=== PATIENT | male | born 1950 | race Caucasian/White ===

== ENCOUNTER 2018-11-09 15:27 | Observation (INO) ==
[2018-11-09] MEDS ORDERED: KETOROLAC 30 MG/ML VIAL IV STA (15:52)
[2018-11-09] MEDS ORDERED: LABETALOL HCL IV 5 MG/ML 20ML IV PRN ×2 (15:52→20:53)
[2018-11-09] MEDS ORDERED: MAGNESIUM SULFATE / D5W 1 GM/100 ML BAG IV ONE (15:52)
[2018-11-09] MEDS ORDERED: SODIUM CHLORIDE 0.9% 1000ML 1,000 ML IV SCH (16:00)
[2018-11-09 16:12] LABS: Basophils # (auto) 0.02 K/uL (0-0.2); Basophils % (auto) 0.2 %; Eosinophils # (auto) 0.21 K/uL (0-0.5); Eosinophils % (auto) 1.9 %; Hematocrit (blood only) 44.9 % (42-52); Hemoglobin 15.5 g/dL (14.0-18.0); Immature Granulocytes # (auto) 0.03 K/uL (0.00-0.02); Immature Granulocytes % (auto) 0.3 %; Lymphocytes # (auto) 2.25 K/uL (1.2-3.4); Lymphocytes % (auto) 20.2 %; Mean Corpuscular Hgb Conc 34.5 g/dL (32-36); Mean Corpuscular Volume 81.8 fL (80-100); Mean Platelet Volume 11.1 fL (7.4-10.4); Monocytes # (auto) 0.62 K/uL (0.11-0.59); Monocytes % (auto) 5.6 %; Neutrophils # (auto) 7.99 K/uL (1.4-6.5); Neutrophils % (auto) 71.8 %; Platelet Count 203 K/uL (130-400); RDW Coefficient of Variation 13.6 % (11.5-14.5); RDW Standard Deviation 40.5 fL (36.4-46.3); Red Blood Count 5.49 M/uL (4.7-6.1); White Blood Count 11.12 K/uL (4.8-10.8)
[2018-11-09 16:14] LABS: Partial Thromboplastin Ratio 0.9; Partial Thromboplastin Time 25.1 Seconds (21.0-31.0); Prothrombin Time 10.6 Seconds (9.0-12.0)
[2018-11-09 16:15] LABS: iSTAT Creatinine 1.2 mg/dl (0.6-1.3); iSTAT Hemoglobin 15.3 g/dl (14.0-18.0); iSTAT Ionized Calcium 1.19 mmol/l (1.12-1.32); iSTAT Potassium 3.9 mEq/L (3.3-5.0)
--- NOTE | 2018-11-09 16:22 | XRay Report ---
XR chest 1V portable CLINICAL HISTORY: Pt c/o Rt sided numbness COMPARISON STUDY: No previous studies for comparison. FINDINGS: The bones soft tissues and hemidiaphragms are normal. The cardiomediastinal silhouette is n ormal. The lungs are clear. The pulmonary vasculature is normal. IMPRESSION: Negative chest. The above report was generated using voice recognition software. It may contain grammatical, syntax or spelling errors. Electronically signed by: Phill Seo M.D. 11/09/2018 4:20 PM
[2018-11-09 16:30] LABS: Alanine Aminotransferase 23 U/L (12-78); Albumin Level 3.7 gm/dl (3.4-5.0); Aspartate Aminotransferase 7 U/L (15-37); BUN Creatinine Ratio 10.7 (10-20); Blood Urea Nitrogen 12 mg/dl (7-18); Calcium 8.8 mg/dl (8.5-10.1); Carbon Dioxide 28 mmol/L (21-32); Chloride 105 mmol/L (98-107); Creatinine Clr Calc Pharmacy 70.5 ml/min; Est GFR (African American) 74.8; Est GFR (Non-African American) 64.6; Glucose 114 mg/dl (70-99); Potassium 3.9 mmol/L (3.5-5.1); Sodium 139 mmol/L (136-145)
[2018-11-09 16:35] LABS: Albumin Globulin Ratio 0.9 (0.9-2); Alkaline Phosphatase 94 U/L (45-117); Bilirubin,Total 0.8 mg/dl (0.2-1); Creatine Kinase MB 1.5 ng/ml (0.5-3.6); Globulin 3.9 gm/dl (2.5-4.0); Total Protein 7.6 gm/dl (6.4-8.2); Troponin I < 0.015 ng/ml (0-0.045)
[2018-11-09] MEDS ORDERED: OPTIRAY 320 125ml IV PRN (17:32)
--- NOTE | 2018-11-09 17:49 | CT Scan Report ---
HEAD & NECK CTA HISTORY: Pt c/o Rt sided numbness TECHNIQUE: Multiaxial CT images of the head were performed both before and after the the intravenous administration of contrast to evaluate the major cerebral vessels. Multiaxial CT images of the neck w ere also performed following the intravenous administration of contrast to evaluate the major cervica l vessels. Maximum intensity projection images were also obtained. A dose lowering technique was util ized adhering to the principles of ALARA. COMPARISON: None. FINDINGS: There is no mass, hematoma, midline shift, or acute infarct. Partial opacification of the left spheno id sinus with a fluid level. Visualized intracranial internal carotid arteries, distal vertebral [place], and basilar artery are widely patent. There is no significant stenosis, occlusion, or aneurysm seen within the bilateral ACAs, MCAs, or window shade cloth sewer. The aortic arch and proximal great vessels are widely patent. There is no significant stenosis, occ lusion, or dissection identified within the bilateral common carotid, internal carotid, or vertebral arteries. IMPRESSION: 1. No acute intracranial abnormality. 2. Partial opacification of the left sphenoid sinus with a fluid level. 3. No significant stenosis, occlusion, or aneurysm within the [place]. 4. No significant stenosis, occlusion, or dissection identified within the carotid or vertebral arter ies. Electronically signed by: Gold Adhikari M.D. 11/09/2018 5:48 PM
--- NOTE | 2018-11-09 17:49 | CT Scan Report ---
HEAD & NECK CTA HISTORY: Pt c/o Rt sided numbness TECHNIQUE: Multiaxial CT images of the head were performed both before and after the the intravenous administration of contrast to evaluate the major cerebral vessels. Multiaxial CT images of the neck w ere also performed following the intravenous administration of contrast to evaluate the major cervica l vessels. Maximum intensity projection images were also obtained. A dose lowering technique was util ized adhering to the principles of ALARA. COMPARISON: None. FINDINGS: There is no mass, hematoma, midline shift, or acute infarct. Partial opacification of the left spheno id sinus with a fluid level. Visualized intracranial internal carotid arteries, distal vertebral [place], and basilar artery are widely patent. There is no significant stenosis, occlusion, or aneurysm seen within the bilateral ACAs, MCAs, or digital product manager. The aortic arch and proximal great vessels are widely patent. There is no significant stenosis, occ lusion, or dissection identified within the bilateral common carotid, internal carotid, or vertebral arteries. IMPRESSION: 1. No acute intracranial abnormality. 2. Partial opacification of the left sphenoid sinus with a fluid level. 3. No significant stenosis, occlusion, or aneurysm within the [place]. 4. No significant stenosis, occlusion, or dissection identified within the carotid or vertebral arter ies. Electronically signed by: Gold Adhikari M.D. 11/09/2018 5:48 PM
--- NOTE | 2018-11-09 17:49 | CT Scan Report ---
HEAD & NECK CTA HISTORY: Pt c/o Rt sided numbness TECHNIQUE: Multiaxial CT images of the head were performed both before and after the the intravenous administration of contrast to evaluate the major cerebral vessels. Multiaxial CT images of the neck w ere also performed following the intravenous administration of contrast to evaluate the major cervica l vessels. Maximum intensity projection images were also obtained. A dose lowering technique was util ized adhering to the principles of ALARA. COMPARISON: None. FINDINGS: There is no mass, hematoma, midline shift, or acute infarct. Partial opacification of the left spheno id sinus with a fluid level. Visualized intracranial internal carotid arteries, distal vertebral k[place], and basilar artery are widely patent. There is no significant stenosis, occlusion, or aneurysm seen within the bilateral ACAs, MCAs, or ui architect. The aortic arch and proximal great vessels are widely patent. There is no significant stenosis, occ lusion, or dissection identified within the bilateral common carotid, internal carotid, or vertebral arteries. IMPRESSION: 1. No acute intracranial abnormality. 2. Partial opacification of the left sphenoid sinus with a fluid level. 3. No significant stenosis, occlusion, or aneurysm within the [place]. 4. No significant stenosis, occlusion, or dissection identified within the carotid or vertebral arter ies. Electronically signed by: Gold Adhikari M.D. 11/09/2018 5:48 PM
--- NOTE | 2018-11-09 19:54 | History & Physical Report ---
Date of Service November 09, 2018 Assessment & Plan (1) Stroke-like symptoms: This is a 68-year-old male with a PMH of HTN,DM II, HLD and smokeless tobacco use who presents with right sided tingling starting yesterday. -Paresthesias in face and RLE have resolved. Still experiencing paresthesias of R arm -BP was initially elevated at 195/104. Was given IV labetalol x2 with pressure decreasing to 169/102 -Evaluate for stroke vs. hypertensive urgency -Allow for permissive HTN in setting of possible ischemic stroke. IV Labetalol 10mg Q4H PRN for SBP >190 -CT head, CTA head/neck without any acute abnormality -Ordered MRI brain w/wo, echo w/ bubble study -Given full dose aspirin, asa 81mg ordered for the morning -Neuro checks -PT, OT, speech therapy evaluations -Routine neurology consult (2) Diabetes mellitus, type II: A1c of 7.6 in Sep 2018 -Hold home agents -SSI while in-patient -BSG AC HS (3) Hypertension: Continue Lisinopril tomorrow -PRN Labetalol added with parameters (4) Hyperlipidemia: Continue atorvastatin DVT Ppx: SQ Lovenox Code status: FULL PCP: Whitney Cox Dispo: Observation med tele. Plan to return home once medically stable. Patient seen in collaboration with Dr. Lynn. Please see addendum. History of Present Illness Chief Complaint: Right sided numbness/paresthesias Primary Care Provider: Fabian Cox This is a 68-year-old male with a PMH of HTN,DM II and HLD who presents with right sided tingling starting yesterday. Patient first noticed tingling in his right arm yesterday and by today that feeling had spread to his face and in his right lower extremity as well. Denies any numbness or weakness of right side. Denies any confusion, difficulty speaking, swallowing, muscle weakness or difficulty with ambulation. Denies history of DVT/PE or stroke personally but has family history of stroke. Chews tobacco daily. Denies any fever, chills, lightheadedness, headache, chest pain, palpitations, shortness of breath, nausea, vomiting, dysuria, hematuria, diarrhea or constipation. Upon presentation in the ED, blood pressure was initially elevated at 195/104. Was given IV labetalol x2 with pressure decreasing to 169/102. Underwent CT head, CXR, head CTA and neck CTA which were negative for acute abnormalities. Allergies Allergy/AdvReac Type Severity Reaction Status Date / Time No Known Allergies Allergy NONE Unverified 11/09/18 16:42 Home Medications Home Medications Medication Instructions Recorded Confirmed Type atorvastatin [Lipitor] 40 mg PO DAILY 11/09/18 11/09/18 History glyburide 5 mg PO QAM 11/09/18 11/09/18 History lisinopril [Zestril] 20 mg PO DAILY 11/09/18 11/09/18 History metformin [Glucophage] 1,000 mg PO BID 11/09/18 11/09/18 History Past Med/Surg History Medical History Diabetes mellitus, type II (Chronic) Hyperlipidemia (Chronic) Hypertension (Chronic) Hypertensive urgency (Acute) Stroke-like symptoms (Acute) Diabetes (Resolved) Surgical History No pertinent past surgical history (Chronic) Family History Mother Stroke Diabetes Social History Preferred Language: [place] Communication Ability: Effective Beliefs That Will Affect Care: None Current Living Situation: Spouse Other Information That Helps Us Care for You: No Feels Safe at Home: Yes Safety Concerns: Feels Safe At This Time Smoking Status: Never smoker Hx Alcohol Use: Yes Hx Substance Use: No Review of Systems All systems reviewed & are unremarkable except as noted in HPI & below Physical Exam Vital Signs (Past 24 Hours): Last Vital Signs Temp 36.6 C 11/09/18 15:31 Pulse 61 11/09/18 18:30 Resp 20 11/09/18 18:30 BP 165/99 H 11/09/18 18:30 Pulse Ox 94 11/09/18 18:30 Physical Exam: General Appearance: WD/WN, no apparent distress, resting comfortably Head: normocephalic, atraumatic Eyes: normal inspection, PERRL, EOMI ENT: hearing grossly normal, pharynx normal (moist mucous membranes) Neck: supple, no JVD, no adenopathy Respiratory/Chest: lungs clear to auscultation. No wheezes, rales or rhonci. No respiratory distress or accessory muscle use Cardiovascular: regular rate, rhythm, no murmur, normal peripheral pulses Abdomen/GI: normal bowel sounds, soft, non-tender to palpation Extremities/Musculoskelatal: normal inspection, no calf tenderness, normal capillary refill, no pedal edema Neurologic/Psych: alert, normal mood/affect, oriented x 3. CN II-XII grossly intact. Strength and sensation intact throughout. Skin: normal color, warm/dry Results & Data Laboratory Results Short CBC 11/09/18 Range/Units 15:45 WBC 11.12 H (4.8-10.8) K/uL Hgb 15.5 (14.0-18.0) g/dL Hct 44.9 (42-52) % Plt Count 203 (130-400) K/uL BMP 11/09/18 15:45 Sodium 139 Potassium 3.9 Chloride 105 Carbon Dioxide 28 BUN 12 Creatinine 1.15 Glucose 114 H Calcium 8.8 Cardiac Enzymes 11/09/18 Range/Units 15:45 CK-MB (CK-2) 1.5 (0.5-3.6) ng/ml Troponin I < 0.015 (0-0.045) ng/ml Liver Function 11/09/18 Range/Units 15:45 Total Bilirubin 0.8 (0.2-1) mg/dl AST 7 L (15-37) U/L ALT 23 (12-78) U/L Alkaline Phosphatase 94 (45-117) U/L Albumin 3.7 (3.4-5.0) gm/dl Diagnostic Findings CT head: IMPRESSION: 1. No acute intracranial abnormality. 2. Partial opacification of the left sphenoid sinus with a fluid level. 3. No significant stenosis, occlusion, or aneurysm within the [place]. 4. No significant stenosis, occlusion, or dissection identified within the carotid or vertebral arteries. CXR: IMPRESSION: Negative chest. CTA head: IMPRESSION: 1. No acute intracranial abnormality. 2. Partial opacification of the left sphenoid sinus with a fluid level. 3. No significant stenosis, occlusion, or aneurysm within the [place]. 4. No significant stenosis, occlusion, or dissection identified within the carotid or vertebral arteries. CTA neck: IMPRESSION: 1. No acute intracranial abnormality. 2. Partial opacification of the left sphenoid sinus with a fluid level. 3. No significant stenosis, occlusion, or aneurysm within the [place]. 4. No significant stenosis, occlusion, or dissection identified within the carotid or vertebral arteries. Supervising Physician Co-Signing Physician Notes Care coordinated with Melissa CLARK. Agree with able note. Patient seen and examined. Please refer to her notes for full details. Vital signs reviewed. Physical exam: General exam: Alert and oriented. Not in acute distress. CVS: S1 and S2 heard, regular rate and rhythm, no murmurs. RS: Clear to auscultation, no wheezing or crackles. ABD: Soft, bowel sounds present, nontender, no distention. CARCASS WASHER: Nonfocal. EXT: No edema, no erythema. Labs: Reviewed. Assessment and plan: CVA presented with one day duration of right hand paraesthesia ct head , cta head and neck unremrkable received aspirin in MRI head shows small left thalamus acute/subacute infarct follow echo pt/ot neurology consult HTN elevated to allow permissive HTN continue to lisinopril labetolol prn for sbp>190 Other diagnosis and plan of care as per []. Sg carrillo MD.
[2018-11-09] MEDS ORDERED: ONDANSETRON INJ 2 MG/ML 2 ML VIAL IV PRN (20:48)
[2018-11-09] MEDS ORDERED: GLUCOSE 40% GEL 15 GM TUBE PO PRN (20:48)
[2018-11-09] MEDS ORDERED: PHARMACIST DISCHARGE MED REC CONSULT PRN (20:48)
[2018-11-09] MEDS ORDERED: GLUCOSE 10 TABS/TUBE PO PRN (20:48)
[2018-11-09] MEDS ORDERED: CARBOHYDRATES FOR HYPOGLYCEMIA PO PRN (20:48)
[2018-11-09] MEDS ORDERED: GLUCAGON FOR INJ 1 MG VIAL SQ PRN (20:48)
[2018-11-09] MEDS ORDERED: POLYETHYLENE (MIRALAX) 17 GM PACK PO PRN (20:48)
[2018-11-09] MEDS ORDERED: ACETAMINOPHEN 325 MG TAB PO PRN (20:48)
[2018-11-09] MEDS ORDERED: DEXTROSE 50% 50 ML SYRINGE IV PRN (20:48)
[2018-11-09] MEDS ORDERED: ASPIRIN CHEW 324 MG PO STA ×2 (20:53→20:54)
[2018-11-09] MEDS: INSULIN ASPART 100 UNITS/ML 3 ML PEN SC SCH (22:11)
[2018-11-09] MEDS ORDERED: GADOBUTROL 65ML VIAL IV PRN (22:22)
--- NOTE | 2018-11-09 22:34 | Magnetic Resonance Report ---
MR brain wo/w con CLINICAL HISTORY: Rsided paresthesias COMPARISON STUDY: No previous studies for comparison. TECHNIQUE: Utilizing a 1.5 Snow magnet and dedicated coil, multiplanar, multiecho imaging of the br ain was performed pre and postcontrast administration. IV administration of 10 [address] was uneventful. FINDINGS: Diffusion-weighted as well as T2 images show a small focus of increased signal within the p osterior left thalamus. This is consistent with a cyst acute/subacute infarct. It measures no more th an 8 mm. Signal characteristics of the cerebellar as well as cerebral hemispheres otherwise indicate component s of age-related atrophy and chronic small vessel change. Postcontrast images are considered negative for an enhancing lesion. The internal artery canals are s ymmetric. There is no abnormal postcontrast enhancement. IMPRESSION: 1. Small acute/subacute infarct left thalamus. 2. This measures no more than 8 mm. 3. Study is otherwise negative for age. 4. Mild age-appropriate chronic small vessel change and atrophy. The above report was generated using voice recognition software. It may contain grammatical, syntax or spelling errors. Electronically signed by: Phill Seo M.D. 11/09/2018 10:31 PM
--- NOTE | 2018-11-09 23:57 | Emergency Department Note ---
Entered by Eve Mccoy acting as a scribe for History of Present Illness General Chief complaint: Stroke/CVA Symptoms Stated complaint: NUMBNESS ON ENTIRE RIGHT SIDE, TIRED Time Seen by Provider: 11/09/18 15:45 Source: patient and family Mode of arrival: ambulatory Limitations: no limitations History of Present Illness Onset (ago): hour(s) 3 Location: right (right side of body) Radiation: non-radiation Pain Consistency: + constant Quality: + other (numbness) Relieved By: + none Exacerbated By: + none Associated symptoms: + other (-abdominal pain); no headaches Treatments prior to arrival: none The patient is a 68 year old male who presents to the Emergency Room with complaints of possible stroke symptoms. He admits to a history of hypertension, DM and hyperlipidemia. Yesterday afternoon, he developed numbness in the right side of his body. He denies any recent headache or abdominal pain. He states he felt fine yesterday. Home Medications Home Medications Medication Instructions Recorded Confirmed Type atorvastatin [Lipitor] 40 mg PO DAILY 11/09/18 11/09/18 History glyburide 5 mg PO QAM 11/09/18 11/09/18 History lisinopril [Zestril] 20 mg PO DAILY 11/09/18 11/09/18 History metformin [Glucophage] 1,000 mg PO BID 11/09/18 11/09/18 History Allergies Allergy/AdvReac Type Severity Reaction Status Date / Time No Known Allergies Allergy NONE Unverified 11/09/18 16:42 Past Med/Surg History Medical History Diabetes mellitus, type II (Chronic) Hyperlipidemia (Chronic) Hypertension (Chronic) Hypertensive urgency (Acute) Stroke-like symptoms (Acute) Diabetes (Resolved) Surgical History No pertinent past surgical history (Chronic) Family History Mother Stroke Diabetes Social History Preferred Language: Korean Communication Ability: Effective Beliefs That Will Affect Care: None Current Living Situation: Spouse Other Information That Helps Us Care for You: No Feels Safe at Home: Yes Safety Concerns: Feels Safe At This Time Smoking Status: Never smoker Hx Alcohol Use: Yes Hx Substance Use: No Review of Systems See HPI for pertinent positives & negatives. and A total of 10 systems reviewed and were otherwise negative Physical Exam Vital Signs Vital Signs - 24 hr 11/09/18 15:31 11/09/18 16:06 11/09/18 16:16 Temperature 36.6 C Temperature Source Oral Sepsis Recent Fever Within 48 Hours No Sepsis Action Taken by Nursing No Action Required Pulse Rate 72 70 70 Pulse Rate [Left Radial] Pulse Rate from SpO2 Sensor Pulse Rhythm Regular Pulse Strength Normal Respiratory Rate 16 17 18 Respiratory Effort / Characteristics Non-Labored Respiratory Depth Normal Respiratory Pattern Regular Blood Pressure 195/104 H 173/102 H 169/103 H Blood Pressure [Left Radial Artery] Blood Pressure Mean 134 125 125 Blood Pressure Mean [Left Radial Artery] Blood Pressure Position Sitting Pulse Oximetry 97 Oxygen Delivery Method Room Air 11/09/18 17:39 11/09/18 18:00 11/09/18 18:30 Temperature Temperature Source Sepsis Recent Fever Within 48 Hours Sepsis Action Taken by Nursing Pulse Rate 69 63 61 Pulse Rate [Left Radial] Pulse Rate from SpO2 Sensor 68 63 61 Pulse Rhythm Pulse Strength Respiratory Rate 14 14 20 Respiratory Effort / Characteristics Respiratory Depth Respiratory Pattern Blood Pressure 169/102 H 167/97 H 165/99 H Blood Pressure [Left Radial Artery] Blood Pressure Mean 124 120 121 Blood Pressure Mean [Left Radial Artery] Blood Pressure Position Pulse Oximetry 95 93 94 Oxygen Delivery Method Room Air Room Air Room Air 11/09/18 18:40 11/09/18 18:50 11/09/18 19:00 Temperature Temperature Source Sepsis Recent Fever Within 48 Hours Sepsis Action Taken by Nursing Pulse Rate 60 61 60 Pulse Rate [Left Radial] Pulse Rate from SpO2 Sensor 60 61 60 Pulse Rhythm Pulse Strength Respiratory Rate 16 16 15 Respiratory Effort / Characteristics Respiratory Depth Respiratory Pattern Blood Pressure 155/91 H Blood Pressure [Left Radial Artery] Blood Pressure Mean 112 Blood Pressure Mean [Left Radial Artery] Blood Pressure Position Pulse Oximetry 94 93 93 Oxygen Delivery Method 11/09/18 19:10 11/09/18 19:20 11/09/18 19:30 Temperature Temperature Source Sepsis Recent Fever Within 48 Hours Sepsis Action Taken by Nursing Pulse Rate 64 61 61 Pulse Rate [Left Radial] Pulse Rate from SpO2 Sensor 64 61 62 Pulse Rhythm Pulse Strength Respiratory Rate 18 15 17 Respiratory Effort / Characteristics Respiratory Depth Respiratory Pattern Blood Pressure 171/100 H Blood Pressure [Left Radial Artery] Blood Pressure Mean 123 Blood Pressure Mean [Left Radial Artery] Blood Pressure Position Pulse Oximetry 93 94 94 Oxygen Delivery Method 11/09/18 19:40 11/09/18 19:50 11/09/18 20:28 Temperature Temperature Source Sepsis Recent Fever Within 48 Hours Sepsis Action Taken by Nursing Pulse Rate 62 61 62 Pulse Rate [Left Radial] Pulse Rate from SpO2 Sensor 61 61 Pulse Rhythm Pulse Strength Respiratory Rate 15 19 16 Respiratory Effort / Characteristics Respiratory Depth Respiratory Pattern Blood Pressure 182/111 H Blood Pressure [Left Radial Artery] Blood Pressure Mean Blood Pressure Mean [Left Radial Artery] Blood Pressure Position Pulse Oximetry 93 93 98 Oxygen Delivery Method Room Air 11/09/18 20:55 11/09/18 23:12 Temperature 36.7 C 36.5 C Temperature Source Oral Oral Sepsis Recent Fever Within 48 Hours Sepsis Action Taken by Nursing Pulse Rate Pulse Rate [Left Radial] 60 60 Pulse Rate from SpO2 Sensor Pulse Rhythm Pulse Strength Respiratory Rate 22 22 Respiratory Effort / Characteristics Respiratory Depth Respiratory Pattern Blood Pressure Blood Pressure [Left Radial Artery] 205/102 H 178/100 H Blood Pressure Mean Blood Pressure Mean [Left Radial Artery] 136 126 Blood Pressure Position Pulse Oximetry 98 97 Oxygen Delivery Method GENERAL: Awake, alert, well-appearing, in no distress HENT: Normocephalic, atraumatic. Oropharynx unremarkable. EYES: Normal conjunctiva. Sclera non-icteric. NECK: Supple. No nuchal rigidity. FROM. No masses. RESPIRATORY: Clear to auscultation. No wheezes. No rales. Normal respiratory effort. CARDIAC: Normal rate. Normal rhythm. No murmurs. No rubs. Extremities warm and well perfused. Pulses equal. No JVD. GI: Soft, non-distended. No tenderness to palpation. No rebound or guarding. No masses. RECTAL: Deferred. MUSCULOSKELETAL: Atraumatic. Chest examination reveals no tenderness. The back is symmetrical on inspection without obvious abnormality. There is no CVA tenderness to palpation. No joint edema. LOWER EXTREMITIES: Calves are equal size bilaterally and non-tender. No edema. No discoloration. NEURO: Normal sensorium. No sensory or motor deficits noted. Course 1547: Past medical records reviewed. The patient was evaluated in room C12B, and a complete history and physical examination were performed. 163: I reevaluated the patient. He states he feels like hes getting better. 1807: I discussed the patients case with Melissa Castañeda PA-C, [facility] Hospital[facility]. The patient will be further evaluated. 2000: Nursing informed me she spoke to the patient and he would now like to go home. 2009: I reevaluated the patient. He is agreeable with remaining in the hospital for further evaluation and management. Consultations Consultation #1: I discussed the patients case with Melissa Castañeda PA-C, [facility] Hospitalist. The patient will be further evaluated. Time: 18:07 Administered Medications Gadobutrol (Gadavist 65ml) 9.5 ml IV ONCE PRN PRN Reason: Interaction Checking Stop: 11/13/18 22:21 Last Admin: 11/09/18 22:22 Dose: 9.5 ml Documented by: [id number] Insulin Aspart (Novolog Flexpen) 0 units SC ACHS JAKI Stop: 12/09/18 20:59 Last Admin: 11/09/18 22:11 Dose: Not Given Documented by: [id number] Cosigned by: [id number] Labetalol HCl (Normodyne) 10 mg IV Q4H PRN PRN Reason: SBP >190 Stop: 12/09/18 20:52 Last Admin: 11/09/18 21:25 Dose: 10 mg Documented by: [id number] Cosigned by: [id number] Discontinued Medications Aspirin (Aspirin) 324 mg PO NOW STA Stop: 11/09/18 20:54 Last Admin: 11/09/18 21:42 Dose: 324 mg Documented by: [id number] Magnesium Sulfate/Dextrose (Magnesium Sulfate / D5w) 1 gm in 100 mls @ 100 mls/hr IV ONE ONE Stop: 11/09/18 16:51 Last Infusion: 11/09/18 18:40 Dose: 0 mls/hr Documented by: [id number] Admin: 11/09/18 17:41 Dose: 100 mls/hr Documented by: [id number] Sodium Chloride (Nss 1000ml) 1,000 mls @ 50 mls/hr IV .Q20H JAKI Stop: 12/09/18 15:59 Last Infusion: 11/09/18 22:16 Dose: 0 mls/hr Documented by: [id number] Admin: 11/09/18 16:14 Dose: 50 mls/hr Documented by: [id number] Ioversol (Optiray 320 125ml) 116 ml IV ONCE PRN PRN Reason: Interaction Checking Stop: 11/13/18 17:31 Last Admin: 11/09/18 17:33 Dose: 116 ml Documented by: [id number] Ketorolac Tromethamine (Toradol) 30 mg IV NOW STA Stop: 11/09/18 15:53 Last Admin: 11/09/18 16:14 Dose: 30 mg Documented by: [id number] Medical Decision Making Differential Diagnosis Differential Diagnosis includes but is not limited to dehydration, stroke, anemia, hypoglycemia, hyponatremia, hypernatremia, urinary tract infection, pneumonia, bronchitis, sepsis, gastroenteritis, additional abdominal pathology, metabolic abnormalities and infections. Medical Records Attestation: I reviewed the patient's medical records. Home Medications Current Medication List: was personally reviewed by me Laboratory Data Attestation: I reviewed the patient's lab results. Result diagrams: 11/09/18 15:45 11/09/18 15:45 Lab Results 11/09/18 11/09/18 11/09/18 Range/Units 15:45 15:45 15:45 WBC 11.12 H (4.8-10.8) K/uL RBC 5.49 (4.7-6.1) M/uL Hgb 15.5 (14.0-18.0) g/dL POC Hgb (14.0-18.0) g/dl Hct 44.9 (42-52) % POC Hct (42-52) % MCV 81.8 (80-100) fL MCH 28.2 (25-34) pg MCHC 34.5 (32-36) g/dL RDW Std Deviation 40.5 (36.4-46.3) fL RDW Coeff of Delta 13.6 (11.5-14.5) % Plt Count 203 (130-400) K/uL MPV 11.1 H (7.4-10.4) fL Immature Gran % (Auto) 0.3 % Neut % (Auto) 71.8 % Lymph % (Auto) 20.2 % [place] % (Auto) 5.6 % Eos % (Auto) 1.9 % Baso % (Auto) 0.2 % Immature Gran # (Auto) 0.03 H (0.00-0.02) K/uL Neut # (Auto) 7.99 H (1.4-6.5) K/uL Lymph # (Auto) 2.25 (1.2-3.4) K/uL [place] # (Auto) 0.62 H (0.11-0.59) K/uL Eos # (Auto) 0.21 (0-0.5) K/uL Baso # (Auto) 0.02 (0-0.2) K/uL PT 10.6 (9.0-12.0) Seconds INR 1.0 (0.9-1.1) APTT 25.1 (21.0-31.0) Seconds PTT Ratio 0.9 POC Sodium (135-144) mEq/L Sodium 139 (136-145) mmol/L POC Potassium (3.3-5.0) mEq/L Potassium 3.9 (3.5-5.1) mmol/L POC Chloride (101-112) mEq/L Chloride 105 (98-107) mmol/L Carbon Dioxide 28 (21-32) mmol/L POC Total CO2 (24-31) mEq/l Anion Gap 6.0 (3-11) POC Anion Gap (16-25) mmol/L POC BUN (7-18) mg/dl BUN 12 (7-18) mg/dl Creatinine 1.15 (0.6-1.4) mg/dl POC Creatinine (0.6-1.3) mg/dl Est Cr Clr Drug Dosing 70.5 ml/min Est GFR ( Amer) 74.8 Est GFR (Non-Af Amer) 64.6 BUN/Creatinine Ratio 10.7 (10-20) Glucose 114 H (70-99) mg/dl POC Glucose (70-99) POC Glucose (other) (70-99) mg/dl Calcium 8.8 (8.5-10.1) mg/dl POC Ioniz Calcium Nava (1.12-1.32) mmol/l Magnesium 2.0 (1.8-2.4) mg/dl Total Bilirubin 0.8 (0.2-1) mg/dl AST 7 L (15-37) U/L ALT 23 (12-78) U/L Alkaline Phosphatase 94 (45-117) U/L CK-MB (CK-2) 1.5 (0.5-3.6) ng/ml Troponin I < 0.015 (0-0.045) ng/ml Total Protein 7.6 (6.4-8.2) gm/dl Albumin 3.7 (3.4-5.0) gm/dl Globulin 3.9 (2.5-4.0) gm/dl Albumin/Globulin Ratio 0.9 (0.9-2) 11/09/18 11/09/18 Range/Units 16:03 20:52 WBC (4.8-10.8) K/uL RBC (4.7-6.1) M/uL Hgb (14.0-18.0) g/dL POC Hgb 15.3 (14.0-18.0) g/dl Hct (42-52) % POC Hct 45 (42-52) % MCV (80-100) fL MCH (25-34) pg MCHC (32-36) g/dL RDW Std Deviation (36.4-46.3) fL RDW Coeff of Delta (11.5-14.5) % Plt Count (130-400) K/uL MPV (7.4-10.4) fL Immature Gran % (Auto) % Neut % (Auto) % Lymph % (Auto) % [place] % (Auto) % Eos % (Auto) % Baso % (Auto) % Immature Gran # (Auto) (0.00-0.02) K/uL Neut # (Auto) (1.4-6.5) K/uL Lymph # (Auto) (1.2-3.4) K/uL [place] # (Auto) (0.11-0.59) K/uL Eos # (Auto) (0-0.5) K/uL Baso # (Auto) (0-0.2) K/uL PT (9.0-12.0) Seconds INR (0.9-1.1) APTT (21.0-31.0) Seconds PTT Ratio POC Sodium 142 (135-144) mEq/L Sodium (136-145) mmol/L POC Potassium 3.9 (3.3-5.0) mEq/L Potassium (3.5-5.1) mmol/L POC Chloride 100 L (101-112) mEq/L Chloride (98-107) mmol/L Carbon Dioxide (21-32) mmol/L POC Total CO2 27 (24-31) mEq/l Anion Gap (3-11) POC Anion Gap 20.0 (16-25) mmol/L POC BUN 12 (7-18) mg/dl BUN (7-18) mg/dl Creatinine (0.6-1.4) mg/dl POC Creatinine 1.2 (0.6-1.3) mg/dl Est Cr Clr Drug Dosing ml/min Est GFR ( Amer) Est GFR (Non-Af Amer) BUN/Creatinine Ratio (10-20) Glucose (70-99) mg/dl POC Glucose 94 (70-99) POC Glucose (other) 118 H (70-99) mg/dl Calcium (8.5-10.1) mg/dl POC Ioniz Calcium Nava 1.19 (1.12-1.32) mmol/l Magnesium (1.8-2.4) mg/dl Total Bilirubin (0.2-1) mg/dl AST (15-37) U/L ALT (12-78) U/L Alkaline Phosphatase (45-117) U/L CK-MB (CK-2) (0.5-3.6) ng/ml Troponin I (0-0.045) ng/ml Total Protein (6.4-8.2) gm/dl Albumin (3.4-5.0) gm/dl Globulin (2.5-4.0) gm/dl Albumin/Globulin Ratio (0.9-2) Imaging Data Radiologist's Impression: Radiology results as stated below per my review and the radiologist's interpretation: XR chest 1V portable CLINICAL HISTORY: Pt c/o Rt sided numbness COMPARISON STUDY: No previous studies for comparison. FINDINGS: The bones soft tissues and hemidiaphragms are normal. The cardiomediastinal silhouette is normal. The lungs are clear. The pulmonary vasculature is normal. IMPRESSION: Negative chest. The above report was generated using voice recognition software. It may contain grammatical, syntax or spelling errors. Electronically signed by: Phill Seo M.D. 11/09/2018 4:20 PM HEAD & NECK CTA HISTORY: Pt c/o Rt sided numbness TECHNIQUE: Multiaxial CT images of the head were performed both before and after the the intravenous administration of contrast to evaluate the major cerebral vessels. Multiaxial CT images of the neck were also performed following the intravenous administration of contrast to evaluate the major cervical vessels. Maximum intensity projection images were also obtained. A dose lowering technique was utilized adhering to the principles of ALARA. COMPARISON: None. FINDINGS: There is no mass, hematoma, midline shift, or acute infarct. Partial opacification of the left sphenoid sinus with a fluid level. Visualized intracranial internal carotid arteries, distal vertebral arteries, and basilar artery are widely patent. There is no significant stenosis, occlusion, or aneurysm seen within the bilateral ACAs, MCAs, or electronics technician. The aortic arch and proximal great vessels are widely patent. There is no significant stenosis, occlusion, or dissection identified within the bilateral common carotid, internal carotid, or vertebral arteries. IMPRESSION: 1. No acute intracranial abnormality. 2. Partial opacification of the left sphenoid sinus with a fluid level. 3. No significant stenosis, occlusion, or aneurysm within the [place]. 4. No significant stenosis, occlusion, or dissection identified within the carotid or vertebral arteries. Electronically signed by: Gold Adhikari M.D. 11/09/2018 5:48 PM ECG Data Attestation: I personally reviewed and interpreted this ECG as follows: Indication: weakness Rate (beats per minute): 73 Rhythm: normal sinus Findings: no ST depression and no ST elevation Blood Pressure Blood Pressure Findings: Elevated blood pressure Blood Pressure Disposition: further management by hospitalist [facility] Narrative This is a 68-year-old male who presents emergency department complaining of right sided numbness that started in the patient's leg arm and right side of his face. I would note that the patient has diabetes has high cholesterol and hype rtension. Upon arrival to the emergency department the patient's blood pressure is grossly elevated for this reason he was given IV labetalol. I am concerned that the patient has had either CVA or hypertensive urgency. Based on this I did discuss the case with the hospitalist service who agreed to admit the patient. Impression & Plan Hypertensive urgency Discharge Plan Visit Data *Final* Discharge Date/Time: 11/09/18 20:28 Chief Complaint: Stroke/CVA Symptoms Stated Complaint: NUMBNESS ON ENTIRE RIGHT SIDE, TIRED ED Provider: Cezar Hannah Discharge Problem: Hypertensive urgency Patient Disposition: Admitted As Inpatient Discharge Instructions Interventions: ED Discharge Assessment Last Done: 11/09/18 20:28 The scribe's documentation has been prepared under my direction and personally reviewed by me in its entirety. I confirm that the note above accurately reflects all work, treatment, procedures, and medical decision making performed by me.
[2018-11-10 07:57] LABS: Estimated Average Glucose 169 mg/dl; Hemoglobin A1C 7.5 % (4.5-5.6)
[2018-11-10] MEDS: ATORVASTATIN 40 MG TAB PO SCH (08:17)
[2018-11-10] MEDS: LISINOPRIL 20 MG TAB PO SCH (08:17)
[2018-11-10] MEDS: INSULIN ASPART 100 UNITS/ML 3 ML PEN SC SCH ×4 (08:18→21:55)
[2018-11-10] MEDS: ASPIRIN 81 MG ECTAB PO SCH (08:18)
[2018-11-10] MEDS: ENOXAPARIN INJ 40 MG/0.4 ML SYR SQ SCH (08:40)
[2018-11-10 08:41] LABS: Hematocrit (blood only) 41.8 % (42-52); Hemoglobin 14.5 g/dL (14.0-18.0); Mean Corpuscular Hgb Conc 34.7 g/dL (32-36); Mean Platelet Volume 11.1 fL (7.4-10.4); Platelet Count 179 K/uL (130-400); RDW Coefficient of Variation 13.6 % (11.5-14.5); RDW Standard Deviation 40.6 fL (36.4-46.3); White Blood Count 7.37 K/uL (4.8-10.8)
[2018-11-10 08:53] LABS: Partial Thromboplastin Ratio 0.9; Partial Thromboplastin Time 25.6 Seconds (21.0-31.0)
[2018-11-10 09:08] LABS: BUN Creatinine Ratio 12.2 (10-20); Calcium 8.6 mg/dl (8.5-10.1); Creatinine Clr Calc Pharmacy 74.1 ml/min; Est GFR (African American) 79.8; Est GFR (Non-African American) 68.9; Potassium 4.2 mmol/L (3.5-5.1)
--- NOTE | 2018-11-10 12:37 | Communication Note ---
Date of Service: November 10, 2018 I seen Mr. Soares today, examined him, reviewed his imaging and laboratory data and agreed with the diagnosis of a small vessel left thalamic infarction due to involvement of posterior cerebral originating Perforating vessels I have added Plavix to his regimen with recommendations that it be continued for 30 days. I will see him back in the clinic in about a month at which point I will probably simply continue him on a single baby aspirin a day. Despite his vascular risk factors this man was not taking aspirin on a regular basis. His other risk factors seem to be well managed but I will leave any changes up to the current internal medicine hospitalist staff. I believe he should be held another 24 hours in the hospital at least until los morning and if stable could be discharged as long as physical therapy occupational therapy and speech therapy agree. I feel he probably should avoid his occupation and rest for about a week and probably should be seen by his primary care physician prior to returning to work. Full neurologic consultation has been dictated and will be signed went typed. Artemio Babin MD
--- NOTE | 2018-11-10 13:50 | Hospitalist Progress Note ---
Date of Service November 10, 2018 Assessment & Plan (1) Acute CVA (cerebrovascular accident): Resented with right-sided numbness/paresthesia MRI of brain shows acute/subacute left thalamic infarct, with chronic small vessels disease Appreciate input from neurology CT of brain and neck shows no evidence of vascular stenosis or aneurysm Echocardiogram: Shows no evidence of cardiac thrombus Patient is continued with aspirin and Plavix: Per neurology dual antiplatelet should be continued for at least 30 days, Follow-up with neurology in 4 weeks, If no further neurological event, patient can be transitioned to single antiplatelet Continue on statin Goal LDL less than 70 Reports of short-term memory loss, son reports: 2 weeks back patient forgot to take a turn/to drive back home he lived for 30 years Also family noted patient will repeat the same questions after 10 minutes with no recollection of prior conversation Patient is a high school assistant football coach: We will discuss with neurology, for 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/ Patient will be asked not to drive for 1 week until evaluated by primary care physician If there is persistent memory, coordination deficit, DMV should will be notified, it will be prudent for patient to change his carrier as a high school assistant football coach Above plan discussed with both patient and patient , both in agreement Present on Admission?: Yes (2) Stroke-like symptoms: -Presented with paresthesias in face and weakness RLE -both of which has resolved Still has paresthesias of R arm -Secondary to acute/subacute left thalamic CVA-noted MRI of brain -CT head, CTA head/neck without any acute abnormality Patient is continued with aspirin Plavix, statin Appreciate input from neurology Present on Admission?: Yes (3) Diabetes mellitus, type II: A1c of 7.6 in Sep 2018 -Hold home agents -SSI while in-patient -BSG AC HS Present on Admission?: Yes (4) Hypertension: Presented with hypertensive urgency: Systolic blood pressure elevated more than 200 in the setting of acute CVA Permissive hypertension allowed an acute stroke, for cerebral perfusion Patient is continued with lisinopril 20 mg daily Goal to keep systolic blood pressure above 160 Present on Admission?: Yes (5) Hyperlipidemia: Continue atorvastatin Goal LDL less than 70 DVT Ppx: SQ Lovenox Code status: FULL PCP: Whitney Cox Disposition: Possible discharge home tomorrow, monitor overnight in telemetry Medicine follow-up with Dr. Fabian Cox Neurology follow-up with Dr. Babin Subjective Patient reports of improved numbness, tingling of right arm, no weakness or paresthesia, no headache, no blurred vision Speech fluent, No dysphasia or difficulty swallowing Dizzy spell and lightheaded Sitting up on edge of bed, communicating appropriately, family present Physical Exam Vital Signs (Past 24 Hours): Last Vital Signs Temp 36.6 C 11/10/18 12:09 Pulse 69 11/10/18 12:09 Resp 18 11/10/18 12:09 BP 187/88 H 11/10/18 12:09 Pulse Ox 95 11/10/18 12:09 Constitutional: WD/WN, vitals as above well developed; no acute distress Eyes: PERRL, conjunctivae normal, anicteric sclerae ENMT: external ear and nose normal, oropharynx normal Neck: trachea midline, no thyromegaly Respiratory: normal respiratory effort, lungs clear to auscultation Cardiovascular: RRR, no murmur, no edema Gastrointestinal (Abdomen): normal bowel sounds, soft, nontender, no hepatosplenomegaly Musculoskeletal: no cyanosis or clubbing, extremities motor strength 5/5 Skin: no rashes, warm and dry Neurologic: PERRL, EOMI, accommodation nl, no face palsy, no dysarthria Psychiatric: reports of short-term memory loss, (1) Diabetes mellitus, type II Diabetes mellitus [facility] insulin use: unspecified termite technician insulin use status Diabetes mellitus complication status: without complication Qualified Code(s): E11.9 - Type 2 diabetes mellitus without complications (2) Hyperlipidemia Hyperlipidemia type: other hyperlipidemia Qualified Code(s): E78.49 - Other hyperlipidemia; E78.4 - Other hyperlipidemia (3) Hypertension Hypertension type: unspecified Qualified Code(s): I10 - Essential (primary) hypertension
--- NOTE | 2018-11-10 21:25 | Consultation Report ---
DATE OF CONSULTATION: 11/10/[address] Nava. HISTORY OF PRESENT ILLNESS: Kulwinder is 68 years old, patient of Dr. Fabian Cox and has a history of diabetes, hypertension, and dyslipidemia and has been treated with appropriate medications for these vascular risk factors at home but has never been on aspirin. He presents now with a 2-day history of paresthesias involving the left arm initially then spreading to involve the left leg and proceeding proximally up the left side, the shoulder and into the left neck over a period of about 36-48 hours. Culminating in a visit to the Emergency Room yesterday with a thorough evaluation with imaging studies, etc., and then stabilization overnight with no further progression and in fact some regression of his paresthesia like symptoms since admission. He was evaluated initially with a CT, CTA and no acute abnormalities were seen. An MRI has subsequently shown an infarction in the left thalamus which would clinically fit the symptoms and shows few areas of prior assumed small vessel events in the remote past. He was given full dose aspirin, now is on 81 mg of aspirin and has had PT/OT evaluations and according to him is doing well and is walking in the halls as paresthesias are now less evident. He has had no worsening. He has been treated with permissive hypertension. He continues on his atorvastatin and is on subQ Lovenox in addition to the aspirin. PAST MEDICAL HISTORY: As noted above. Past medical history reveals that the patient has hypertension, dyslipidemia, some diabetes type 2. He has had a history of hypertensive urgency and now had had the stroke-like symptoms. MEDICATIONS AT HOME: Include atorvastatin, glyburide, lisinopril, metformin. ALLERGIES: He has no known allergies. PAST SURGICAL HISTORY: Surgically, he has had no prior surgical history. FAMILY HISTORY: Reveals stroke and diabetes in his mother. 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 He has never been a smoker. He does not consume ethanol on any significant amounts. REVIEW OF SYSTEMS: Twelve point systems review with exception of history of present illness and past medical history is really unremarkable and there is certainly no new issues referable to head, eyes, ears, nose and throat, cardiovascular, pulmonary, gastrointestinal, genitourinary, musculoskeletal, dermatologic, hematologic or endocrinologic systems and neurologically, he does not recall having any episodes of similar type in the past or recently. He has really had no motor deficits, no trouble with control of bowel or bladder. No visual deficits, speech problems or language disturbance during the current event. PHYSICAL EXAMINATION: VITAL SIGNS: Blood pressure was 165/99, pulse was 61, respirations were 16. GENERAL: He was well-developed, well-nourished did not appear to be in acute distress. Speech was clear. HEENT: Normal. NECK: Supple. No bruits were heard. LUNGS: Clear. HEART: Had a regular rhythm. No murmurs were appreciated. ABDOMEN: Soft, nontender without hepatosplenomegaly. EXTREMITIES: Free of edema. Pulses were symmetrical. NEUROLOGIC: Today neurologically, he really has intact cranial nerves, normal visual iraheta, normal extraocular movements, normal facial motility and strength, and mildly reduced on the right side of his face which is pretty subjective, and slight altered appreciation of light touch, vibration on the right forearm and to a lesser degree the right leg. There is no significant drift other than a little pronation of the right arm when it is held outstretched, there is no neglect. Shoulder rapid repetitive motion is normal. Reflexes are 1+ symmetrical. Toes are downgoing. No Char signs are seen. Strength testing is quite normal and again sensation reveals some subjective mild alteration in all primary modalities on the right arm and right leg and to a lesser degree of the right face. ASSESSMENT AND PLAN: At this point, the history is certainly consistent with an evolving deep small vessel event involving the left thalamus with a progressive sensory deficit that is now beginning to resolve. I agree with the use of baby aspirin, but in this setting, I would probably add Plavix 75 mg daily for about a month and have the patient return to see myself and neurologic followup at which point I will probably just continue him on aspirin. This is probably excessive as I think a single antiplatelet agent would probably be sufficient in this antiplatelet therapy naive individual but dual therapy in this setting with an acute stroke is often favored marginally and certainly the duration would be short, i.e., a month and not three at this point. Otherwise, I do not think he needs any further workup. 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 He probably ought to see his primary care physician for an overall assessment of his blood pressure, etc. If he is asymptomatic or significantly improved at that time he probably could go back to driving. I should take a look at him in about a month on the combination of aspirin and Plavix Addendum: After the above note was dictated Dr Nava was informed by the family about some cognitive issues that predate the cva Driving may have to be restricted and school but driving eliminated unitl this this further evaluated I will explore further on nette tomorrow SIMI
[2018-11-11 07:53] LABS: Hematocrit (blood only) 41.8 % (42-52); Hemoglobin 14.5 g/dL (14.0-18.0); Mean Corpuscular Hgb Conc 34.7 g/dL (32-36); Mean Corpuscular Volume 80.9 fL (80-100); Platelet Count 178 K/uL (130-400); RDW Coefficient of Variation 13.5 % (11.5-14.5); RDW Standard Deviation 39.6 fL (36.4-46.3); Red Blood Count 5.17 M/uL (4.7-6.1); White Blood Count 8.55 K/uL (4.8-10.8)
[2018-11-11 08:26] LABS: BUN Creatinine Ratio 13.8 (10-20); Calcium 8.6 mg/dl (8.5-10.1); Creatinine Clr Calc Pharmacy 73.4 ml/min; Est GFR (Non-African American) 68.1
[2018-11-11] MEDS ORDERED: CLOPIDOGREL BISULFATE 75 MG TAB PO SCH (09:00)
[2018-11-11] MEDS: LISINOPRIL 20 MG TAB PO SCH (09:11)
[2018-11-11] MEDS: ATORVASTATIN 40 MG TAB PO SCH (09:11)
[2018-11-11] MEDS: ENOXAPARIN INJ 40 MG/0.4 ML SYR SQ SCH (09:12)
[2018-11-11] MEDS: ASPIRIN 81 MG ECTAB PO SCH (09:12)
[2018-11-11] MEDS: INSULIN ASPART 100 UNITS/ML 3 ML PEN SC SCH ×2 (09:13→12:58)
--- NOTE | 2018-11-11 12:51 | Communication Note ---
Date of Service: November 11, 2018 I saw Mr. Soares today in the company of his and discussed his case with Dr. Nava over the last day. He is significantly improved the paresthesias which involves the entire right side of his body are now localized to the dorsal right forearm and to some degree of the right face. He is developed no motor deficits other than a very mild right facial asymmetry which is asymptomatic. All this is consistent with his left thalamic infarct which evolved over a period of 36 hours and is undoubtedly due to a localized small vessel event. We are going to treat him with 1 months of combined antiplatelet therapy and we will see him back in the office in the months of which point I will probably simply keep him on aspirin as he was on no antiplatelet agents prior to his admission. 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 This will be handled by his primary care physician will be an outpatient process. There is an undercurrent of question about some low-grade cognitive impairment as per Dr. Nava's discussion with the family yesterday this may simply reflect an early minimal cognitive impairment syndrome and in of itself would not be grounds to keep this man from operating his personal motor vehicle in [place] [employer]. When I see him again in a month I will readdress this issue along with converting him to aspirin monotherapy. I would suggest however that he refrain from driving any motor vehicle for 1 week after the current vascular event to allow any low-grade residual deficits to resolve and to allow the central nervous system to recover from the effects of diaschesis (nonspecific generalized depression of cerebral function that occurs after even a small localized cerebrovascular event) I have discussed these issues with Dr. Elijah Babin MD
[2018-11-11] MEDS ORDERED: STROKE PATIENT DISCHARGE STA (13:38)
--- NOTE | 2018-11-11 13:46 | Discharge Summary ---
Date of Service November 11, 2018 Admission HPI Per Admitting Provider This is a 68-year-old male with a PMH of HTN,DM II and HLD who presents with right sided tingling starting yesterday. Patient first noticed tingling in his right arm yesterday and by today that feeling had spread to his face and in his right lower extremity as well. Denies any numbness or weakness of right side. Denies any confusion, difficulty speaking, swallowing, muscle weakness or difficulty with ambulation. Denies history of DVT/PE or stroke personally but has family history of stroke. Chews tobacco daily. Denies any fever, chills, lightheadedness, headache, chest pain, palpitations, shortness of breath, nausea, vomiting, dysuria, hematuria, diarrhea or constipation. Upon presentation in the ED, blood pressure was initially elevated at 195/104. Was given IV labetalol x2 with pressure decreasing to 169/102. Underwent CT head, CXR, head CTA and neck CTA which were negative for acute abnormalities. Principal Diagnosis acute /sub acute left thalamic CVA Discharge Exam Constitutional WD/WN, vitals as above well developed; no acute distress Eyes PERRL, conjunctivae normal, anicteric sclerae ENMT external ear and nose normal, oropharynx normal Neck trachea midline, no thyromegaly Respiratory normal respiratory effort, lungs clear to auscultation Cardiovascular RRR, no murmur, no edema Gastrointestinal (Abdomen) normal bowel sounds, soft, nontender, no hepatosplenomegaly Musculoskeletal no cyanosis or clubbing, extremities motor strength 5/5 Skin no rashes, warm and dry Neurologic PERRL, EOMI, accommodation nl, no face palsy, no dysarthria Discharge Data Allergies Allergy/AdvReac Type Severity Reaction Status Date / Time No Known Allergies Allergy NONE Unverified 11/09/18 16:42 Consultations 11/09/18 18:08 ED Decision to Admit Stat 11/09/18 20:48 Consult Case Management - Discharge Planning Routine 11/10/18 09:00 Consult Neurology Routine Ordered Studies 11/09/18 15:52 CT head/brain wo con Stat 11/09/18 15:53 CT angio head w con Stat 11/09/18 15:54 CT angio neck with con Stat 11/09/18 20:48 MR brain wo/w con Routine Hospital Course (1) Acute CVA (cerebrovascular accident): Resented with right-sided numbness/paresthesia symptom has resolved completely MRI of brain shows acute/subacute left thalamic infarct, with chronic small vessels disease Appreciate input from neurology CT of brain and neck shows no evidence of vascular stenosis or aneurysm Echocardiogram: Shows no evidence of cardiac thrombus Patient is continued with aspirin and Plavix: Per neurology dual antiplatelet should be continued for at least 30 days, Follow-up with neurology in 4 weeks, If no further neurological event, patient can be transitioned to single antiplatelet-Aspirin 81 mg daily Continue on statin Fasting lipid panel shows LDL 63 ( Goal LDL less than 70 Reports of short-term memory loss, son reports: 2 weeks back patient forgot to take a turn/to drive back home he lived for 30 years Also family noted patient will repeat the same questions after 10 minutes with no recollection of prior conversation Patient is a elementary school registrar: ed discuss with neurology, for 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/ Patient will be asked not to drive for 1 week until evaluated by primary care physician If there is persistent memory, coordination deficit, DMV will be notified, will fill out DCL 120 form note to work given to patient -stating will need re evaluation for CDL /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 Above plan discussed with both patient and patient , both in agreement (2) Stroke-like symptoms: -Presented with paresthesias in face and weakness RLE -both of which has resolved symptom has resolved -Secondary to acute/subacute left thalamic CVA-noted MRI of brain -CT head, CTA head/neck without any acute abnormality Patient is continued with aspirin Plavix, statin Appreciate input from neurology (3) Diabetes mellitus, type II: A1c of 7.6 in Sep 2018 -Hold home agents [facility] (4) Hypertension: Presented with hypertensive urgency: Systolic blood pressure elevated more than 200 in the setting of acute CVA Permissive hypertension allowed an acute stroke, for cerebral perfusion Patient is continued with lisinopril 20 mg daily Goal to keep systolic blood pressure above 160 (5) Hyperlipidemia: Continue atorvastatin Goal LDL less than 70 DVT Ppx: SQ Lovenox Code status: FULL PCP: Whitney Friedman Disposition: stable to be discharged home today Medicine follow-up with Dr. Neil Friedman Neurology follow-up with Dr. Powell Total Time Total Time Spent Total Time Spent (In Minutes): approx 40 mins Total Time Includes: Examination of the Patient, Discharge Planning, Medication Reconciliation and Communication With Other Providers Discharge Plan Discharge Items Patient Disposition: Home - Self-Care Reason For Visit: R SIDED PARESTHESIAS Discharge Diagnosis: acute /sub acute left thalamic CVA Discharge Goals: Decrease discomfort, Diagnostic testing and Therapeutic intervention Activity: Per 'Additional Instructions' section Driving/Machine Use Comment: DO NOT DRIVE TILL SEEN BY FAMILY PHYSICIAN Non-emergency contact: Primary Care Provider Call non-emergency contact if: you have any medication questions and your symptoms worsen Follow-up/Referrals: Artemio Powell MD [Physician] - (NEUROLOGY FOLLOW UP IN 4 WEEKS OFFICE WILL CALL WITH APPOINTMENT ) Neil Friedman [Primary Care Provider] - 11/16/18 1:00 pm Diet: Heart Healthy Addtl Provider Instructions: TAKE ASPIRIN 81 MG AND PLAVIX 75 MG WITH FOOD /AFTER THE BIGGEST MEAL OF THE DAY - TO PREVENT SEVERE STOMACH IRRITATION , BLEEDING IN STOMACH PLEASE NOTIFY YOUR FAMILY PHYSICIAN WITH ANY EVIDENCE OF BLOOD IN STOOL OR DARK COLOUR STOOL YOU WILL BE SEEN BY DR POWELL IN A MONTH AND POSSIBLE WILL BE ON ASPIRIN 81 MG DAILY AFTER THAT DUE TO RECENT STROKE 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 Some specific ways to lower your chance of stroke are: * If you are a smoker, now is the time to stop smoking cigarettes * If you are diabetic, improve the control of your blood sugars * Avoid excessive amounts of alcohol * Control high blood pressure * Lose weight if you are overweight * Be sure to lead an active lifestyle * Eat a healthy diet low in salt, cholesterol and fat You should know about other risk factors for stroke that you are unable to control. These include: * Age 55 years or older * Male gender * Certain racial groups: , or / * Family History of Stroke, Mini stroke or Heart Attack * Sickle Cell Disease Follow Up: It is important for you to keep your follow up appointments with your medical provider. Who to Call and When: Medical Emergencies: Call 911 immediately if you experience any of the following warning signs and symptoms of Stroke: * Sudden numbness or weakness of the face, arm or leg, especially on one side of the body * Sudden confusion, trouble speaking or understanding * Sudden trouble seeing in one or both eyes * Sudden trouble walking, dizziness, loss of balance or coordination * Sudden severe headache with no cause Do not delay calling 911 if you experience any warning signs or symptoms of a stroke. Delay in seeking medical attention may affect what treatments can be given to you. .DO NOT DRIVE TILL SEEN BY DR NEIL FRIEDMAN YOU NEED TO BE RE EVALUATED FOR SCHOOL BUS DRIVING Prescriptions: New clopidogrel 75 mg Tablet 75 mg PO QAM 30 Days Qty: 30 RF: 3 aspirin [Ecotrin Low Strength] 81 mg Tablet,Delayed Release (Dr/Ec) 81 mg PO QAM 30 Days Qty: 30 RF: 3 Continued atorvastatin [Lipitor] 40 mg tablet 40 mg PO DAILY RF: 0 metformin [Glucophage] 500 mg tablet 1,000 mg PO BID RF: 0 glyburide 5 mg tablet 5 mg PO QAM RF: 0 lisinopril [Zestril] 20 mg tablet 20 mg PO DAILY RF: 0 Stand-Alone Forms: Medications to Prevent Stroke, My [facility], Work/School Release (Inpt) Kr[employer]/Other Patient Handouts: Stroke Dc Discharge Orders: Discharge Order (Routine); Ordered 11/11/18 Ordered By: Em Nava Admission Data Admit Date/Time: 11/09/18 19:39 Attending Provider: Em Nava Admit Provider: Sg Lynn Primary Care Provider: Neil Friedman Other Providers: Artemio Powell Gary Service: Telemetry Medical Other Interventions: Discharge Summary Assessment (RN) Last Done: 11/11/18 14:10 DC Date/Time DO NOT enter until pt leaves facility: 11/11/18 15:04
--- NOTE | 2018-11-11 14:19 | Pharmacy Report ---
Pharmacist Stroke Counseling - Date of Service November 11, 2018 - Scope: Pharmacy has been consulted to provide medication discharge counseling for this patient admitted with CVA as per the Pharmacist Discharge Counseling for Stroke Patients Protocol. - Medications on Discharge: Home Medications Medication Instructions Recorded Confirmed atorvastatin [Lipitor] 40 mg PO DAILY 11/09/18 11/09/18 glyburide 5 mg PO QAM 11/09/18 11/09/18 lisinopril [Zestril] 20 mg PO DAILY 11/09/18 11/09/18 metformin [Glucophage] 1,000 mg PO BID 11/09/18 11/09/18 New Rx's Medication Instructions Recorded aspirin [Ecotrin Low Strength] 81 mg PO QAM 30 Days #30 tab 11/11/18 clopidogrel 75 mg PO QAM 30 Days #30 tab 11/11/18 - Action: The above medications, specifically ones for stroke treatment/prophylaxis, have been reviewed in detail with the patient and/or patient customer solutions representative(s) prior to discharge. This includes indication, common adverse reactions, drug interactions, and medication administration. Medication counseling has been employed using the teach-back method to ensure understanding. - Outcome: The patient and/or patient customer solutions representative(s) have demonstrated understanding of the medications. Please note, they are aware that the pharmacist will call them within 72 hours post-discharge to confirm that the appropriate medications are being taken and answer any further medication related questions the patient might have at that time. Contact information Individual to be contacted: Kulwinder or Alicia Relationship to patient (if applicable): self/ Phone number: [phone] Best time to call: 9am - 12pm Additional comments: Thank you for allowing pharmacy to be involved in the care of this patient. Please call [phone] or [phone] with any additional questions
--- NOTE | 2018-11-15 10:35 | Pharmacy Report ---
Pharmacist Post D/C Phone Note - Phone Note: Date of phone call: November 15, 2018. Individual with whom pharmacist spoke to: JERO MEDINA SR The following questions were reviewed during the phone call with responses listed below each: Can you tell me the medications that you are currently taking as well as when and how you take each medication? -See Table Below When have you missed any doses of your medications? - No What side effects are you having from your medications, specifically, the new medications you were started on? - Some stomach upset with the aspirin. He is taking this medication with food. What questions do you have about your medications? - Not at this time What problems are you having obtaining your medications? - No When is your next appointment with your primary care doctor? - This Thursday 11/16 with Ranjith De La Cruz. His appointment with Neurology is in ~1 month. Additional comments: - N/A As per the Pharmacist Discharge Counseling for Stroke Patients Protocol, this phone call has been completed within 72 hours of discharge. Thank you for allowing us to be involved in the care of this patient. - Home Medications: Home Medications Medication Instructions Recorded Confirmed atorvastatin [Lipitor] 40 mg PO DAILY 11/09/18 11/09/18 glyburide 5 mg PO QAM 11/09/18 11/09/18 lisinopril [Zestril] 20 mg PO DAILY 11/09/18 11/09/18 metformin [Glucophage] 1,000 mg PO BID 11/09/18 11/09/18 New Rx's Medication Instructions Recorded aspirin [Ecotrin Low Strength] 81 mg PO QAM 30 Days #30 tab 11/11/18 clopidogrel 75 mg PO QAM 30 Days #30 tab 11/11/18
== END 2018-11-11 15:04 | disposition home or self-care (01) ==
LOC: ED 15:27 → 2W 15:27

== ENCOUNTER 2022-06-02 21:21 | Observation (INO) ==
[2022-06-02 21:52] LABS: Basophils # (auto) 0.04 K/uL (0-0.2); Basophils % (auto) 0.3 %; Eosinophils # (auto) 0.26 K/uL (0-0.50); Eosinophils % (auto) 2.2 %; Hemoglobin 13.8 g/dl (14.0-18.0); Immature Granulocytes # (auto) 0.04 K/uL (0.00-0.02); Immature Granulocytes % (auto) 0.3 %; Lymphocytes # (auto) 2.96 K/uL (1.2-3.4); Lymphocytes % (auto) 24.6 %; Mean Corpuscular Hemoglobin 28.1 pg (25.0-34.0); Mean Corpuscular Hgb Conc 35.4 g/dL (32.0-36.0); Mean Corpuscular Volume 79.4 fL (80.0-100.0); Mean Platelet Volume 10.8 fL (9.4-12.4); Monocytes # (auto) 0.79 K/uL (0.24-0.82); Monocytes % (auto) 6.6 %; Neutrophils # (auto) 7.93 K/uL (1.4-6.5); Platelet Count 277 K/uL (130-400); RDW Coefficient of Variation 13.1 % (11.5-14.5); RDW Standard Deviation 37.1 fL (36.4-46.3); Red Blood Count 4.91 M/uL (4.63-6.08); White Blood Count 12.02 K/ul (4.8-10.8)
[2022-06-02 22:20] LABS: Albumin Globulin Ratio 1.3 (0.9-2); Albumin Level 3.9 gm/dl (3.4-5.0); BUN Creatinine Ratio 13.9 (10-20); Bilirubin,Total 0.7 mg/dl (0.2-1.0); Calcium 9.1 mg/dl (8.5-10.1); Creatinine Clr Calc Pharmacy 67.4 ml/min; Est GFR (African American) 73.3 ml/min; Est GFR (Non-African American) 63.2 ml/min; Potassium 4.2 mmol/L (3.5-5.1); Total Protein 6.9 gm/dl (6.0-8.3)
[2022-06-02] MEDS ORDERED: SODIUM CHLORIDE 0.9% 1000ML 1,000 ML IV ONE (22:47)
[2022-06-02] MEDS ORDERED: PANTOprazole 80 MG in DEXTROSE 5% 100 ML IV STA (22:47)
[2022-06-02] MEDS ORDERED: FAMOTIDINE 20MG IV PUSH 20 MG/5 ML SYR IV STA (22:48)
[2022-06-02 23:07] LABS: Appearance Urine Clear (Clear); Bacteria Urine Automated Negative (Negative); Blood Urine Negative (Negative); Color Urine Dark Yellow; Epithelial Cell Urine Auto >30 /lpf (0-5); Glucose Urine UA 3+ (Negative); Ketones Urine 1+ (Negative); Leukocyte Esterase Urine Negative (Negative); Nitrite Urine Negative (Negative); Protein Urine 2+ (Negative); RBC Urine Automated 0-4 /hpf (0-4); Urobilinogen Urine Negative (Negative)
[2022-06-02 23:10] LABS: Bilirubin Urine 1+ (Negative)
--- NOTE | 2022-06-02 23:16 | Emergency Department Note ---
Impression & Plan Rectal bleeding, Diverticulitis, Anemia, Leukocytosis ED Provider Note NAME: JERO MEDINA SR AGE: 71 SEX: M : 1950 ARRIVES VIA: Walk-In INFORMANT: [Patient] ED PROVIDER(S): [Mathew Martinez MD] CHIEF COMPLAINT: Diarrhea, bloody stool HISTORY OF PRESENT ILLNESS: The patient is a 71-year-old male who presents to the ER with about 6 hours of dark red rectal bleeding. He feels like he has to have a bowel movement but only blood comes out. He has no pain. There has been no fever, no cough or congestion. No nausea or vomiting. He has had no chest discomfort and is not short of breath. No syncope or weakness. The patient takes aspirin for stroke prevention, no other blood thinning agents. No history of previous GI bleeding. REVIEW OF SYSTEMS: See HPI for pertinent positives and negatives. A total of ten systems were r eviewed and were otherwise negative. PMHx/PSHx: See Below SOCIAL HISTORY: See Below. PHYSICAL EXAM: GENERAL: Patient is in no acute distress. HEENT: No acute trauma, normocephalic atraumatic, mucous membranes moist, no nasal congestion, no scleral icterus. NECK: No stridor, no adenopathy, no meningismus, trachea is midline. LUNGS: Clear to auscultation bilaterally, no wheeze, no rhonchi, breath sounds equal. HEART: No murmurs, regular rhythm with occasional extra beats, normal rate. ABDOMEN: Soft, nontender, bowel sounds positive, no peritonitis. EXTREMITIES: No cyanosis or edema, full range of motion of all the joints without pain or difficulty, no signs for acute trauma. NEUROLOGIC: Oriented x 3, no acute motor or sensory deficits, no focal weakness. SKIN: No rash, no jaundice, no diaphoresis. Rectal: Dark red blood noted, heme positive. DIFFERENTIAL DIAGNOSIS: Diverticulosis, AVM, coagulopathy, colitis, inflammatory bowel disease, malignancy, Ruma-Wang tear, esophagitis, peptic ulcer disease, variceal bleed, gastritis, epistaxis, fissure, hemorrhoids, as well as other pathologies. EMERGENCY DEPARTMENT COURSE/PROCEDURES: ECG: Indication was GI bleeding. The ECG shows a sinus rhythm with PACs. There is a rate of 82. There is no ST elevation, no PVCs. The QTc is 446. Continuous Cardiac Monitoring: An order was placed for continuous cardiac monitoring. The monitor shows a rate of 73 with sinus rhythm with PACs. MEDICAL DECISION MAKING: There is a mild leukocytosis, this could be consistent with infection. There is a very subtle anemia seen. The patient's hemoglobin has dropped about one-point from previous testing. There is a normal platelet count. Sodium slightly low but not in need of emergent correction. No renal failure. Glucose mildly elevated. No concerning liver enzyme elevation. No evidence for pancreatitis. Urinalysis shows some glucose, no infection. COVID, influenza and RSV test returned negative. On exam, the patient did have dark red rectal bleeding. He did not have any abdominal pain. CT imaging of the abdomen/pelvis shows potential diverticulitis. Patient was given IV Unasyn for the potential diverticulitis. He received IV saline, 1 L. He was given IV Pepcid and IV Protonix. The patient is doing well, he is resting comfortably. He does require a hospital stay for further work-up and care. I did speak with the patient and c ase management. The on-call hospitalist has been consulted. Past Med/Surg History Medical History Acute CVA (cerebrovascular accident) Diabetes Diabetes mellitus, type II Hyperlipidemia Hypertension Hypertensive urgency Stroke-like symptoms Stroke-like symptoms Surgical History No pertinent past surgical history Family History Mother Stroke Diabetes Brother Diabetes Father Cancer Social History Smoking Status: Never smoker Tobacco Type: Cigarettes Age Started Using Tobacco: 18; Age Quit Using Tobacco: 44; packs per day: 2.5; Years Smoked: 26; Cigarettes Per Day: 45; Number of Years Since Quit: 25; Second Hand Exposure: Yes; Hx Alcohol Use: Yes Alcohol type: beer and hard liquor Alcohol type Comment: Ar Ervin Alcohol Intake Frequency: 2-4 x/Month Hx Substance Use: No Preferred Language: Armenian Communication Ability: Effective Visual Impairment: No Limitations Hearing Ability: Hard of Hearing Vending Route Driver Required: No Beliefs That Will Affect Care: None marital status: Current Living Situation: Spouse current occupational status: retired current occupation: Retired from [employer] How many Children do You have: 3 Feels Safe at Home: Yes Childhood Exposure to Second-Hand Smoke: Yes caffeine: Yes (coffee two cups daily) during the past year weight has: remained stable Dental Care, Regularly: Yes Physical Activity Frequency: 3-4 Times per Week Physical Activity Frequency Comment: yard work Seatbelt Use: always Sunscreen Use: Yes (intermittently, while at the beach) Assistive Devices: None, Denture - Lower, Glasses and Hearing Aid - Right Allergies Allergies Allergy/AdvReac Type Severity Reaction Status Date / Time No Known Allergies Allergy NONE Unverified 10/28/21 11:25 Home Meds Home Medications Medication Instructions Recorded Confirmed atorvastatin 40 mg tablet (Lipitor) 40 mg PO DAILY 11/09/18 10/28/21 glyburide 5 mg tablet 5 mg PO QAM 11/09/18 10/28/21 lisinopril 20 mg tablet (Zestril) 20 mg PO DAILY 11/09/18 10/28/21 metformin 500 mg tablet 1,000 mg PO BID 11/09/18 10/28/21 (Glucophage) aspirin 81 mg tablet,delayed 81 mg PO DAILY 02/20/20 10/28/21 release Previous Rx's Medication Instructions Recorded ciprofloxacin HCl 500 mg tablet 500 mg PO BID #14 tabs 03/18/20 finasteride 5 mg tablet 5 mg PO DAILY #90 tabs 04/05/22 Results & Data (ED) Vital Signs Vital Signs - 24 hr 06/02/22 21:27 06/02/22 22:51 06/02/22 22:52 Temperature 36.8 C 36.7 C Temperature Source Temporal Artery Scan Oral Pulse Rate 94 H 74 Pulse Rate [Right Finger] 73 Respiratory Rate 20 20 22 Respiratory Effort / Characteristics Non-Labored Spontaneous Respiratory Depth Normal Respiratory Pattern Regular Blood Pressure 128/77 Blood Pressure [Right Arm] 159/90 H Blood Pressure Mean 94 Blood Pressure Mean [Right Arm] 113 Blood Pressure Position Sitting Blood Pressure Position [Right Arm] Lying Pulse Oximetry 97 96 96 Oxygen Delivery Method Room Air Room Air Room Air Sepsis Recent Fever Within 48 Hours No Sepsis New/Unexplained Change in Mental Status N/A Sepsis Action Taken by Nursing No Action Required Home Medications Current Medication List: was personally reviewed by me Laboratory Data Attestation: I reviewed the patient's lab results. Result diagrams: 06/02/22 21:38 06/02/22 21:38 Lab Results 06/02/22 06/02/22 06/02/22 Range/Units 21:30 21:38 21:38 WBC 12.02 H (4.8-10.8) K/ul RBC 4.91 (4.63-6.08) M/uL Hgb 13.8 L (14.0-18.0) g/dl Hct 39.0 L (40.1-51.0) % MCV 79.4 L (80.0-100.0) fL MCH 28.1 (25.0-34.0) pg MCHC 35.4 (32.0-36.0) g/dL RDW Std Deviation 37.1 (36.4-46.3) fL RDW Coeff of Delta 13.1 (11.5-14.5) % Plt Count 277 (130-400) K/uL MPV 10.8 (9.4-12.4) fL Immature Gran % (Auto) 0.3 % Neut % (Auto) 66.0 % Lymph % (Auto) 24.6 % Isabela % (Auto) 6.6 % Eos % (Auto) 2.2 % Baso % (Auto) 0.3 % Neut # (Auto) 7.93 H (1.4-6.5) K/uL Lymph # (Auto) 2.96 (1.2-3.4) K/uL Isabela # (Auto) 0.79 (0.24-0.82) K/uL Eos # (Auto) 0.26 (0-0.50) K/uL Baso # (Auto) 0.04 (0-0.2) K/uL Immature Gran # (Auto) 0.04 H (0.00-0.02) K/uL Sodium 135 L (136-145) mmol/L Potassium 4.2 (3.5-5.1) mmol/L Chloride 101 (98-107) mmol/L Carbon Dioxide 26 (21-32) mmol/L Anion Gap 8 (3-11) BUN 16 (6-23) mg/dl Creatinine 1.15 (0.6-1.4) mg/dl Est Cr Clr Drug Dosing 67.4 ml/min Est GFR ( Amer) 73.3 ml/min Est GFR (Non-Af Amer) 63.2 ml/min BUN/Creatinine Ratio 13.9 (10-20) Glucose 240 H (70-99(Fasting)) mg/dl POC Glucose 228 H (70-99) mg/dl Calcium 9.1 (8.5-10.1) mg/dl Magnesium (1.7-2.4) mg/dl Total Bilirubin 0.7 (0.2-1.0) mg/dl AST 10 L (13-39) U/L ALT 10 (7-52) U/L Alkaline Phosphatase 78 (34-104) U/L Total Protein 6.9 (6.0-8.3) gm/dl Albumin 3.9 (3.4-5.0) gm/dl Globulin 3.0 (2.5-4.0) gm/dl Albumin/Globulin Ratio 1.3 (0.9-2) Lipase 10 L (11-82) U/L Urine Color Urine Appearance (Clear) Urine pH (4.5-7.5) Ur Specific [place] (1.000-1.030) Urine Protein (Negative) Urine Glucose (UA) (Negative) Urine Ketones (Negative) Urine Blood (Negative) Urine Nitrite (Negative) Urine Bilirubin (Negative) Urine Urobilinogen (Negative) Ur Leukocyte Esterase (Negative) Urine WBC (Auto) (0-5) /hpf Urine RBC (Auto) (0-4) /hpf U Hyaline Cast (Auto) (0-5) /lpf U Epithel Cells (Auto) (0-5) /lpf Urine Bacteria (Auto) (Negative) SARS-CoV-2 (PCR) (Negative) Influenza Type A (PCR) (Neg) Influenza Type B (PCR) (Neg) RSV (RT-PCR) (Neg) 06/02/22 06/02/22 06/02/22 Range/Units 21:38 22:50 22:54 WBC (4.8-10.8) K/ul RBC (4.63-6.08) M/uL Hgb (14.0-18.0) g/dl Hct (40.1-51.0) % MCV (80.0-100.0) fL MCH (25.0-34.0) pg MCHC (32.0-36.0) g/dL RDW Std Deviation (36.4-46.3) fL RDW Coeff of Delta (11.5-14.5) % Plt Count (130-400) K/uL MPV (9.4-12.4) fL Immature Gran % (Auto) % Neut % (Auto) % Lymph % (Auto) % Isabela % (Auto) % Eos % (Auto) % Baso % (Auto) % Neut # (Auto) (1.4-6.5) K/uL Lymph # (Auto) (1.2-3.4) K/uL Isabela # (Auto) (0.24-0.82) K/uL Eos # (Auto) (0-0.50) K/uL Baso # (Auto) (0-0.2) K/uL Immature Gran # (Auto) (0.00-0.02) K/uL Sodium (136-145) mmol/L Potassium (3.5-5.1) mmol/L Chloride (98-107) mmol/L Carbon Dioxide (21-32) mmol/L Anion Gap (3-11) BUN (6-23) mg/dl Creatinine (0.6-1.4) mg/dl Est Cr Clr Drug Dosing ml/min Est GFR ( Amer) ml/min Est GFR (Non-Af Amer) ml/min BUN/Creatinine Ratio (10-20) Glucose (70-99(Fasting)) mg/dl POC Glucose (70-99) mg/dl Calcium (8.5-10.1) mg/dl Magnesium 1.7 (1.7-2.4) mg/dl Total Bilirubin (0.2-1.0) mg/dl AST (13-39) U/L ALT (7-52) U/L Alkaline Phosphatase (34-104) U/L Total Protein (6.0-8.3) gm/dl Albumin (3.4-5.0) gm/dl Globulin (2.5-4.0) gm/dl Albumin/Globulin Ratio (0.9-2) Lipase (11-82) U/L Urine Color Dark Yellow Urine Appearance Clear (Clear) Urine pH 5.0 (4.5-7.5) Ur Specific [place] 1.030 (1.000-1.030) Urine Protein 2+ H (Negative) Urine Glucose (UA) 3+ H (Negative) Urine Ketones 1+ H (Negative) Urine Blood Negative (Negative) Urine Nitrite Negative (Negative) Urine Bilirubin 1+ H (Negative) Urine Urobilinogen Negative (Negative) Ur Leukocyte Esterase Negative (Negative) Urine WBC (Auto) 1-5 (0-5) /hpf Urine RBC (Auto) 0-4 (0-4) /hpf U Hyaline Cast (Auto) 5-10 H (0-5) /lpf U Epithel Cells (Auto) >30 H (0-5) /lpf Urine Bacteria (Auto) Negative (Negative) SARS-CoV-2 (PCR) NEGATIVE (Negative) Influenza Type A (PCR) Negative (Neg) Influenza Type B (PCR) Negative (Neg) RSV (RT-PCR) Negative (Neg) Administered Medications Discontinued Medications Sodium Chloride (Nss 1000ml) 1,000 mls @ 999 mls/hr IV .Q1H1M ONE Stop: 06/02/22 23:47 Last Admin: 06/02/22 23:31 Dose: 999 mls/hr Documented By: MARKY Pantoprazole Sodium 80 mg/ (Dextrose) 100 mls @ 400 mls/hr IV ONE STA Stop: 06/02/22 23:01 Last Admin: 06/02/22 23:28 Dose: 400 mls/hr Documented By: MARKY Famotidine (Pepcid 20mg Iv Push) 20 mg in 5 mls @ 2.5 mls/min IV NOW STA Stop: 06/02/22 22:49 Last Admin: 06/02/22 23:29 Dose: 2.5 mls/min Documented By: MARKY Ioversol (Ioversol 350 Mg 100ml Prefilled Syringe) 94 ml IV ONCE ONE Stop: 06/02/22 23:22 Last Admin: 06/02/22 23:21 Dose: 94 ml Documented By: CHUCHO Imaging Data Radiologist's Impression: Abdominal and pelvis CT with IV contrast: Pericolonic fat stranding involving the sigmoid region with extensive diverticuli. Diverticulitis is favored over colitis. Right inguinal fat-containing hernia. No bowel obstruction. Potential cyst or hemangioma noted in the spleen. Normal appendix. Discharge Plan Visit Data Chief Complaint: Diarrhea Stated Complaint: BLOOD IN STOOL, DIARRHEA ED Provider: Mathew Martinez Discharge Problem: Rectal bleeding, Diverticulitis, Anemia, Leukocytosis Patient Disposition: Admitted As Inpatient Condition: Fair Forms Stand Alone Forms: My [facility] Prescriptions Prescriptions: No Action finasteride 5 mg tablet 5 mg PO DAILY Qty: 90 1RF aspirin 81 mg tablet,delayed release (DR/EC) 81 mg PO DAILY ciprofloxacin HCl 500 mg tablet 500 mg PO BID Qty: 14 0RF atorvastatin [Lipitor] 40 mg tablet 40 mg PO DAILY metformin [Glucophage] 500 mg tablet 1,000 mg PO BID glyburide 5 mg tablet 5 mg PO QAM lisinopril [Zestril] 20 mg tablet 20 mg PO DAILY Referrals Referrals: Fabian Cox DO [Primary Care Provider] -
[2022-06-02] MEDS ORDERED: IOVERSOL 350 MG 100mL Prefilled Syringe IV ONE (23:21)
[2022-06-02 23:43] LABS: Influenza A virus by PCR Negative (Neg); Influenza B virus by PCR Negative (Neg); RSV by PCR Negative (Neg); SARS CoV2 RNA(COVID-19) InHosp NEGATIVE (Negative)
[2022-06-02] MEDS ORDERED: AMPICILLIN/SULBACTAM SOD 3,000 MG in 0.9 % SODIUM CHLORIDE 100 ML IV STA (23:49)
--- NOTE | 2022-06-03 03:21 | History and Physical Report ---
DATE OF ADMISSION: 06/03/2022. CHIEF COMPLAINT: Rectal bleed. HISTORY OF PRESENT ILLNESS: A 71-year-old male with past medical history significant for type 2 diabetes, hyperlipidemia, hypertension, history of CVA, history of prostate cancer, history of colon polyps, who presents with blood per rectum since 6:00 p.m. several episodes, this is the first time it has happened. He is on aspirin. No abdominal pain. No nausea or vomiting. Normal bladder movements. No fever, no chills, no chest pain, no shortness of breath, no cough, no headache, no blurred visions, no earache, no runny nose, no sore throat. Currently, resting comfortably and hemodynamically stable. ALLERGIES: JANUVIA. PAST MEDICAL HISTORY: As mentioned above. PAST SURGICAL HISTORY: Colonoscopy with lesion removal. MEDICATIONS: The patient is on aspirin 81 mg p.o. daily, atorvastatin 40 mg p.o. daily, finasteride 5 mg p.o. daily, glipizide 10 mg p.o. daily, lisinopril 40 mg p.o. daily, metformin 1000 mg p.o. b.i.d. FAMILY HISTORY: Significant for paternal grandfather had cancer, mother had diabetes, father had hypertension, mother had stroke. SOCIAL HISTORY: , former smoker, quit in 1991, smoked 1 pack a day for 30 years. Alcohol, rarely. No drug use. REVIEW OF SYSTEMS: As per HPI. Rest of the review of systems is negative. PHYSICAL EXAMINATION: GENERAL: The patient is of moderate build, not in acute distress. VITAL SIGNS: Temperature 36.7, pulse 70, respiratory rate 16, blood pressure 146/93, oxygen 94% on room air. HEENT: Pupils equal, round and reactive to light. Oral mucosa moist. NECK: No JVD or neck masses. CARDIOVASCULAR: S1 and S2 heard. Regular rate and rhythm. No murmur, no gallop. RESPIRATORY SYSTEM: Normal AP diameter. No accessory muscle use. No wheezing, no crackles. ABDOMEN: Soft, bowel sounds present, nontender, no distention. CENTRAL NERVOUS SYSTEM: Cranial nerves II-XII grossly intact, nonfocal. EXTREMITIES: No edema, no erythema. LABORATORY DATA: WBC 12.02, hemoglobin 13.8, hematocrit 39, platelets 277. Sodium 135, potassium 4.2, chloride 101, bicarbonate 26, BUN 16, creatinine 1.1, serum glucose 240, calcium 9.1, magnesium 1.7, total bilirubin 0.7, AST 10, ALT 10, alkaline phosphatase 78. Lipase 10. Urinalysis negative. SARS-CoV-2 PCR negative. Influenza A and B PCR negative. RSV PCR negative. IMAGING DATA: CT of abdomen and pelvis preliminary report showed diverticulitis. EKG: Sinus rhythm with PACs at a rate of 82, no acute ST changes seen. ASSESSMENT AND PLAN: This is a 71-year-old male who presents with rectal bleed. 1. Bright red blood per rectum. Possible diverticulitis on preliminary report of the CAT scan, hemoglobin is okay at 13.8. Blood consent obtained. We will follow H and H q. 6 hours. Keep him n.p.o., IV fluids, IV Protonix 40 mg b.i.d., IV Zosyn for possible diverticulitis. Follow the final report of CAT scan. Consult GI in the a.m. Closely monitor in the [employer] tele. Hold aspirin. 2. History of hyperlipidemia. Continue statin. 3. History of cerebrovascular accident. Holding the aspirin. Continue statin. 4. History of diabetes. Hold glipizide and metformin. Placed on Lantus 5 units daily and insulin sliding scale. Currently n.p.o. Follow the blood sugars. 5. Deep venous thrombosis prophylaxis. Sequential compression devices for now. DISPOSITION: Closely monitor in the [employer] tele. PT/OT prior to discharge. Social service to help with discharge planning. Job ID: [id number] [facility]
[2022-06-03] MEDS ORDERED: NITROGLYCERIN SL 0.4 MG/TAB TAB SL PRN (04:23)
[2022-06-03] MEDS ORDERED: ACETAMINOPHEN 325 MG TAB PO PRN (04:23)
[2022-06-03] MEDS ORDERED: ONDANSETRON INJ 2 MG/ML 2 ML VIAL IV PRN (04:23)
[2022-06-03] MEDS ORDERED: GLUCOSE 40% GEL 15 GM TUBE PO PRN (04:45)
[2022-06-03] MEDS ORDERED: GLUCOSE 10 TAB/TUBE PO PRN (04:45)
[2022-06-03] MEDS ORDERED: GLUCAGON FOR INJ 1 MG VIAL IM PRN (04:45)
[2022-06-03] MEDS ORDERED: CARBOHYDRATES FOR HYPOGLYCEMIA PO PRN (04:45)
[2022-06-03] MEDS ORDERED: DEXTROSE 50% 50 ML SYRINGE IV PRN (04:45)
[2022-06-03] MEDS: SODIUM CHLORIDE 0.9% 1000ML 1,000 ML IV SCH ×2 (05:34→12:46)
[2022-06-03] MEDS: INSULIN ASPART PER UNIT SC SCH ×4 (05:34→19:58)
[2022-06-03 06:00] LABS: Basophils # (auto) 0.04 K/uL (0-0.2); Basophils % (auto) 0.5 %; Eosinophils # (auto) 0.11 K/uL (0-0.50); Eosinophils % (auto) 1.3 %; Hematocrit (blood only) 33.6 % (40.1-51.0); Hemoglobin 11.7 g/dl (14.0-18.0); Immature Granulocytes # (auto) 0.04 K/uL (0.00-0.02); Immature Granulocytes % (auto) 0.5 %; Lymphocytes # (auto) 2.11 K/uL (1.2-3.4); Lymphocytes % (auto) 25.2 %; Mean Corpuscular Hemoglobin 28.1 pg (25.0-34.0); Mean Corpuscular Hgb Conc 34.8 g/dL (32.0-36.0); Mean Corpuscular Volume 80.8 fL (80.0-100.0); Monocytes # (auto) 0.61 K/uL (0.24-0.82); Monocytes % (auto) 7.3 %; Neutrophils # (auto) 5.45 K/uL (1.4-6.5); Neutrophils % (auto) 65.2 %; Platelet Count 200 K/uL (130-400); RDW Coefficient of Variation 13.1 % (11.5-14.5); RDW Standard Deviation 37.6 fL (36.4-46.3); Red Blood Count 4.16 M/uL (4.63-6.08); White Blood Count 8.36 K/ul (4.8-10.8)
[2022-06-03] MEDS ORDERED: PIPERACILLIN/TAZOBACTAM 3.375 GM in DEXTROSE 5% 100 ML IV SCH (06:00)
[2022-06-03 06:24] LABS: Calcium 8.4 mg/dl (8.5-10.1); Creatinine Clr Calc Pharmacy 72.5 ml/min; Magnesium 1.8 mg/dl (1.7-2.4); Potassium 3.9 mmol/L (3.5-5.1)
[2022-06-03 07:21] LABS: Estimated Average Glucose 206 mg/dl; Hemoglobin A1C 8.8 % (4.5-5.6)
[2022-06-03] MEDS: ATORVASTATIN 40 MG TAB PO SCH (07:28)
[2022-06-03] MEDS: lisinopril 40 MG TAB PO SCH (07:28)
[2022-06-03] MEDS: FINASTERIDE 5 MG TAB PO SCH (07:38)
[2022-06-03] MEDS: LANTUS PER UNIT CHARGE SQ SCH (08:05)
[2022-06-03] MEDS ORDERED: PANTOprazole 40 MG in SYRINGE 0 ML IV SCH (09:00)
--- NOTE | 2022-06-03 09:20 | CT Scan Report ---
CT OF THE ABDOMEN AND PELVIS WITH CONTRAST CLINICAL HISTORY: Bloody stool. COMPARISON STUDY: Prostate MRI March 02, 2020 TECHNIQUE: Following IV administration of 94 mL of Optiray, axial images of the abdomen and pelvis we re obtained from the lung bases to the proximal femurs. Images were reviewed in the axial, sagittal, and coronal planes. IV contrast was administered without complication. Automated exposure control wa s utilized for the study. A dose lowering technique was utilized adhering to the principles of ALARA . CT DOSE: 582.39 mGy.cm FINDINGS: Lung bases are unremarkable. No pneumatosis, free air or portal venous gas is present. A fe w subcentimeter hepatic lesions likely reflect cysts. Adrenal glands and pancreas are unremarkable. W ater attenuation lesion within the lower pole the left kidney reflects a cyst. 1.4 cm lesion arising from the lower pole of the right kidney measures above water attenuation. A few subcentimeter renal l esions are too small to characterize. There is a 3.5 cm hypodense splenic lesion. This contains an en hancing septation and several calcifications. There is no evidence for a bowel obstruction. Extensive colonic diverticulosis is noted. Subtle inflammation associated with a diverticulum of the descendin g colon is noted on axial image 188 of 481. There is minimal inflammation adjacent to the proximal si gmoid colon as well. No free air or abscess is present. These findings favor acute diverticulitis. No lymphadenopathy is present. Prostate is enlarged, measuring 6.6 cm in transverse dimension. Fat-cont aining right inguinal hernia is noted. IMPRESSION: 1. Findings suggestive of mild acute diverticulitis of the mid descending colon and the proximal sigm oid colon as described above. No free air or abscess. Extensive colonic diverticulosis. 2. 3.5 cm splenic lesion, as described above. This is nonspecific although statistically benign. A fo llow-up CT in 6 months is recommended to ensure stability. 3. 1.4 cm hypodense lesion arising from the lower pole of the right kidney. This probably reflects a complex cyst however a small solid renal lesion could appear similar. This can be assessed on follow- up CT as well. ACT 112: Negative or not required by law. Electronically signed by: Cam Saha M.D. 06/03/2022 9:18 AM
[2022-06-03 11:12] LABS: Hematocrit (blood only) 29.4 % (40.1-51.0); Hemoglobin 10.5 g/dl (14.0-18.0)
--- NOTE | 2022-06-03 11:55 | Gastrointestinal Consultation ---
Date of Consultation June 03, 2022 Assessment & Plan (1) Diverticulitis: (2) Anemia: (3) Rectal bleeding: Pt is a 71 yo male seen for rectal bleeding wo abd pain, n/v, fever, chills. Noted to have L sided diverticulitis. He hasn't had rectal bleeding since over 12hrs. - CL diet, advance as tolerated - Monitor H/H and transfuse prn - Cipro/Flagyl IV antibx, can transition to PO upon DC - Protonix 40mg daily - OP colonoscopy eval in 4 to 6 week's time Supervising Physician Co-Signing Physician Notes I performed a history and physical examination of the patient today, including specifically on physical exam - soft abdomen. I have discussed the patient's management with the advanced practitioner. Please refer to the nurse practitioner's note for the documented findings and plan of care. Acute diverticulitis. No more rectal bleeding. IV ABx Colonoscopy as OP. Recall GI if needed. History of Present Illness Reason for Consultation: Rectal bleeding Requesting Physician: Dr. Tavo De La Paz Attending Physician: Dr. Xavier Roberson History of Present Illness Pt is a 71 yo male w PMHx of DM II, HLD, HTN, CVA, prostate ca, colon polyps, who presented to ED w c/o BRBPR started 6P overnight. Had a total of 3 episodes, none since 9:30PM. He denies associated fever, chills, CP, SOB, abd pain, n/v. He denies sick contact, travels,recent antibx exposure. Had drop in blood ct 13 ->[address] abd/pelvis w contrast showed acute diverticulitis of mid descending colon and proximal sigmoid colon wo air and abscess. Colonoscopy 2011 and 2012 - hemorrhoids, diverticulosis Allergies Allergy/AdvReac Type Severity Reaction Status Date / Time No Known Allergies Allergy NONE Unverified 10/28/21 11:25 Home Medications Medication Instructions Recorded Confirmed Type atorvastatin 40 mg tablet (Lipitor) 40 mg PO DAILY 11/09/18 10/28/21 History metformin 500 mg tablet 1,000 mg PO BID 11/09/18 10/28/21 History (Glucophage) aspirin 81 mg tablet,delayed 81 mg PO DAILY 02/20/20 10/28/21 History release finasteride 5 mg tablet 5 mg PO DAILY #90 tabs 04/05/22 Rx glipizide 10 mg tablet, extended 10 mg PO DAILY 06/03/22 06/03/22 History release 24 hr lisinopril 40 mg tablet 40 mg PO DAILY 06/03/22 06/03/22 History Patient History Medical History Acute CVA (cerebrovascular accident) Diabetes Diabetes mellitus, type II Hyperlipidemia Hypertension Hypertensive urgency Stroke-like symptoms Stroke-like symptoms Surgical History No pertinent past surgical history Family History Mother Stroke Diabetes Brother Diabetes Father Cancer Social History Smoking Status: Never smoker Tobacco Type: Cigarettes Age Started Using Tobacco: 18; Age Quit Using Tobacco: 44; packs per day: 2.5; Years Smoked: 26; Cigarettes Per Day: 45; Number of Years Since Quit: 25; Second Hand Exposure: Yes; Hx Alcohol Use: Yes Alcohol type: beer and hard liquor Alcohol type Comment: Ar Beam Alcohol Intake Frequency: 2-4 x/Month Hx Substance Use: No Preferred Language: Divehi Communication Ability: Effective Visual Impairment: No Limitations Hearing Ability: Hard of Hearing Forge Helper Required: No Beliefs That Will Affect Care: None marital status: Current Living Situation: Spouse current occupational status: retired 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 [employer] How many Children do You have: 3 Feels Safe at Home: Yes Childhood Exposure to Second-Hand Smoke: Yes caffeine: Yes (coffee two cups daily) during the past year weight has: remained stable Dental Care, Regularly: Yes Physical Activity Frequency: 3-4 Times per Week Physical Activity Frequency Comment: yard work Seatbelt Use: always Sunscreen Use: Yes (intermittently, while at the beach) Assistive Devices: None Review of Systems Review of Systems: All systems reviewed & are unremarkable except as noted in HPI & below Physical Exam Constitutional: WD/WN, vitals as above well groomed, cooperative and comfortable Eyes: PERRL, conjunctivae normal, anicteric sclerae ENMT: external ear and nose normal, oropharynx normal Respiratory: normal respiratory effort, lungs clear to auscultation Cardiovascular: RRR, no murmur, no edema Gastrointestinal (Abdomen): normal bowel sounds, soft, nontender, no hepatosplenomegaly Skin: no rashes, warm and dry no jaundice Psychiatric: A+Ox3, euthymic affect Lymphatic: no lymphedema Results & Data ([facility]) Vital Signs (Past 12 Hours) Vital Signs Temp Pulse Resp BP BP Pulse Ox O2 Del Method 06/03/22 10:57 36.9 C 58 L 16 156/81 H 95 Room Air 06/03/22 07:47 36.5 C 74 16 159/84 H 95 Room Air 06/03/22 05:51 Room Air 06/03/22 05:51 36.4 C L 119 H 16 172/92 H 98 Room Air 06/03/22 04:04 71 18 139/92 98 Room Air 06/03/22 00:10 70 16 146/93 H 94 Room Air (1) Anemia Anemia type: unspecified type Qualified Code(s): D64.9 - Anemia, unspecified
[2022-06-03] MEDS: PANTOprazole 40 MG TAB PO SCH (12:38)
[2022-06-03] MEDS: CIPROFLOXACIN / D5W 400 MG/200 ML BAG IV SCH (12:38)
[2022-06-03] MEDS: metroNIDAZOLE 500 MG/100 ML BAG IV SCH ×2 (12:39→19:39)
[2022-06-03] MEDS ORDERED: Nursing to Pharmacy Communication SCH (13:45)
--- NOTE | 2022-06-03 15:12 | Communication Note ---
Date of Service: June 03, 2022 Patient seen and examined at bedside. Is comfortably lying down on the bed; not in any distress. He reports 1 episode of bowel movement overnight with blood. Abdomen is soft, nontender. His hemoglobin has trended down from 13.8 on admission to 10.5 GI recommended advancing diet as tolerated. Monitoring H&H and transfuse as needed. Patient is switched over to Cipro and Flagyl. Outpatient colonoscopy in 4 to 6 weeks time.
[2022-06-03 19:43] LABS: Hematocrit (blood only) 29.4 % (40.1-51.0); Hemoglobin 10.1 g/dl (14.0-18.0)
--- NOTE | 2022-06-03 21:20 | Electrocardiogram Report ---
Test Reason : Blood Pressure : / mmHG Vent. Rate : 082 BPM Atrial Rate : 082 BPM P-R Int : 148 ms QRS Dur : 080 ms QT Int : 382 ms P-R-T Axes : 035 041 081 degrees QTc Int : 446 ms Poor data quality, interpretation may be adversely affected Sinus rhythm with Premature atrial complexes Anterior infarct , age undetermined Abnormal ECG When compared with ECG of 09-NOV-2018 15:38, Premature atrial complexes are now Present Confirmed by Yifan Huitron ([id number]) on 06/03/2022 9:20:19 PM Referred By: REFERRED SELF Confirmed By:Yifan Huitron
[2022-06-04] MEDS: CIPROFLOXACIN / D5W 400 MG/200 ML BAG IV SCH ×2 (00:20→12:01)
[2022-06-04 01:03] LABS: Hematocrit (blood only) 28.5 % (40.1-51.0); Hemoglobin 9.7 g/dl (14.0-18.0)
[2022-06-04] MEDS: metroNIDAZOLE 500 MG/100 ML BAG IV SCH ×2 (04:07→12:01)
[2022-06-04 07:31] LABS: Hematocrit (blood only) 28.9 % (40.1-51.0); Hemoglobin 9.9 g/dl (14.0-18.0)
[2022-06-04] MEDS: ATORVASTATIN 40 MG TAB PO SCH (07:46)
[2022-06-04] MEDS: lisinopril 40 MG TAB PO SCH (07:47)
[2022-06-04] MEDS: PANTOprazole 40 MG TAB PO SCH (07:47)
[2022-06-04] MEDS: FINASTERIDE 5 MG TAB PO SCH (07:47)
[2022-06-04] MEDS: INSULIN ASPART PER UNIT SC SCH ×2 (08:15→11:56)
[2022-06-04] MEDS: LANTUS PER UNIT CHARGE SQ SCH (08:15)
[2022-06-04 12:57] LABS: Hemoglobin 10.3 g/dl (14.0-18.0)
--- NOTE | 2022-06-04 14:28 | Communication Note ---
Date of Service: June 04, 2022 By CMS guidelines, a determination that the admission or continued stay is not medically necessary has been made by a member of the UR committee and a ph ysician for this hospital stay, therefore a Code 44 will be completed and the Inpatient admission will be changed to outpatient. Brennan He MD Member, Utilization Review Committee
--- NOTE | 2022-06-04 15:10 | Discharge Summary ---
Date of Service June 04, 2022 Admission HPI Per Admitting Provider A 71-year-old male with past medical history significant for type 2 diabetes, hyperlipidemia, hypertension, history of CVA, history of prostate cancer, history of colon polyps, who presents with blood per rectum since 6:00 p.m. several episodes, this is the first time it has happened. He is on aspirin. No abdominal pain. No nausea or vomiting. Normal bladder movements. No fever, no chills, no chest pain, no shortness of breath, no cough, no headache, no blurred visions, no earache, no runny nose, no sore throat. Currently, resting comfortably and hemodynamically stable. Admission Exam Per Admitting Provider GENERAL: The patient is of moderate build, not in acute distress. VITAL SIGNS: Temperature 36.7, pulse 70, respiratory rate 16, blood pressure 146/93, oxygen 94% on room air. HEENT: Pupils equal, round and reactive to light. Oral mucosa moist. NECK: No JVD or neck masses. CARDIOVASCULAR: S1 and S2 heard. Regular rate and rhythm. No murmur, no gallop. RESPIRATORY SYSTEM: Normal AP diameter. No accessory muscle use. No wheezing, no crackles. ABDOMEN: Soft, bowel sounds present, nontender, no distention. CENTRAL NERVOUS SYSTEM: Cranial nerves II-XII grossly intact, nonfocal. EXTREMITIES: No edema, no erythema. Principal Diagnosis Acute diverticulitis Bright red blood per rectum Discharge Exam GENERAL: The patient is of moderate build, not in acute distress. VITAL SIGNS: Temperature 36.7, pulse 70, respiratory rate 16, blood pressure 146/93, oxygen 94% on room air. HEENT: Pupils equal, round and reactive to light. Oral mucosa moist. NECK: No JVD or neck masses. CARDIOVASCULAR: S1 and S2 heard. Regular rate and rhythm. No murmur, no gallop. RESPIRATORY SYSTEM: Normal AP diameter. No accessory muscle use. No wheezing, no crackles. ABDOMEN: Soft, bowel sounds present, nontender, no distention. CENTRAL NERVOUS SYSTEM: Cranial nerves II-XII grossly intact, nonfocal. EXTREMITIES: No edema, no erythema. Discharge Data Allergies Allergy/AdvReac Type Severity Reaction Status Date / Time No Known Allergies Allergy NONE Unverified 10/28/21 11:25 Consultations 06/02/22 23:54 ED Decision to Admit Stat 06/03/22 08:00 Consult Gastroenterology Routine Ordered Studies 06/02/22 22:47 CT Abd and Pelvis [CT abd pelvis IV con only] Stat Hospital Course (1) Diverticulitis: (2) Rectal bleeding: (3) Acute blood loss anemia: Plan Patient is a 72-year-old male with past medical history of hyperlipidemia, history of CVA, type 2 diabetes presented to the ED with bright red blood per rectum. Patient underwent CT abdomen pelvis which was concerning for diverticulitis. Patient initial hemoglobin was 13.8. Patient was admitted to telemetry floor. He was started on IV antibiotics and a hemoglobin was measured periodically. Patient hemoglobin down trended to 10 and it is stabilized throughout the admission. He did not have any more episodes of bleeding. He was started on clear liquid diet and a diet was advanced as tolerated. GI was consulted; recommended antibiotics and outpatient follow-up for colonoscopy in 4 to 6 weeks. Patient was discharged home with 7-day course of ciprofloxacin and metronidazole. He was asked to hold off his aspirin for 7 more days. Dietary instruction were given to him as well. He was also instructed to follow-up with GI for colonoscopy as outpatient. Discharge instructions were discussed with the at bedside. Total Time Total Time Spent Total Time Spent (In Minutes): 35 Total Time Includes: Examination of the Patient, Discharge Planning, Medication Reconciliation, Communication With Other Providers and Other Discharge Plan Discharge Items Patient Disposition: Home - Self-Care Reason For Visit: RECTAL BLEED Discharge Diagnosis: Acute diverticulitis Condition on Discharge: Fair Activity: Resume your previous activity Non-emergency contact: Primary Care Provider Call non-emergency contact if: you have any medication questions and your symptoms worsen Follow-up/Referrals: Fabian Cxo, [Primary Care Provider] - Diet: Other - See Diet Comment Addtl Attending Provider Instructions: Please start low-fiber foods. Examples of low-fiber foods include: * Canned or cooked fruits without skin or seeds * Canned or cooked vegetables such as green beans, carrots and potatoes (without the skin) * Eggs, fish and poultry * Refined white bread * Fruit and vegetable juice with no pulp * Low-fiber cereals * Milk, yogurt and cheese * White rice, pasta and noodles You were prescribed following antibiotics 1) take ciprofloxacin 500 mg twice daily for 7 days 2) take metronidazole 500 mg 3 times daily for next 7 days. Please take Protonix 40 mg once daily. Please stop aspirin for next 7 days. You need to follow-up with GI doctor for colonoscopy in 4 to 6 weeks. Pending Studies at Discharge: No Stand-Alone Forms: [facility], Smoking Cessation Medications and DC Order Prescriptions: New acetaminophen 325 mg Tablet 650 mg PO Q4H PRN (Reason: fever or pain) Qty: 20 0RF pantoprazole 40 mg Tablet,Delayed Release (Dr/Ec) 40 mg PO QAM Qty: 30 0RF ciprofloxacin HCl [Cipro] 500 mg tablet 500 mg PO BID Qty: 14 0RF metronidazole 500 mg tablet 500 mg PO TID 7 Days Qty: 21 0RF Continued finasteride 5 mg tablet 5 mg PO DAILY Qty: 90 1RF atorvastatin [Lipitor] 40 mg tablet 40 mg PO DAILY metformin [Glucophage] 500 mg tablet 1,000 mg PO BID glipizide 10 mg tablet extended release 24hr 10 mg PO DAILY lisinopril 40 mg tablet 40 mg PO DAILY Discontinued aspirin 81 mg tablet,delayed release (DR/EC) 81 mg PO DAILY Discharge Orders: Discharge Order (Routine); Ordered 06/04/22 Ordered By: Tavo De La Paz Admission Data Admit Date/Time: 06/03/22 01:46 Attending Provider: Tavo De La Paz Admit Provider: Sg Lynn Primary Care Provider: Fabian Cox Other Providers: Sg Lynn ; Lita Dos Santos Other Interventions: Discharge Summary Assessment (RN) Last Done: 06/04/22 13:40
== END 2022-06-04 14:32 | disposition home or self-care (01) ==
LOC: ED 21:21 → INTOOBSV 06-03 01:46 → EDINP 06-03 01:46 → 2W 06-03 04:24

== ENCOUNTER 2023-07-11 20:19 | Inpatient (IN) ==
[2023-07-11 21:11] LABS: Hematocrit (blood only) 44.1 % (42.0-52.0); Hemoglobin 15.3 g/dl (14.0-18.0); Mean Corpuscular Hemoglobin 28.5 pg (25.0-34.0); Mean Corpuscular Hgb Conc 34.7 g/dL (32.0-36.0); Mean Corpuscular Volume 82.1 fL (80.0-100.0); Mean Platelet Volume 10.5 fL (9.4-12.4); Platelet Count 207 K/uL (130-400); RDW Coefficient of Variation 13.3 % (11.5-14.5); RDW Standard Deviation 39.4 fL (36.4-46.3); Red Blood Count 5.37 M/uL (4.70-6.10); White Blood Count 7.14 K/ul (4.8-10.8)
[2023-07-11 21:27] LABS: Albumin Globulin Ratio 1.3 (0.9-2); Albumin Level 4.1 gm/dl (3.4-5.0); BUN Creatinine Ratio 21.7 (10-20); Bilirubin,Total 0.6 mg/dl (0.2-1.0); Calcium 9.3 mg/dl (8.6-10.3); Creatinine Clr Calc Pharmacy 63.5 ml/min; Est GFR (African American) 69.1 ml/min; Est GFR (Non-African American) 59.6 ml/min; Globulin 3.2 gm/dl (2.5-4.0); Magnesium 1.7 mg/dl (1.7-2.4); Potassium 3.9 mmol/L (3.5-5.1); Total Protein 7.3 gm/dl (6.0-8.3)
--- NOTE | 2023-07-11 21:31 | XRay Report ---
SINGLE VIEW CHEST CLINICAL HISTORY: Strokelike symptoms. FINDINGS: An AP, portable, upright chest radiograph is compared to study dated 11/09/2018. The heart is enlarged and noting atherosclerotic calcification of the thoracic aorta. The pulmonary vasculature i s noncongested. There is mild bibasilar atelectasis. The lungs and pleural spaces are otherwise clear . No pneumothorax is seen. The skeletal structures are osteopenic. The bony thorax is grossly intact. IMPRESSION: Cardiomegaly with no acute cardiopulmonary abnormality. ACT 112: Negative or not required by law. Electronically signed by: Mathew Newman M.D. 07/11/2023 9:29 PM
[2023-07-11 21:40] LABS: Partial Thromboplastin Ratio 0.9; Partial Thromboplastin Time 26.4 Seconds (21.0-31.0); Prothrombin Time 10.6 Seconds (9.0-12.0)
--- NOTE | 2023-07-11 21:57 | CT Scan Report ---
CT SCAN OF THE BRAIN WITHOUT IV CONTRAST CLINICAL HISTORY: Neurological deficit. Stroke like symptoms. COMPARISON STUDY: CT of the brain dated 06/10/2022. TECHNIQUE: Unenhanced axial CT scan of the brain is performed from the vertex to the skull base. A do se lowering technique was utilized adhering to the principles of ALARA. CT DOSE: 703.85 mGy.cm FINDINGS: Brain parenchyma: There is age-related involutional change noting mild/moderate subcortical and periv entricular microangiopathic disease. There is no hemorrhage, mass effect, or evidence of acute territ orial ischemia by CT criteria. There is a chronic lacunar infarct in the left thalamus. A chronic figueroa earing lacunar infarct in the right internal capsule is new from 2021. Morales-white matter differentiat ion is preserved. No extra-axial fluid collection is seen. Ventricles, sulci, cisterns: Prominent secondary to involutional change. Intracranial vasculature: There is atherosclerotic calcification of the cavernous carotid and vertebr al arteries. Calvarium: Unremarkable. Sinuses and mastoids: There is a 13 mm retention cyst in the left maxillary antrum. Mild mucosal thic kening is seen in the left sphenoid and left frontal sinuses. The remaining paranasal sinuses are henok ar. The mastoid air cells are well pneumatized. Orbits: The bony orbits are grossly intact. IMPRESSION: There is no hemorrhage, mass effect, or evidence of acute territorial ischemia by CT ernesto ramirez. ACT 112: Negative or not required by law. Electronically signed by: Mathew Newman M.D. 07/11/2023 9:55 PM
[2023-07-11] MEDS ORDERED: SODIUM CHLORIDE 0.9% 1,000 ML IV ONE (23:22)
--- NOTE | 2023-07-11 23:29 | Emergency Department Note ---
History of Present Illness General Chief complaint: Confusion Stated complaint: CONFUSION, LETHARGIC Time Seen by Provider: 07/11/23 23:14 Source: patient, family ( is at the bedside), RN notes reviewed and old records reviewed (Includin2021 GI consultation) Mode of arrival: ambulatory Limitations: no limitations History of Present Illness This patient 69-year-old male who has a history of a CVA, comes in after being confused and feeling lost over the last couple days. His feels that the processing is not working. She said that he felt like the TV was not working he has been tired and sleepy he has been intermittently confused. He did have a stroke 4 years ago and a TIA 1 year ago no dysuria no pain no headache chronic cough unchanged no fall or trauma no shortness of breath his right arm felt tingly earlier but it feels better now. No difficulty speaking or swallowing. His feels he is doing better now but just as his history is with processing thoughts. She is also concerned that his medications may have been confused the med list from the pharmacy did not 100% reconciled what he was getting and she is not sure that the meds are not mixed up Home Medications Medication Instructions Recorded Confirmed Type atorvastatin 40 mg tablet (Lipitor) 40 mg PO HS 11/09/18 07/11/23 History finasteride 5 mg tablet 5 mg PO DAILY #90 tabs 04/05/22 07/11/23 Rx glipizide 10 mg tablet, extended 10 mg PO DAILYBB 06/03/22 07/11/23 History release 24 hr lisinopril 40 mg tablet 40 mg PO DAILY 06/03/22 07/11/23 History pantoprazole 40 mg tablet,delayed 40 mg PO QAM #30 tabs 06/04/22 07/11/23 Rx release aspirin 81 mg tablet,delayed 81 mg PO DAILY 07/11/23 07/11/23 History release metformin 500 mg tablet 1,000 mg PO BIDM 07/11/23 07/11/23 History Allergies Allergy/AdvReac Type Severity Reaction Status Date / Time LORENE Inhibitors AdvReac Intermediate Cough Verified 07/12/23 01:02 sitagliptin [From Januvia] AdvReac Intermediate COUGH-PER Verified 07/11/23 23:31 GMG Past Med/Surg History Medical History Leukocytosis Rectal bleeding Acute CVA (cerebrovascular accident) Stroke-like symptoms Hypertensive urgency Stroke-like symptoms Diabetes mellitus, type II Hyperlipidemia Hypertension Diabetes Surgical History No pertinent past surgical history Family History Mother Stroke Diabetes Brother Diabetes Father Cancer Fast spreading, small cell cancer, in three months Social History Smoking Status: Current some day smoker Tobacco Type: Cigarettes Age Started Using Tobacco: 18; Age Quit Using Tobacco: 44; packs per day: 2.5; Cigarettes Per Day: 45; Second Hand Exposure: No; Do You Dip or Chew Tobacco: No; Tobacco Cessation Education Requested by Patient: No Hx Alcohol Use: No Hx Substance Use: No Preferred Language: Slovak Communication Ability: Effective Visual Impairment: No Limitations Hearing Ability: Hard of Hearing Interior Paneler Required: No Beliefs That Will Affect Care: None marital status: Current Living Situation: Spouse current occupational status: retired current occupation: Retired from [employer] How many Children do You have: 3 Other Information That Helps Us Care for You: No Feels Safe at Home: Yes Safety Concerns: Feels Safe At This Time Childhood Exposure to Second-Hand Smoke: Yes caffeine: Yes (coffee two cups daily) during the past year weight has: remained stable Dental Care, Regularly: Yes Physical Activity Frequency: 3-4 Times per Week Physical Activity Frequency Comment: yard work Seatbelt Use: always Sunscreen Use: Yes (intermittently, while at the beach) Assistive Devices: None Review of Systems A total of 10 systems reviewed and were otherwise negative Physical Exam Vital Signs Vital Signs - 24 hr 07/11/23 20:21 07/11/23 21:05 07/11/23 21:06 Temperature 36.5 C Temperature Source Oral Pulse Rate 77 72 Pulse Rate [Apical] 68 Respiratory Rate 18 18 Respiratory Effort / Characteristics Non-Labored Respiratory Depth Normal Normal Respiratory Pattern Regular Blood Pressure 164/100 H Blood Pressure [Left Arm] 170/92 H Blood Pressure Mean 121 Blood Pressure Mean [Left Arm] 118 Pulse Oximetry 95 95 Oxygen Delivery Method Room Air Room Air Oxygen Flow Rate Sepsis Recent Fever Within 48 Hours No Sepsis New/Unexplained Change in Mental Status Yes Sepsis Action Taken by Nursing No Action Required 07/11/23 21:11 07/11/23 22:37 Temperature Temperature Source Pulse Rate 70 Pulse Rate [Apical] Respiratory Rate 18 Respiratory Effort / Characteristics Respiratory Depth Respiratory Pattern Blood Pressure Blood Pressure [Left Arm] Blood Pressure Mean Blood Pressure Mean [Left Arm] Pulse Oximetry 95 Oxygen Delivery Method Room Air Room Air Oxygen Flow Rate 0 Sepsis Recent Fever Within 48 Hours Sepsis New/Unexplained Change in Mental Status Sepsis Action Taken by Nursing General: Well developed well nourished older male who is alert and orient x3 and answers all questions appropriately and appears in no acute distress, breathing comfortably on room air. Normal speech HEENT: Normal cephalic atraumatic. Pupils are equal round and reactive to light. Extraocular movements are intact. Oropharynx is pink with moist mucous membranes. No swelling of the mouth lips or tongue. Neck: Supple with a midline trachea. No meningeal signs or stiffness, no JVD or bruits. No Stridor. Chest: Clear to auscultation bilaterally. No wheezes or rhonchi. No increased work of breathing. Heart: Regular rate and rhythm without murmurs or gallops. Abdomen: Soft nontender, nondistended without rebound guarding or rigidity. Extremities: No cyanosis clubbing or edema. No calf tenderness or assymetry Spine/Back. Non tender to palpation. No CVA tenderness Skin: Good turgor without rashes. Neurologic exam: Cranial nerves two through 12 are intact. Motor and sensation are intact and symmetrical throughout. Course Administered Medications Aspirin (Aspirin 81 Mg Ectab) 81 mg PO DAILY [facility] Stop: 08/11/23 08:59 Last Admin: 07/13/23 09:16 Dose: 81 mg Documented By: Admin: 07/12/23 09:27 Dose: 81 mg Documented By: PEYTON Atorvastatin Calcium (Atorvastatin 40 Mg Tab) 80 mg PO [facility] Stop: 08/11/23 20:59 Last Admin: 07/12/23 21:24 Dose: 80 mg Documented By: HEIDI Clopidogrel Bisulfate (Clopidogrel Bisulfate 75 Mg Tab) 75 mg PO [facility] Stop: 08/12/23 08:59 Last Admin: 07/13/23 09:16 Dose: 75 mg Documented By: ANN Enoxaparin Sodium (Enoxaparin Inj 40 Mg/0.4 Ml Syr) [facility] [place]: 08/11/23 08:59 Last Admin: 07/13/23 09:16 Dose: 40 mg Documented By: Admin: 07/12/23 09:28 Dose: 40 mg Documented By: PEYTON Finasteride (Finasteride 5 Mg Tab) 5 mg PO DAILY [facility] Stop: 08/11/23 08:59 Last Admin: 07/13/23 09:15 Dose: 5 mg Documented By: Admin: 07/12/23 09:27 Dose: 5 mg Documented By: PEYTON Insulin Aspart (Insulin Aspart Per Unit Charge) 0 units SC ACHS [facility] Stop: 08/11/23 00:24 Last Admin: 07/13/23 09:18 Dose: 3 units Documented By: ANN Co-signed By: DMITRY Admin: 07/12/23 21:27 Dose: 1 units Documented By: HEIDI Co-signed By: FELIPE Admin: 07/12/23 18:09 Dose: 2 units Documented By: PATRICIA Co-signed By: RAMYA Admin: 07/12/23 13:33 Dose: 3 units Documented By: PEYTON Co-signed By: JENNA Admin: 07/12/23 09:27 Dose: 4 units Documented By: PEYTON Co-signed By: YESY Admin: 07/12/23 01:20 Dose: 4 units Documented By: AIDA Co-signed By: AGUSTIN Insulin Glargine (Lantus Per Unit Charge) 20 units SQ [facility] Stop: 08/11/23 20:59 Last Admin: 07/12/23 21:29 Dose: 20 units Documented By: HEIDI Co-signed By: ELLEN Pantoprazole Sodium (Pantoprazole 40 Mg Tab) 40 [facility] [place]: 08/11/23 08:59 Last Admin: 07/13/23 09:15 Dose: 40 mg Documented By: Admin: 07/12/23 09:27 Dose: 40 mg Documented By: PEYTON Discontinued Medications Aspirin (Aspirin 81 Mg Ectab) 81 mg PO NOW STA Stop: 07/12/23 02:11 Last Admin: 07/12/23 02:38 Dose: 81 mg Documented By: AIDA Clopidogrel Bisulfate (Clopidogrel Bisulfate 75 Mg Tab) 75 mg PO NOW ONE Stop: 07/12/23 04:12 Last Admin: 07/12/23 05:05 Dose: 75 mg Documented By: AIDA Sodium Chloride (Nss) 1,000 mls @ 999 mls/hr IV .Q1H1M ONE Stop: 07/12/23 00:22 Last Infusion: 07/12/23 01:04 Dose: Infused Documented By: Admin: 07/12/23 00:03 Dose: 999 mls/hr Documented By: AIDA Magnesium Sulfate/Dextrose (Magnesium Sulfate / D5w) 1 gm in 100 mls @ 50 mls/hr IV Q2H JAKI Stop: 07/12/23 03:44 Last Infusion: 07/12/23 04:38 Dose: Infused Documented By: Admin: 07/12/23 02:38 Dose: 50 mls/hr Documented By: Infusion: 07/12/23 02:02 Dose: Infused Documented By: Admin: 07/12/23 00:02 Dose: 50 mls/hr Documented By: AIDA Insulin Glargine (Lantus Per Unit Charge) 10 units SQ NOW STA Stop: 07/12/23 00:22 Last Admin: 07/12/23 01:19 Dose: 10 units Documented By: AIDA Co-signed By: AGUSTIN Medical Decision Making Differential Diagnosis Stroke, TIA, infection, electrolyte or metabolic abnormality, UTI, diabetic emergency, medication, toxicologic Medical Records Attestation: I reviewed the patient's medical records. Home Medications Current Medication List: was personally reviewed by me Laboratory Data Attestation: I reviewed the patient's lab results. 07/13/23 06:05 07/13/23 06:05 Lab Results 07/11/23 07/11/23 07/12/23 Range/Units 20:41 23:36 00:01 WBC 7.14 (4.8-10.8) K/ul RBC 5.37 (4.70-6.10) M/uL Hgb 15.3 (14.0-18.0) g/dl Hct 44.1 (42.0-52.0) % MCV 82.1 (80.0-100.0) fL MCH 28.5 (25.0-34.0) pg MCHC 34.7 (32.0-36.0) g/dL RDW Std Deviation 39.4 (36.4-46.3) fL RDW Coeff of Delta 13.3 (11.5-14.5) % Plt Count 207 (130-400) K/uL MPV 10.5 (9.4-12.4) fL PT 10.6 (9.0-12.0) Seconds INR 1.0 (0.9-1.1) APTT 26.4 (21.0-31.0) Seconds PTT Ratio 0.9 Sodium 136 (136-145) mmol/L Potassium 3.9 (3.5-5.1) mmol/L Chloride 104 (98-107) mmol/L Carbon Dioxide 24 (21-32) mmol/L Anion Gap 8 (3-11) BUN 26 H (6-23) mg/dl Creatinine 1.20 (0.6-1.4) mg/dl Est Cr Clr Drug Dosing 63.5 ml/min Est GFR ( Amer) 69.1 ml/min Est GFR (Non-Af Amer) 59.6 ml/min BUN/Creatinine Ratio 21.7 H (10-20) Glucose 295 H (70-99(Fasting)) mg/dl POC Glucose (70-99) mg/dl Calcium 9.3 (8.6-10.3) mg/dl Magnesium 1.7 (1.7-2.4) mg/dl Total Bilirubin 0.6 (0.2-1.0) mg/dl AST 9 L (13-39) U/L ALT 9 (7-52) U/L Alkaline Phosphatase 87 (34-104) U/L Troponin I High Sens 6.0 (0-20) pg/ml Total Protein 7.3 (6.0-8.3) gm/dl Albumin 4.1 (3.4-5.0) gm/dl Globulin 3.2 (2.5-4.0) gm/dl Albumin/Globulin Ratio 1.3 (0.9-2) TSH 2.501 (0.300-4.500) uIu/ml Urine Color [place] Urine Appearance Clear (Clear) Urine pH 5.0 (4.5-7.5) Ur Specific [place] 1.039 H (1.000-1.030) Urine Protein 1+ H (Negative) Urine Glucose (UA) 3+ H (Negative) Urine Ketones Negative (Negative) Urine Blood Trace H (Negative) Urine Nitrite Negative (Negative) Urine Bilirubin Negative (Negative) Urine Urobilinogen Negative (Negative) Ur Leukocyte Esterase Negative (Negative) Urine WBC (Auto) 1-5 (0-5) /hpf Urine RBC (Auto) 0-4 (0-4) /hpf U Hyaline Cast (Auto) 1-5 (0-5) /lpf U Epithel Cells (Auto) 5-10 H (0-5) /lpf Urine Bacteria (Auto) Negative (Negative) 07/12/23 Range/Units 00:52 WBC (4.8-10.8) K/ul RBC (4.70-6.10) M/uL Hgb (14.0-18.0) g/dl Hct (42.0-52.0) % MCV (80.0-100.0) fL MCH (25.0-34.0) pg MCHC (32.0-36.0) g/dL RDW Std Deviation (36.4-46.3) fL RDW Coeff of Delta (11.5-14.5) % Plt Count (130-400) K/uL MPV (9.4-12.4) fL PT (9.0-12.0) Seconds INR (0.9-1.1) APTT (21.0-31.0) Seconds PTT Ratio Sodium (136-145) mmol/L Potassium (3.5-5.1) mmol/L Chloride (98-107) mmol/L Carbon Dioxide (21-32) mmol/L Anion Gap (3-11) BUN (6-23) mg/dl Creatinine (0.6-1.4) mg/dl Est Cr Clr Drug Dosing ml/min Est GFR ( Amer) ml/min Est GFR (Non-Af Amer) ml/min BUN/Creatinine Ratio (10-20) Glucose (70-99(Fasting)) mg/dl POC Glucose 235 H (70-99) mg/dl Calcium (8.6-10.3) mg/dl Magnesium (1.7-2.4) mg/dl Total Bilirubin (0.2-1.0) mg/dl AST (13-39) U/L ALT (7-52) U/L Alkaline Phosphatase (34-104) U/L Troponin I High Sens (0-20) pg/ml Total Protein (6.0-8.3) gm/dl Albumin (3.4-5.0) gm/dl Globulin (2.5-4.0) gm/dl Albumin/Globulin Ratio (0.9-2) TSH (0.300-4.500) uIu/ml Urine Color Urine Appearance (Clear) Urine pH (4.5-7.5) Ur Specific [place] (1.000-1.030) Urine Protein (Negative) Urine Glucose (UA) (Negative) Urine Ketones (Negative) Urine Blood (Negative) Urine Nitrite (Negative) Urine Bilirubin (Negative) Urine Urobilinogen (Negative) Ur Leukocyte Esterase (Negative) Urine WBC (Auto) (0-5) /hpf Urine RBC (Auto) (0-4) /hpf U Hyaline Cast (Auto) (0-5) /lpf U Epithel Cells (Auto) (0-5) /lpf Urine Bacteria (Auto) (Negative) Imaging Data Attestation: I personally reviewed and interpreted this imaging study as follows: My Impression: Head CTno hemorrhage or mass effect seen Chest x-rayno acute infiltrate, failure, pneumothorax seen Radiologist's Impression: Chest X-Ray 07/11/23 20:28 SINGLE VIEW CHEST CLINICAL HISTORY: Strokelike symptoms. FINDINGS: An AP, portable, upright chest radiograph is compared to study dated 11/09/2018. The heart is enlarged and noting atherosclerotic calcification of the thoracic aorta. The pulmonary vasculature is noncongested. There is mild bibasilar atelectasis. The lungs and pleural spaces are otherwise clear. No pneumothorax is seen. The skeletal structures are osteopenic. The bony thorax is grossly intact. IMPRESSION: Cardiomegaly with no acute cardiopulmonary abnormality. ACT 112: Negative or not required by law. Electronically signed by: Mathew Newman M.D. 07/11/2023 9:[address] 07/11/23 20:28 CT SCAN OF THE BRAIN WITHOUT IV CONTRAST CLINICAL HISTORY: Neurological deficit. Stroke like symptoms. COMPARISON STUDY: CT of the brain dated 06/10/2022. TECHNIQUE: Unenhanced axial CT scan of the brain is performed from the vertex to the skull base. A dose lowering technique was utilized adhering to the principles of ALARA. CT DOSE: 703.85 mGy.cm FINDINGS: Brain parenchyma: There is age-related involutional change noting mild/moderate subcortical and periventricular microangiopathic disease. There is no hemorrhage, mass effect, or evidence of acute territorial ischemia by CT criteria. There is a chronic lacunar infarct in the left thalamus. A chronic appearing lacunar infarct in the right internal capsule is new from 2021. Morales- white matter differentiation is preserved. No extra-axial fluid collection is seen. Ventricles, sulci, cisterns: Prominent secondary to involutional change. Intracranial vasculature: There is atherosclerotic calcification of the cavernous carotid and vertebral arteries. Calvarium: Unremarkable. Sinuses and mastoids: There is a 13 mm retention cyst in the left maxillary antrum. Mild mucosal thickening is seen in the left sphenoid and left frontal sinuses. The remaining paranasal sinuses are clear. The mastoid air cells are well pneumatized. Orbits: The bony orbits are grossly intact. IMPRESSION: There is no hemorrhage, mass effect, or evidence of acute territorial ischemia by CT criteria. ACT 112: Negative or not required by law. Electronically signed by: Mathew Newman M.D. 07/11/2023 9:55 PM ECG Data Attestation: I personally reviewed and interpreted this ECG as follows: Indication: + weakness Rate (beats per minute): 73 Rhythm: + normal sinus ECG Intervals/blocks: + Normal QRS, + Normal QT and + Normal [place] ECG Silva: + Normal ECG ST segments: + Normal ST segments and + T-wave inversions (Laterally) ECG Findings: no PACs or no PVCs Comparison ECG Date: from (06/10/2022) Change: the following changes noted (The T waves laterally are now slightly inverted) MDM Narrative This patient comes in as scribed above his says he has been confused over the last couple days. he has a nonfocal neurologic exam at present although said his left arm was numb earlier. He had extensive work-up done CAT scan of his head was unremarkable. EKG has some subtle T wave abnormalities but he has no chest pain or shortness of breath. His troponin is within normal limits. He has no fever white count to suggest. He has no significant electrolyte or metabolic abnormalities. I did consult and discussed the case with Dr. Lafleur as I do believe the patient should be admitted/observed for further neurologic evaluation and work-up. Although he has no neurologic deficits at present and a normal CAT scan. I am still concerned that he could have had a stroke/TIA. . and the patient were happy with the plan Continuous cardiac monitoring: Orders placed in EMR for continuous cart monitoring: Upon my evaluation patient with to be normal sinus rhythm rate 70 Impression & Plan Weakness, Acute confusion, History of CVA (cerebrovascular accident), Prostate cancer, Diabetes mellitus, type II Discharge Plan Visit Data Chief Complaint: Confusion Stated Complaint: CONFUSION, LETHARGIC ED Provider: Wilfredo Aquino Discharge Problem: Weakness, Acute confusion, History of CVA (cerebrovascular accident), Prostate cancer, Diabetes mellitus, type II Patient Disposition: Admitted As Inpatient Discharge Instructions Interventions: ED Discharge Assessment Last Done: 07/12/23 04:03 Discharge Problem: Diabetes mellitus, type II Qualifiers: Diabetes mellitus intermediate manager insulin use: unspecified intermediate manager insulin use status Diabetes mellitus complication status: without complication Qualified Code(s): E11.9 - Type 2 diabetes mellitus without complications
[2023-07-11 23:49] LABS: Appearance Urine Clear (Clear); Bacteria Urine Automated Negative (Negative); Bilirubin Urine Negative (Negative); Blood Urine Trace (Negative); Color Urine Orange; Glucose Urine UA 3+ (Negative); Ketones Urine Negative (Negative); Leukocyte Esterase Urine Negative (Negative); Nitrite Urine Negative (Negative); Protein Urine 1+ (Negative); RBC Urine Automated 0-4 /hpf (0-4); Specific Gravity Urine 1.039 (1.000-1.030); Urobilinogen Urine Negative (Negative)
[2023-07-12] MEDS: MAGNESIUM SULFATE / D5W 1 GM/100 ML BAG IV SCH ×2 (00:02→02:38)
[2023-07-12] MEDS ORDERED: DEXTROSE 50% 50 ML SYRINGE IV PRN (00:21)
[2023-07-12] MEDS ORDERED: GLUCOSE 40% GEL 15 GM TUBE PO PRN (00:21)
[2023-07-12] MEDS ORDERED: LANTUS PER UNIT CHARGE SQ STA (00:21)
[2023-07-12] MEDS ORDERED: GLUCOSE 10 TAB/TUBE PO PRN (00:21)
[2023-07-12] MEDS ORDERED: CARBOHYDRATES FOR HYPOGLYCEMIA PO PRN (00:21)
[2023-07-12] MEDS ORDERED: GLUCAGON FOR INJ 1 MG VIAL SQ PRN (00:21)
--- NOTE | 2023-07-12 00:54 | History & Physical Report ---
Date of Service July 12, 2023 Assessment & Plan (1) Encephalopathy: Plan: With transient apraxia symptoms Rule out recurrent CVA ? Aspirin failure Uncontrolled BP and hyperglycemia contributory to encephalopathy hyperlipidemia on statin Rx DM 2 on oral medications, suboptimal control as of last hemoglobin A1c of 8.8 last year prostate cancer, patient follows with [facility]ist past tobacco abuse OBS Medical telemetry Continue aspirin for secondary stroke prevention MRI/MRI brain Additional stroke work-up, Neurology consult contingent on MRI results Permissive hypertension for now, change LORENE inhibitor to losartan if no stroke given LORENE inhibitor cough as per patient account Basal bolus insulin, ISS BG goal 1 10-1 40, carb count coverage, update hemoglobin A1c Patient had expressed willingness in taking insulin at home upon discharge if warranted. PT OT eval DVT prophylaxis. Lovenox subcu Full code Patient requesting updates providers. Meenakshi Alicia Gar, contact #[phone]. Text document was generated using [employer] voice recognition software. It may contain grammatical or spelling errors. Kindly contact undersigned for clarification of any documentation item in question. ADDENDUM (07/12, 4 AM) Brain MRI results noted. 1. Small, acute infarct right basal ganglia and periventricular white matter. 2. No hemorrhage, hydrocephalus, or herniation. Change to full admission Add Plavix to aspirin for possible aspirin failure TTE, carotid Dopplers for additional stroke work-up Neurology consult Re: CVA History of Present Illness Chief Complaint: Confusion Primary Care Provider: Fabian Cox DO History obtained from patient, family, and records. Medical history significant for hypertension, hyperlipidemia, CVA, DM 2 on oral medications, prostate cancer, past tobacco abuse. Last confinement June 2022 for acute diverticulitis status post antibiotic Rx. Patient aspirin temporarily held during confinement due to bleeding and subsequently resumed outpatient. Patient noted to be confused as per the last couple of days. Somewhat tired and sleepy. Patient could not figure out how to use TV remote control. Patient not sure if patient taking his home medications due to confusion. Patient denies chest pain, SOB, headache symptoms, abdominal pain. Chronic cough symptoms attributed to LORENE inhibitor as per . Highest SBP of 170s documented at the ER. Patient feeling much better upon arrival at the ER. Medical History as above Surgical History : prostate biopsy Family History : DM, stroke Personal/Social history : Past tobacco abuse, occasional EtOH intake, retired factory employee/business information analyst Allergies Allergy/AdvReac Type Severity Reaction Status Date / Time LORENE Inhibitors AdvReac Intermediate Cough Verified 07/12/23 01:02 sitagliptin [From Joeleonidas] AdvReac Intermediate COUGH-PER Verified 07/11/23 23:31 [facility] Home Medications Medication Instructions Recorded Confirmed Type atorvastatin 40 mg tablet (Lipitor) 40 mg PO HS 11/09/18 07/11/23 History finasteride 5 mg tablet 5 mg PO DAILY #90 tabs 04/05/22 07/11/23 Rx glipizide 10 mg tablet, extended 10 mg PO DAILYBB 06/03/22 07/11/23 History release 24 hr lisinopril 40 mg tablet 40 mg PO DAILY 06/03/22 07/11/23 History pantoprazole 40 mg tablet,delayed 40 mg PO QAM #30 tabs 06/04/22 07/11/23 Rx release aspirin 81 mg tablet,delayed 81 mg PO DAILY 07/11/23 07/11/23 History release metformin 500 mg tablet 1,000 mg PO BIDM 07/11/23 07/11/23 History Past Med/Surg History Medical History Leukocytosis Rectal bleeding Acute CVA (cerebrovascular accident) Stroke-like symptoms Hypertensive urgency Stroke-like symptoms Diabetes mellitus, type II Hyperlipidemia Hypertension Diabetes Surgical History No pertinent past surgical history Family History Mother Stroke Diabetes Brother Diabetes Father Cancer Fast spreading, small cell cancer, in three months Social History Smoking Status: Former smoker Tobacco Type: Cigarettes Age Started Using Tobacco: 18; Age Quit Using Tobacco: 44; packs per day: 2.5; Cigarettes Per Day: 45; Second Hand Exposure: Yes; Do You Dip or Chew Tobacco: Yes (dip); Hx Alcohol Use: Yes Alcohol type: beer and hard liquor Alcohol type Comment: [place] Alcohol Intake Frequency: 2-4 x/Month Hx Substance Use: No Preferred Language: Maltese Communication Ability: Effective Visual Impairment: No Limitations Hearing Ability: Hard of Hearing Vertical Punch Operator Required: No Beliefs That Will Affect Care: None marital status: Current Living Situation: Spouse current occupational status: retired current occupation: Retired from [employer] and [employer] How many Children do You have: 3 Feels Safe at Home: Yes Childhood Exposure to Second-Hand Smoke: Yes caffeine: Yes (coffee two cups daily) during the past year weight has: remained stable Dental Care, Regularly: Yes Physical Activity Frequency: 3-4 Times per Week Physical Activity Frequency Comment: yard work Seatbelt Use: always Sunscreen Use: Yes (intermittently, while at the beach) Assistive Devices: None Review of Systems Review of Systems: As per HPI, all other systems reviewed and negative Physical Exam Physical Exam: GENERAL: Comfortable, oriented to day and year, pleasant, no respiratory distress SKIN: Normal color, warm HEENT: [place] palpebral conjunctivae, no ptosis, dry buccal mucosa NECK : Supple, no tenderness CHEST : Decreased breath sounds, scattered expiratory wheezes (chronic as per patient), no tenderness HEART : RRR, no obvious murmurs ABDOMEN: Some distention, nontender EXTREMITIES : No LE swelling/tenderness, no other conspicuous deformities noted NEUROLOGIC : Coherent, no facial asymmetry, gait and stance not assessed Results & Data Results & Data Vital Signs (Past 12 Hours) Vital Signs Temp Pulse Pulse Resp BP BP Pulse Ox 07/11/23 23:00 60 17 152/100 H 94 07/11/23 22:37 07/11/23 21:11 70 18 95 07/11/23 21:06 68 18 170/92 H 95 07/11/23 21:05 72 07/11/23 20:21 36.5 C 77 18 164/100 H 95 O2 Del Method O2 Flow Rate 07/11/23 23:00 Room Air 07/11/23 22:37 Room Air 07/11/23 21:11 Room Air 0 07/11/23 21:06 Room Air 07/11/23 21:05 07/11/23 20:21 Room Air Laboratory Results Laboratory Results WBC 7.14 K/ul (4.8-10.8) 07/11/23 20:41 RBC 5.37 M/uL (4.70-6.10) 07/11/23 20:41 Hgb 15.3 g/dl (14.0-18.0) 07/11/23 20:41 Hct 44.1 % (42.0-52.0) 07/11/23 20:41 MCV 82.1 fL (80.0-100.0) 07/11/23 20:41 MCH 28.5 pg (25.0-34.0) 07/11/23 20:41 MCHC 34.7 g/dL (32.0-36.0) 07/11/23 20:41 RDW Std Deviation 39.4 fL (36.4-46.3) 07/11/23 20:41 RDW Coeff of Delta 13.3 % (11.5-14.5) 07/11/23 20:41 Plt Count 207 K/uL (130-400) 07/11/23 20:41 MPV 10.5 fL (9.4-12.4) 07/11/23 20:41 PT 10.6 Seconds (9.0-12.0) 07/11/23 20:41 INR 1.0 (0.9-1.1) 07/11/23 20:41 APTT 26.4 Seconds (21.0-31.0) 07/11/23 20:41 PTT Ratio 0.9 07/11/23 20:41 Sodium 136 mmol/L (136-145) 07/11/23 20:41 Potassium 3.9 mmol/L (3.5-5.1) 07/11/23 20:41 Chloride 104 mmol/L (98-107) 07/11/23 20:41 Carbon Dioxide 24 mmol/L (21-32) 07/11/23 20:41 Anion Gap 8 (3-11) 07/11/23 20:41 BUN 26 mg/dl (6-23) H 07/11/23 20:41 Creatinine 1.20 mg/dl (0.6-1.4) 07/11/23 20:41 Est Cr Clr Drug Dosing 63.5 ml/min 07/11/23 20:41 Est GFR ( Amer) 69.1 ml/min 07/11/23 20:41 Est GFR (Non-Af Amer) 59.6 ml/min 07/11/23 20:41 BUN/Creatinine Ratio 21.7 (10-20) H 07/11/23 20:41 Glucose 295 mg/dl (70-99(Fasting)) H 07/11/23 20:41 POC Glucose 235 mg/dl (70-99) H 07/12/23 00:52 Calcium 9.3 mg/dl (8.6-10.3) 07/11/23 20:41 Magnesium 1.7 mg/dl (1.7-2.4) 07/11/23 20:41 Total Bilirubin 0.6 mg/dl (0.2-1.0) 07/11/23 20:41 AST 9 U/L (13-39) L 07/11/23 20:41 ALT 9 U/L (7-52) 07/11/23 20:41 Alkaline Phosphatase 87 U/L (34-104) 07/11/23 20:41 Troponin I High Sens 6.0 pg/ml (0-20) 07/12/23 00:01 Total Protein 7.3 gm/dl (6.0-8.3) 07/11/23 20:41 Albumin 4.1 gm/dl (3.4-5.0) 07/11/23 20:41 Globulin 3.2 gm/dl (2.5-4.0) 07/11/23 20:41 Albumin/Globulin Ratio 1.3 (0.9-2) 07/11/23 20:41 Urine Color [place] 07/11/23 23:36 Urine Appearance Clear (Clear) 07/11/23 23:36 Urine pH 5.0 (4.5-7.5) 07/11/23 23:36 Ur Specific [place] 1.039 (1.000-1.030) H 07/11/23 23:36 Urine Protein 1+ (Negative) H 07/11/23 23:36 Urine Glucose (UA) 3+ (Negative) H 07/11/23 23:36 Urine Ketones Negative (Negative) 07/11/23 23:36 Urine Blood Trace (Negative) H 07/11/23 23:36 Urine Nitrite Negative (Negative) 07/11/23 23:36 Urine Bilirubin Negative (Negative) 07/11/23 23:36 Urine Urobilinogen Negative (Negative) 07/11/23 23:36 Ur Leukocyte Esterase Negative (Negative) 07/11/23 23:36 Urine WBC (Auto) 1-5 /hpf (0-5) 07/11/23 23:36 Urine RBC (Auto) 0-4 /hpf (0-4) 07/11/23 23:36 U Hyaline Cast (Auto) 1-5 /lpf (0-5) 07/11/23 23:36 U Epithel Cells (Auto) 5-10 /lpf (0-5) H 07/11/23 23:36 Urine Bacteria (Auto) Negative (Negative) 07/11/23 23:36 Impressions Chest X-Ray 07/11/23 20:28 SINGLE VIEW CHEST CLINICAL HISTORY: Strokelike symptoms. FINDINGS: An AP, portable, upright chest radiograph is compared to study dated 11/09/2018. The heart is enlarged and noting atherosclerotic calcification of the thoracic aorta. The pulmonary vasculature is noncongested. There is mild bibasilar atelectasis. The lungs and pleural spaces are otherwise clear. No pneumothorax is seen. The skeletal structures are osteopenic. The bony thorax is grossly intact. IMPRESSION: Cardiomegaly with no acute cardiopulmonary abnormality. ACT 112: Negative or not required by law. Electronically signed by: Mathew Newman M.D. 07/11/2023 9:[address] 07/11/23 20:28 CT SCAN OF THE BRAIN WITHOUT IV CONTRAST CLINICAL HISTORY: Neurological deficit. Stroke like symptoms. COMPARISON STUDY: CT of the brain dated 06/10/2022. TECHNIQUE: Unenhanced axial CT scan of the brain is performed from the vertex to the skull base. A dose lowering technique was utilized adhering to the principles of ALARA. CT DOSE: 703.85 mGy.cm FINDINGS: Brain parenchyma: There is age-related involutional change noting mild/moderate subcortical and periventricular microangiopathic disease. There is no hemorrhage, mass effect, or evidence of acute territorial ischemia by CT criteria. There is a chronic lacunar infarct in the left thalamus. A chronic appearing lacunar infarct in the right internal capsule is new from 2021. Morales- white matter differentiation is preserved. No extra-axial fluid collection is seen. Ventricles, sulci, cisterns: Prominent secondary to involutional change. Intracranial vasculature: There is atherosclerotic calcification of the cavernous carotid and vertebral arteries. Calvarium: Unremarkable. Sinuses and mastoids: There is a 13 mm retention cyst in the left maxillary antrum. Mild mucosal thickening is seen in the left sphenoid and left frontal sinuses. The remaining paranasal sinuses are clear. The mastoid air cells are well pneumatized. Orbits: The bony orbits are grossly intact. IMPRESSION: There is no hemorrhage, mass effect, or evidence of acute territorial ischemia by CT criteria. ACT 112: Negative or not required by law. Electronically signed by: Mathew Newman M.D. 07/11/2023 9:55 PM Diagnostic Findings EKG as per my interpretation :Rate 75, NSR, normal axis, inferior infarct, nonspecific T wave abnormalities
[2023-07-12 01:01] LABS: Thyroid Stimulating Hormone 2.501 uIu/ml (0.300-4.500)
[2023-07-12] MEDS ORDERED: PROMETHAZINE HCL 6.25 MG in SODIUM CHLORIDE 0.9% 50 ML IV PRN (01:04)
[2023-07-12] MEDS ORDERED: ACETAMINOPHEN 325 MG TAB PO PRN ×2 (01:04→04:02)
[2023-07-12] MEDS: INSULIN ASPART PER UNIT CHARGE SC SCH ×5 (01:20→21:27)
[2023-07-12 01:48] LABS: Basophils # (auto) 0.02 K/uL (0.00-0.20); Basophils % (auto) 0.3 %; Eosinophils # (auto) 0.17 K/uL (0.00-0.50); Eosinophils % (auto) 2.1 %; Immature Granulocytes # (auto) 0.03 K/uL (0.01-0.20); Immature Granulocytes % (auto) 0.4 %; Lymphocytes # (auto) 2.42 K/uL (1.20-3.40); Lymphocytes % (auto) 30.4 %; Mean Corpuscular Hemoglobin 28.1 pg (25.0-34.0); Mean Corpuscular Volume 80.2 fL (80.0-100.0); Mean Platelet Volume 10.8 fL (9.4-12.4); Monocytes # (auto) 0.58 K/uL (0.11-0.59); Monocytes % (auto) 7.3 %; Neutrophils # (auto) 4.73 K/uL (1.40-6.50); Neutrophils % (auto) 59.5 %; Platelet Count 190 K/uL (130-400); RDW Coefficient of Variation 13.4 % (11.5-14.5); RDW Standard Deviation 38.5 fL (36.4-46.3); Red Blood Count 4.99 M/uL (4.70-6.10); White Blood Count 7.95 K/ul (4.8-10.8)
[2023-07-12 02:03] LABS: Potassium 3.7 mmol/L (3.5-5.1)
[2023-07-12 02:04] LABS: BUN Creatinine Ratio 20.4 (10-20); Calcium 8.2 mg/dl (8.6-10.3); Est GFR (African American) 83.1 ml/min; Est GFR (Non-African American) 71.7 ml/min
[2023-07-12] MEDS ORDERED: ASPIRIN 81 MG ECTAB PO STA (02:10)
--- NOTE | 2023-07-12 03:31 | Magnetic Resonance Report ---
Exam(s): MRI HEAD Without Contrast EXAM: MR Head Without Intravenous Contrast CLINICAL HISTORY: Reason for exam: apraxia. TECHNIQUE: Magnetic resonance images of the head/brain without intravenous contrast in multiple planes. COMPARISON: MRI brain 11/09/18. FINDINGS: Brain: Small volume acute infarct right basal ganglia and adjacent white matter. No mass-effect or acute, cortical infarct. No acute or chronic hemorrhage. Ventricles: No hydrocephalus or midline shift. Bones/joints: No calvarial lesions. Soft tissues: No scalp hematoma. Sinuses: Clear. Mastoid air cells: No mastoid effusion. IMPRESSION: 1. Small, acute infarct right basal ganglia and periventricular white matter. 2. No hemorrhage, hydrocephalus, or herniation. Communications: Verify Receipt Electronically signed by: Marlin Billy M.D. 07/12/23 03:30 AM
--- NOTE | 2023-07-12 03:31 | Magnetic Resonance Report ---
Exam(s): MRA HEAD Without Contrast EXAM: MR Angiography Head Without Intravenous Contrast CLINICAL HISTORY: Reason for exam: apraxia. TECHNIQUE: Magnetic resonance angiography images of the head without intravenous contrast. COMPARISON: None. FINDINGS: Right internal carotid artery: Patent. Right anterior cerebral artery: Patent. Right middle cerebral artery: Patent. Right posterior cerebral artery: Patent. Right vertebral artery: Patent. Left internal carotid artery: Patent. Left anterior cerebral artery: Patent. Left middle cerebral artery: Patent. Left posterior cerebral artery: Patent. Left vertebral artery: Patent. Basilar artery: Patent. Other: IMPRESSION: 1. No aneurysm or large vessel occlusion. Electronically signed by: Marlin Billy M.D. 07/12/23 03:30 AM
[2023-07-12] MEDS ORDERED: PHARMACIST DISCHARGE MED REC CONSULT PRN (04:02)
[2023-07-12] MEDS ORDERED: CLOPIDOGREL BISULFATE 75 MG TAB PO ONE (04:11)
[2023-07-12 07:57] LABS: Estimated Average Glucose 269 mg/dl
--- NOTE | 2023-07-12 08:56 | Ultrasound Report ---
BILATERAL CAROTID DOPPLER STUDY HISTORY: Stroke symptoms. COMPARISON: Neck CTA 06/10/2022. TECHNIQUE: Real-time, grayscale, and color Doppler sonography of the carotid arteries was performed. Imaging reviewed in the transverse and longitudinal planes. All measurements were calculated based on NASCET criteria. FINDINGS: Antegrade flow is seen in the bilateral vertebral arteries. No significant calcified plaque within the carotid arteries. The peak systolic velocity within the right ICA is 55 cm/s. The right systolic ratio is 0.6. The peak systolic velocity within the left ICA is 40 cm/s. The left systolic ratio is 0.4. IMPRESSION: No hemodynamically significant stenosis seen within the carotid arteries. ACT 112: Negative or not required by law. Electronically signed by: Gold Adhikari M.D. 07/12/2023 8:53 AM
[2023-07-12] MEDS: ASPIRIN 81 MG ECTAB PO SCH (09:27)
[2023-07-12] MEDS: PANTOprazole 40 MG TAB PO SCH (09:27)
[2023-07-12] MEDS: FINASTERIDE 5 MG TAB PO SCH (09:27)
[2023-07-12] MEDS: ENOXAPARIN INJ 40 MG/0.4 ML SYR SQ SCH (09:28)
--- NOTE | 2023-07-12 09:50 | Neurology Consultation ---
Date of Consultation July 12, 2023 Assessment & Plan (1) Stroke: 72 y/o male with history of stroke, HTN, HLD, DM, and prostate cancer that presents with two day history of generalized weakness and lethargy. Imaging with acute stroke and pt with hyperglycemia at admission. Suspect right upper extremity numbness may represent recrudescence. Pt may benefit from endocrinology consultation given A1C. Plan 1. Atorvastatin 80 mg 2. Aspirin 81 mg and plavix 75 mg have been initiated per primary. The patient has had more than two days of symptoms but it may be reasonable to continue DAPT for no longer than 21 days before resuming aspirin alone. 3. Telemetry 4. Neurochecks q4 5. Endocrinology consultation 6. ST/PT/OT 7. EEG 8. Zio patch at discharge 9. Sleep medicine referral Telehealth Consultation Telehealth Information Telehealth Information: I performed this visit using a real-time telehealth connection between my location and the patients location ([facility]). After connecting through interactive tele-video, patient was identified by name and date of and/or wristband check.Patient (or authorized healthcare repres entative) was informed that this was a telemedicine visit and it was being conducted confidentially over secure lines. My office door was closed and no one else was present in the room with me.Patient (or authorized healthcare branch sales and service representative) provided consent to proceed with the visit, expressed an understanding of privacy and security of the telemedicine visit, and gave permission to have a hospital branch sales and service representative in the room in order to assist with the visit and to conduct portions of the visit, as needed. I informed the patient (or authorized healthcare branch sales and service representative) that I reviewed their record and presented the opportunity for them to ask any questions regarding the visit today. The patient agreed to participate. History of Present Illness Reason for Consultation: encephalopathy Requesting Physician: Dr. Holland Biggs Attending Physician: Rosendo Pascal MD History of Present Illness 72 y/o left handed male that presented with intermittent confusion over the prior two days. He states that two days ago, it seemed that he started to be lethargic, and was experiencing difficulty staying awake. He had blamed this initially on Daylight Saving's time. His family also started to become concerned that he was lethargic. This has now resolved. He felt generally weak but denies any focal weakness. After his last stroke, he had right upper extremity numbness initially but this had resolved. However, on last , he noticed that the right upper extremity numbness had returned. He has felt that he was walking slow but denies any gait instability. He denies change in speech, vision changes, or dizziness. Allergies Allergy/AdvReac Type Severity Reaction Status Date / Time LORENE Inhibitors AdvReac Intermediate Cough Verified 07/12/23 01:02 sitagliptin [From Sepuvleonidas] AdvReac Intermediate COUGH-PER Verified 07/11/23 23:31 [facility] [place] Medications Medication Instructions Recorded Confirmed Type atorvastatin 40 mg tablet (Lipitor) 40 mg PO HS 11/09/18 07/11/23 History finasteride 5 mg tablet 5 mg PO DAILY #90 tabs 04/05/22 07/11/23 Rx glipizide 10 mg tablet, extended 10 mg PO DAILYBB 06/03/22 07/11/23 History release 24 hr lisinopril 40 mg tablet 40 mg PO DAILY 06/03/22 07/11/23 History pantoprazole 40 mg tablet,delayed 40 mg PO QAM #30 tabs 06/04/22 07/11/23 Rx release aspirin 81 mg tablet,delayed 81 mg PO DAILY 07/11/23 07/11/23 History release metformin 500 mg tablet 1,000 mg PO BIDM 07/11/23 07/11/23 History Patient History Medical History Leukocytosis Rectal bleeding Acute CVA (cerebrovascular accident) Stroke-like symptoms Hypertensive urgency Stroke-like symptoms Diabetes mellitus, type II Hyperlipidemia Hypertension Diabetes Surgical History No pertinent past surgical history Family History Mother Stroke Diabetes Brother Diabetes Father Cancer Fast spreading, small cell cancer, in three months Social History Smoking Status: Current some day smoker Tobacco Type: Cigarettes Age Started Using Tobacco: 18; Age Quit Using Tobacco: 44; packs per day: 2.5; Cigarettes Per Day: 45; Second Hand Exposure: No; Do You Dip or Chew Tobacco: No; Tobacco Cessation Education Requested by Patient: No Hx Alcohol Use: No Hx Substance Use: No Preferred Language: [place] Communication Ability: Effective Visual Impairment: No Limitations Hearing Ability: Hard of Hearing Manager Finance Required: No Beliefs That Will Affect Care: None marital status: Current Living Situation: Spouse current occupational status: retired current occupation: Retired from [employer], [employer] and [employer] How many Children do You have: 3 Other Information That Helps Us Care for You: No Feels Safe at Home: Yes Safety Concerns: Feels Safe At This Time Childhood Exposure to Second-Hand Smoke: Yes caffeine: Yes (coffee two cups daily) during the past year weight has: remained stable Dental Care, Regularly: Yes Physical Activity Frequency: 3-4 Times per Week Physical Activity Frequency Comment: yard work Seatbelt Use: always Sunscreen Use: Yes (intermittently, while at the beach) Assistive Devices: None Review of Systems Negative except as listed in HPI Physical Exam AAO X 3 No aphasia or dysarthria VFF EOMI, no nystagmus Facial sensations intact No facial asymmetry Tongue protrudes midline Motor: Moves all four extremities antigravity, no drift, no involuntary movements Sensation: Intact to light tough throughout Cerebellar: FTN and HTS intact NIHS 0 Results & Data Vital Signs (Past 12 Hours) Vital Signs Pulse Pulse Resp BP BP Pulse Ox Pulse Ox 07/12/23 06:10 72 15 94 07/12/23 06:00 57 L 15 96 07/12/23 06:00 164/98 H 07/12/23 05:50 67 13 91 07/12/23 05:40 56 L 17 92 07/12/23 05:30 149/92 H 07/12/23 05:30 62 15 93 07/12/23 05:23 58 L 16 161/102 H 93 07/12/23 05:20 57 L 16 92 07/12/23 05:10 161/102 H 07/12/23 05:10 69 15 95 07/12/23 05:09 65 21 96 07/12/23 04:50 59 L 15 92 07/12/23 04:40 57 L 14 94 07/12/23 04:30 55 L 14 96 07/12/23 04:30 146/90 H 07/12/23 04:20 53 L 14 94 07/12/23 04:10 66 13 91 07/12/23 04:02 56 L 16 150/94 H 94 07/12/23 04:02 95 07/12/23 04:00 58 L 15 93 07/12/23 04:00 150/94 H 07/12/23 03:50 62 16 91 07/12/23 03:41 58 L 16 94 07/12/23 03:41 163/90 H 07/12/23 03:40 70 16 07/12/23 03:30 57 L 17 93 07/12/23 03:20 73 19 94 07/12/23 03:10 61 17 93 07/12/23 03:00 59 L 16 93 07/12/23 03:00 152/83 H 07/12/23 03:00 60 17 152/83 H 94 07/12/23 02:50 60 17 94 07/12/23 02:40 65 18 95 07/12/23 02:36 166/100 H 07/12/23 02:36 63 19 94 07/12/23 02:35 78 07/12/23 01:49 70 19 96 07/12/23 01:30 64 21 95 07/12/23 01:30 152/108 H 07/12/23 01:20 65 19 97 07/12/23 01:18 168/107 H 07/12/23 01:18 65 20 95 07/12/23 01:10 64 17 95 07/12/23 01:08 63 07/12/23 01:00 60 17 95 07/12/23 01:00 61 18 168/107 H 96 07/12/23 00:50 59 L 18 98 07/12/23 00:40 59 L 17 97 07/12/23 00:30 59 L 18 94 07/12/23 00:20 63 20 95 07/12/23 00:10 63 18 96 07/12/23 00:00 63 21 95 07/11/23 23:50 61 17 94 07/11/23 23:40 57 L 17 94 07/11/23 23:34 152/100 H 07/11/23 23:34 64 16 07/11/23 23:00 60 17 152/100 H 94 07/11/23 22:37 07/11/23 22:20 65 19 93 07/11/23 22:10 66 18 93 07/11/23 22:00 62 17 96 07/11/23 21:50 72 18 94 07/11/23 21:40 67 19 93 O2 Del Method O2 Del Method O2 Flow Rate 07/12/23 06:10 07/12/23 06:00 07/12/23 06:00 07/12/23 05:50 07/12/23 05:40 07/12/23 05:30 07/12/23 05:30 07/12/23 05:23 Room Air 07/12/23 05:20 07/12/23 05:10 07/12/23 05:10 07/12/23 05:09 07/12/23 04:50 07/12/23 04:40 07/12/23 04:30 07/12/23 04:30 07/12/23 04:20 07/12/23 04:10 07/12/23 04:02 Room Air 07/12/23 04:02 Room Air 0 07/12/23 04:00 07/12/23 04:00 07/12/23 03:50 07/12/23 03:41 07/12/23 03:41 07/12/23 03:40 07/12/23 03:30 07/12/23 03:20 07/12/23 03:10 07/12/23 03:00 07/12/23 03:00 07/12/23 03:00 Room Air 07/12/23 02:50 07/12/23 02:40 07/12/23 02:36 07/12/23 02:36 07/12/23 02:35 07/12/23 01:49 07/12/23 01:30 07/12/23 01:30 07/12/23 01:20 07/12/23 01:18 07/12/23 01:18 07/12/23 01:10 07/12/23 01:08 07/12/23 01:00 07/12/23 01:00 Room Air 07/12/23 00:50 07/12/23 00:40 07/12/23 00:30 07/12/23 00:20 07/12/23 00:10 07/12/23 00:00 07/11/23 23:50 07/11/23 23:40 07/11/23 23:34 07/11/23 23:34 07/11/23 23:00 Room Air 07/11/23 22:37 Room Air 07/11/23 22:20 07/11/23 22:10 07/11/23 22:00 07/11/23 21:50 07/11/23 21:40 Laboratory Results WBC 7.95, HGB 14.0, HCT 40.0, Plts 190, INR 1.0, Na 135, Creatinine 1.03, Glucose 218, A1C 11, LDL 98, TSh 2.5001, urine nitrite negative, leukocyte esterase negative Diagnostic Findings CTH:There is no hemorrhage, mass effect, or evidence of acute territorial ischemia by CT criteria. MRI brain: 1. Small, acute infarct right basal ganglia and periventricular white matter. 2. No hemorrhage, hydrocephalus, or herniation. MRA head:1. No aneurysm or large vessel occlusion. Carotid Doppler: No hemodynamically significant stenosis seen within the carotid arteries. TTE: EF 55-60%, normal sized left atrium, no evidence of ASD or interatrial shunt (1) Stroke CVA mechanism: unspecified Qualified Code(s): I63.9 - Cerebral infarction, unspecified
--- NOTE | 2023-07-12 11:25 | Pharmacy Report ---
- Date of Service July 12, 2023 - Pharmacy CVA/TIA Medication Review Medications to Prevent Stroke handout has been added to the patients discharge packet. Antiplatelet(s) * Aspirin 81 mg PO daily * Clopidogrel 75 mg PO daily Cholesterol * High intensity statin: atorvastatin 80 mg daily DVT Prophylaxis * Enoxaparin SC Therapeutic Anticoagulation * No history of Afib/Aflutter noted Type 2 Diabetes * Patient has T2DM, but per Dr. Pascal, a diabetes medication with proven CVD benefit will be deferred to their outpatient provider due to familiarity with risks/benefits of such therapies. "Medications to prevent stroke" handout has already been added to the patient's discharge packet, which instructs the patient to follow up with their outpatient provider to evaluate which diabetes medication with proven CVD benefit is best for them
--- NOTE | 2023-07-12 15:57 | Electrocardiogram Report ---
Test Reason : Blood Pressure : / mmHG Vent. Rate : 073 BPM Atrial Rate : 073 BPM P-R Int : 148 ms QRS Dur : 088 ms QT Int : 344 ms P-R-T Axes : 026 045 119 degrees QTc Int : 378 ms Normal sinus rhythm Possible Inferior infarct (cited on or before 10-JUN-2022) Poor R wave progression, consider anterior MA vs. lead placement vs. LVH Abnormal ECG When compared with ECG of 10-JUN-2022 00:35, No significant change was found Confirmed by Gadiel Tirado ([id number]) on 07/12/2023 3:57:28 PM Referred By: REFERRED SELF Confirmed By:Gadiel Tirado
--- NOTE | 2023-07-12 16:24 | Communication Note ---
Date of Service: July 12, 2023 The patient was seen and examined in medical telemetry unit. He was admitted with right arm numbness and noted to have a small stroke and getting better with current treatment. He remains hemodynamically stable and a full Progress note will be done tomorrow. Dr Galo Pascal
[2023-07-12] MEDS ORDERED: LANTUS PER UNIT CHARGE SQ SCH (21:00)
[2023-07-12] MEDS ORDERED: ATORVASTATIN 40 MG TAB PO SCH (21:00)
[2023-07-12] MEDS: ATORVASTATIN 40 MG TAB PO SCH (21:24)
[2023-07-12] MEDS: LANTUS PER UNIT CHARGE SQ SCH (21:29)
[2023-07-13 07:01] LABS: Basophils # (auto) 0.02 K/uL (0.00-0.20); Basophils % (auto) 0.2 %; Eosinophils # (auto) 0.24 K/uL (0.00-0.50); Hemoglobin 14.4 g/dl (14.0-18.0); Immature Granulocytes # (auto) 0.03 K/uL (0.01-0.20); Immature Granulocytes % (auto) 0.4 %; Lymphocytes # (auto) 2.16 K/uL (1.20-3.40); Lymphocytes % (auto) 26.9 %; Mean Corpuscular Hemoglobin 28.1 pg (25.0-34.0); Mean Corpuscular Hgb Conc 35.1 g/dL (32.0-36.0); Mean Corpuscular Volume 80.1 fL (80.0-100.0); Monocytes # (auto) 0.56 K/uL (0.11-0.59); Neutrophils # (auto) 5.01 K/uL (1.40-6.50); Neutrophils % (auto) 62.5 %; Platelet Count 197 K/uL (130-400); RDW Coefficient of Variation 13.3 % (11.5-14.5); RDW Standard Deviation 38.3 fL (36.4-46.3); Red Blood Count 5.12 M/uL (4.70-6.10); White Blood Count 8.02 K/ul (4.8-10.8)
[2023-07-13 07:35] LABS: Magnesium 1.9 mg/dl (1.7-2.4); Potassium 3.8 mmol/L (3.5-5.1)
[2023-07-13 07:41] LABS: BUN Creatinine Ratio 17.7 (10-20); Est GFR (African American) 74.3 ml/min; Est GFR (Non-African American) 64.1 ml/min; Phosphorus 4.1 mg/dl (2.5-4.9)
[2023-07-13] MEDS: FINASTERIDE 5 MG TAB PO SCH (09:15)
[2023-07-13] MEDS: PANTOprazole 40 MG TAB PO SCH (09:15)
[2023-07-13] MEDS: CLOPIDOGREL BISULFATE 75 MG TAB PO SCH (09:16)
[2023-07-13] MEDS: ASPIRIN 81 MG ECTAB PO SCH (09:16)
[2023-07-13] MEDS: ENOXAPARIN INJ 40 MG/0.4 ML SYR SQ SCH (09:16)
[2023-07-13] MEDS: INSULIN ASPART PER UNIT CHARGE SC SCH ×4 (09:18→22:02)
[2023-07-13] MEDS: LOSARTAN POTASSIUM 50 MG TAB PO SCH (15:02)
[2023-07-13] MEDS: LANTUS PER UNIT CHARGE SQ SCH (22:02)
[2023-07-13] MEDS: ATORVASTATIN 40 MG TAB PO SCH (22:03)
[2023-07-14] MEDS: ENOXAPARIN INJ 40 MG/0.4 ML SYR SQ SCH (08:08)
[2023-07-14] MEDS: ASPIRIN 81 MG ECTAB PO SCH (08:08)
[2023-07-14] MEDS: CLOPIDOGREL BISULFATE 75 MG TAB PO SCH (08:08)
[2023-07-14] MEDS: LOSARTAN POTASSIUM 50 MG TAB PO SCH (08:09)
[2023-07-14] MEDS: FINASTERIDE 5 MG TAB PO SCH (08:09)
[2023-07-14] MEDS: PANTOprazole 40 MG TAB PO SCH (08:09)
[2023-07-14] MEDS: INSULIN ASPART PER UNIT CHARGE SC SCH (08:47)
--- NOTE | 2023-07-14 11:03 | Hospitalist Progress Note ---
Date of Service July 13, 2023 With the delayed note for 07/13/2023 Assessment & Plan (1) Encephalopathy: Plan: Small acute infarct right basal ganglia and periventricular white matter With transient apraxia symptoms-has been improving Appreciate neurology input and recommendation We will continue aspirin Plavix for 21 days and aspirin only following that Uncontrolled BP and hyperglycemia contributory to encephalopathy Permissive hypertension for now, change LORENE inhibitor to losartan if no stroke given LORENE inhibitor cough as per patient account Hyperlipidemia on statin Rx DM 2 on oral medications, suboptimal control as of last hemoglobin A1c of 8.8 last year Basal bolus insulin, ISS BG goal 1 10-1 40, carb count coverage, update hemoglobin A1c Hemoglobin A1c was noted to be more than 11 Dietitian has been consulted Prostate cancer, patient follows with [facility]ist past tobacco abuse PT OT eval DVT prophylaxis. Lovenox subcu Full code Patient requesting updates providers. Ms. Alicia Gar, contact #[phone]. Admission and Anticipated Discharge Date Admission Date: July 12, 2023 Subjective The patient was seen and examined in medical telemetry unit in presence of the He has been feeling much better and there is minimal numbness involving the right forearm Denies any other symptoms Noted to have uncontrolled diabetes with hemoglobin A1c more than 11 Will obtain diabetic teaching before discharge Review of Systems Review of Systems: All systems reviewed and are unremarkable except as noted below Physical Exam Physical Exam: Lying in bed comfortably Constitutional: well developed, well nourished, + ill appearing and + obese Eyes: PERRL, conjunctivae normal, anicteric sclerae ENMT: external ear and nose normal, oropharynx normal Neck: trachea midline, no thyromegaly Respiratory: no respiratory distress Auscultation: lungs clear to auscultation bilaterally Cardiovascular: Rate/Rhythm: regular rate and regular rhythm; not tachycardic Heart Sounds: normal S1 and normal S2; no murmur Extremities: no edema Gastrointestinal (Abdomen): Inspection/Auscultation: normal bowel sounds; abd omen not distended Percussion/Palpation: abdomen soft; abdomen nontender Musculoskeletal: No acute arthritis involving any of the joints Neurologic: Minimal numbness involving the right forehead but no other neurological deficit Lymphatic: no cervical or axillary lymphadenopathy Results & Data Results & Data Vital Signs (Past 12 Hours) Vital Signs Temp Pulse Pulse Resp BP Pulse Ox O2 Del Method 07/14/23 07:42 36.6 C 61 18 156/91 H 92 Room Air 07/14/23 07:41 56 L 07/14/23 04:00 36.5 C 55 L 18 152/83 H 94 Room Air 07/14/23 00:00 36.5 C 57 L 18 162/89 H 95 Room Air
--- NOTE | 2023-07-14 11:13 | Hospitalist Progress Note ---
Date of Service July 14, 2023 Assessment & Plan (1) Stroke: Plan: Small acute infarct right basal ganglia and periventricular white matter With transient apraxia symptoms-has been improving Appreciate neurology input and recommendation We will continue aspirin Plavix for 21 days and aspirin only following that (2) Encephalopathy: Plan: Presented with acute confusion likely multifactorial Hyperglycemia, high blood pressure, acute stroke Metabolic and cephalopathy in which cleared subsequently (3) Diabetes mellitus, type II: Plan: DM 2 on oral medications, suboptimal control as of last hemoglobin A1c of 8.8 last year Basal bolus insulin, ISS BG goal 1 10-1 40, carb count coverage, update hemoglobin A1c Hemoglobin A1c was noted to be more than 11 Dietitian has been consulted (4) Hypertensive urgency: Plan: Uncontrolled BP and hyperglycemia contributory to encephalopathy Permissive hypertension for now, change LORENE inhibitor to losartan if no stroke given LORENE inhibitor cough as per patient account (5) Hyperlipidemia: (6) Prostate cancer: (7) History of CVA (cerebrovascular accident): Plan Hyperlipidemia on statin Rx Prostate cancer, patient follows with [facility] past tobacco abuse PT OT eval DVT prophylaxis. Lovenox subcu Full code Patient requesting updates providers. Ms. Alicia Gar, contact #[phone]. Admission and Anticipated Discharge Date Admission Date: July 12, 2023 Subjective The patient was seen and examined in medical telemetry unit in presence of the He has been feeling much better and there is minimal numbness involving the right forearm Denies any other symptoms Noted to have uncontrolled diabetes with hemoglobin A1c more than 11 Will obtain diabetic teaching before discharge 07/14/2023 The patient was seen and examined in medical telemetry unit He has been feeling much better and denies any more neurological symptoms His right forearm numbness is cleared Denies any other neurodeficit Review of Systems Review of Systems: All systems reviewed and are unremarkable except as noted below Physical Exam Physical Exam: Lying in bed comfortably Constitutional: well developed, well nourished, + ill appearing and + obese Eyes: PERRL, conjunctivae normal, anicteric sclerae ENMT: external ear and nose normal, oropharynx normal Neck: trachea midline, no thyromegaly Respiratory: no respiratory distress Auscultation: lungs clear to auscultation bilaterally Cardiovascular: Rate/Rhythm: regular rate and regular rhythm; not tachycardic Heart Sounds: normal S1 and normal S2; no murmur Extremities: no edema Gastrointestinal (Abdomen): Inspection/Auscultation: normal bowel sounds; abdomen not distended Percussion/Palpation: abdomen soft; abdomen nontender Musculoskeletal: No acute arthritis involving any of the joint Neurologic: normal touch/pain/proprioception and moves all extremities; no focal motor deficits Psychiatric: A+Ox3, euthymic affect Lymphatic: no cervical or axillary lymphadenopathy Results & Data Results & Data Vital Signs (Past 12 Hours) Vital Signs Temp Pulse Pulse Resp BP Pulse Ox O2 Del Method 07/14/23 07:42 36.6 C 61 18 156/91 H 92 Room Air 07/14/23 07:41 56 L 07/14/23 04:00 36.5 C 55 L 18 152/83 H 94 Room Air 07/14/23 00:00 36.5 C 57 L 18 162/89 H 95 Room Air Medications Administered Current Inpatient Medications Acetaminophen (Acetaminophen 325 Mg Tab) 650 mg PO Q4H PRN PRN Reason: Pain or Fever Stop: 08/11/23 04:01 Aspirin (Aspirin 81 Mg Ectab) 81 mg PO DAILY JAKI Stop: 08/11/23 08:59 Last Admin: 07/14/23 08:08 Dose: 81 mg Atorvastatin Calcium (Atorvastatin 40 Mg Tab) 80 mg PO HS JAKI Stop: 08/11/23 20:59 Last Admin: 07/13/23 22:03 Dose: 80 mg Clopidogrel Bisulfate (Clopidogrel Bisulfate 75 Mg Tab) 75 mg PO QAM JAKI Stop: 08/12/23 08:59 Last Admin: 07/14/23 08:08 Dose: 75 mg Dextrose (Dextrose 50% 50 Ml Syringe) 25 - 50 ml IV UD PRN; Protocol PRN Reason: Hypoglycemia Protocol Stop: 08/11/23 00:20 Enoxaparin Sodium (Enoxaparin Inj 40 Mg/0.4 Ml Syr) 40 mg SQ QAM JAKI Stop: 08/11/23 08:59 Last Admin: 07/14/23 08:08 Dose: 40 mg Finasteride (Finasteride 5 Mg Tab) 5 mg PO DAILY JAKI Stop: 08/11/23 08:59 Last Admin: 07/14/23 08:09 Dose: 5 mg Glucagon (Glucagon For Inj 1 Mg Vial) 1 mg SQ UD PRN; Protocol PRN Reason: Hypoglycemia Protocol Stop: 08/11/23 00:20 Glucose (Glucose 10 Tab/Tube) 4 - 8 tab PO UD PRN; Protocol PRN Reason: Hypoglycemia Treatment Stop: 08/11/23 00:20 Glucose (Glucose 40% Gel 15 Gm Tube) 15 - 30 gm PO UD PRN; Protocol PRN Reason: Hypoglycemia Protocol Stop: 08/11/23 00:20 Promethazine HCl 6.25 mg/ (Sodium Chloride) 50.25 mls @ 201 mls/hr IV Q6H PRN PRN Reason: Nausea And Vomiting Stop: 08/11/23 01:03 Insulin Aspart (Insulin Aspart Per Unit Charge) 0 units SC ACHS [facility] Stop: 08/11/23 00:24 Last Admin: 07/14/23 08:47 Dose: 2 units Insulin Glargine (Lantus Per Unit Charge) 20 units SQ DAILYBB [facility] Stop: 08/14/23 06:29 Losartan Potassium (Losartan Potassium 50 Mg Tab) 50 mg PO QAM [facility] Stop: 08/12/23 13:29 Last Admin: 07/14/23 08:09 Dose: 50 mg Miscellaneous (Carbohydrates For Hypoglycemia ) 15 - 30 gm PO UD PRN PRN Reason: Hypoglycemia Protocol Stop: 08/11/23 00:20 Pantoprazole Sodium (Pantoprazole 40 Mg Tab) [facility] [place] [facility] [place]: 08/11/23 08:59 Last Admin: 07/14/23 08:09 Dose: 40 mg (1) Stroke CVA mechanism: unspecified Qualified Code(s): I63.9 - Cerebral infarction, unspecified (3) Diabetes mellitus, type II Diabetes mellitus fdc insulin use: unspecified long filler cigar roller machine insulin use status Diabetes mellitus complication status: without complication Qualified Code(s): E11.9 - Type 2 diabetes mellitus without complications (5) Hyperlipidemia Hyperlipidemia type: other hyperlipidemia Qualified Code(s): E78.49 - Other hyperlipidemia; E78.4 - Other hyperlipidemia
--- NOTE | 2023-07-14 17:01 | Discharge Summary ---
Date of Service July 14, 2023 Admission HPI Per Admitting Provider History obtained from patient, family, and records. Medical history significant for hypertension, hyperlipidemia, CVA, DM 2 on oral medications, prostate cancer, past tobacco abuse. Last confinement June 2022 for acute diverticulitis status post antibiotic Rx. Patient aspirin temporarily held during confinement due to bleeding and subsequently resumed outpatient. Patient noted to be confused as per the last couple of days. Somewhat tired and sleepy. Patient could not figure out how to use TV remote control. Patient not sure if patient taking his home medications due to confusion. Patient denies chest pain, SOB, headache symptoms, abdominal pain. Chronic cough symptoms attributed to LORENE inhibitor as per . Highest SBP of 170s documented at the ER. Patient feeling much better upon arrival at the ER. Medical History as above Surgical History : prostate biopsy Family History : DM, stroke Personal/Social history : Past tobacco abuse, occasional EtOH intake, retired factory employee/business systems advisor Admission Exam Per Admitting Provider Physical Exam: GENERAL: Comfortable, oriented to day and year, pleasant, no respiratory distress SKIN: Normal color, warm HEENT: [place] palpebral conjunctivae, no ptosis, dry buccal mucosa NECK : Supple, no tenderness CHEST : Decreased breath sounds, scattered expiratory wheezes (chronic as per patient), no tenderness HEART : RRR, no obvious murmurs ABDOMEN: Some distention, nontender EXTREMITIES : No LE swelling/tenderness, no other conspicuous deformities noted NEUROLOGIC : Coherent, no facial asymmetry, gait and stance not assessed Principal Diagnosis Acute stroke, metabolic and cephalopathy-improved, uncontrolled diabetes, hypertension Discharge Exam Lying in bed comfortably Constitutional well developed, well nourished, + ill appearing and + obese Eyes PERRL, conjunctivae normal, anicteric sclerae ENMT external ear and nose normal, oropharynx normal Neck trachea midline, no thyromegaly Respiratory no respiratory distress Auscultation: lungs clear to auscultation bilaterally Cardiovascular Rate/Rhythm: regular rate and regular rhythm; not tachycardic Heart Sounds: normal S1 and normal S2; no murmur Extremities: no edema Gastrointestinal (Abdomen) Inspection/Auscultation: normal bowel sounds; abdomen not distended Percussion/Palpation: abdomen soft; abdomen nontender Neurologic normal touch/pain/proprioception and moves all extremities; no focal motor deficits Psychiatric A+Ox3, euthymic affect Lymphatic no cervical or axillary lymphadenopathy Discharge Data Allergies Allergy/AdvReac Type Severity Reaction Status Date / Time LORENE Inhibitors AdvReac Intermediate Cough Verified 07/12/23 01:02 sitagliptin [From Sepuvia] AdvReac Intermediate COUGH-PER Verified 07/11/23 23:31 GMG Consultations 07/11/23 23:34 ED Decision to Admit Stat 07/12/23 04:11 Consult Neurology Routine Ordered Studies 07/11/23 20:28 CT head/brain wo con Stat 07/12/23 00:58 MR angio head wo con Urgent 07/12/23 00:58 MR brain wo con Urgent 07/12/23 04:11 Carotid duplex [US carotid doppler BI] Routine Diabetes Follow up Diabetes Follow-up Needed for HgbA1c >9% Hospital Course (1) Stroke: Small acute infarct right basal ganglia and periventricular white matter With transient apraxia symptoms-has been improving Appreciate neurology input and recommendation We will continue aspirin Plavix for 21 days and aspirin only following that (2) Encephalopathy: Presented with acute confusion likely multifactorial Hyperglycemia, high blood pressure, acute stroke Metabolic and cephalopathy in which cleared subsequently (3) Diabetes mellitus, type II: DM 2 on oral medications, suboptimal control as of last hemoglobin A1c of 8.8 last year Basal bolus insulin, ISS BG goal 1 10-1 40, carb count coverage, update hemoglobin A1c Hemoglobin A1c was noted to be more than 11 Dietitian has been consulted (4) Hypertensive urgency: Uncontrolled BP and hyperglycemia contributory to encephalopathy Permissive hypertension for now, change LORENE inhibitor to losartan if no stroke given LORENE inhibitor cough as per patient account (5) Hyperlipidemia: (6) Prostate cancer: (7) History of CVA (cerebrovascular accident): Plan Hyperlipidemia on statin Rx Prostate cancer, patient follows with [facility] past tobacco abuse PT OT eval DVT prophylaxis. Lovenox subcu Full code Patient requesting updates providers. Ms. Alicia Gar, contact #[phone]. Total Time Total Time Spent Total Time Spent (In Minutes): 40 minutes Discharge Plan Discharge Items Patient Disposition: Home - Self-Care Reason For Visit: AMS Discharge Diagnosis: Acute stroke, metabolic and cephalopathy-improved, uncontrolled diabetes, hypertension Condition on Discharge: Good Activity: Resume your previous activity Non-emergency contact: Primary Care Provider Call non-emergency contact if: you have any medication questions and your symptoms worsen Follow-up/Referrals: Lawanda Larsen PA-C [Physician [employer]bm [employer] Architect] - 09/19/23 11:20 am (Date & Time 09/19/2023 11:20 AM Provider Lawanda Larsen PA-C Department Neurology [facility] ) Fabian Cox DO [Primary Care Provider] - (Date & Time 07/21/2023 1:40 PM Provider Fabian Cox DO Department Family Practice [facility] ) Diet: Carb Consistent or DM2 Addtl Attending Provider Instructions: Please take precautions to avoid falls Follow the diabetic diet and take your insulin as advised Keep a record of your blood sugar and show it to your PCP during next visit Need to have a follow-up appointment with neurologist in about 4 to 6 weeks Continue with the Plavix and aspirin for 21 days in total and then continue with only aspirin Pending Studies at Discharge: No Stand-Alone Forms: My [facility] [employer], Smoking Cessation Medications and DC Order Prescriptions: New losartan 50 mg Tablet 50 mg PO QAM Qty: 30 0RF atorvastatin 40 mg Tablet 80 mg PO HS Qty: 60 0RF clopidogrel 75 mg Tablet 75 mg PO QAM Qty: 20 0RF insulin glargine 100 unit/mL (3 mL) insulin pen 20 unit subcut QAM Qty: 15 0RF (DME) pen needle, diabetic 32 gauge x 5/32" needle See Rx Instructions .Route Qty: 100 0RF Rx Instructions: As directed (DME) OneTouch Verio test strips Strip See Rx Instructions .Route Qty: 100 0RF Rx Instructions: As directed (DME) lancets 33 gauge misc See Rx Instructions .Route Qty: 100 0RF Rx Instructions: As directed Continued aspirin 81 mg Tablet,Delayed Release (Dr/Ec) 81 mg PO DAILY metformin 500 mg tablet 1,000 mg PO BIDM Qty: 60 0RF pantoprazole 40 mg Tablet,Delayed Release (Dr/Ec) 40 mg PO QAM Qty: 30 0RF Rx Instructions: PER EXT MED HX & SPOUSE, "NOT FILLED FOR A YEAR". finasteride 5 mg tablet 5 mg PO DAILY Qty: 30 1RF Rx Instructions: PER EXT MED HX & SPOUSE, "NOT FILLED FOR A WHILE". Discontinued atorvastatin [Lipitor] 40 mg tablet 40 mg PO HS glipizide 10 mg tablet extended release 24hr 10 mg PO DAILYBB lisinopril 40 mg tablet 40 mg PO DAILY Discharge Orders: Discharge Order (Routine); Ordered 07/14/23 Ordered By: Rosendo Matos/Other Patient Handouts: High Blood Sugar (Hyperglycemia), Managing Type 2 Diabetes Admission Data Admit Date/Time: 07/12/23 00:56 Attending Provider: Rosendo Pascal Admit Provider: Holland Biggs Primary Care Provider: Fabian Cox Other Providers: Holland Biggs; Lawanda Larsen; Artemio Babin; Lawanda Montiel; Michael Flaherty; Allan Chatterjee; Vic Salgado; Jelani Gayle; Seema García; Lamin Larios; Pipo Weeks; Isabelle Cannon; Jaguar Garcia; Yudi Crocker; Maryam Prabhakar Other Interventions: Discharge Summary Assessment (RN) Last Done: 07/14/23 12:46
[2023-07-15] MEDS ORDERED: LANTUS PER UNIT CHARGE SQ SCH (06:30)
--- OUTSIDE RECORDS SUMMARY | 2023-07-16 08:05 | External Medical Summary | Summary of Care ---
Author Name Unknown Organization [facility] Address [address] [facility] [place] [address] Phone [phone] Care Team Providers Care Signal Fitter Name Role Phone Fabian Cox DO Primary Care Provider [phone] Reason for Visit * Reason Onset Date Comments Health Maintenance 01/17/2023 Encounter Details Date Type Department Care Team Description 01/17/2023 Telephone Family Practice [facility] [address] [place] [address] Fabian Cox DO [address] [place] [address] Health Maintenance Allergies Active Allergy Reactions Severity Noted Date Comments Sitagliptin Cough Low 09/19/2016 documented as of this encounter (statuses as of 01/17/2023) Medications Medication Sig Dispensed Refills Start Date End Date Status Aspirin 81 MG Tablet DAILY IN THE MORNING 0 11/11/2018 Active Glucose Blood (ONETOUCH ULTRA BLUE) STRP TEST once daily as directed 300 Strip 2 12/10/2018 Active Blood Glucose Monitoring Suppl (FREESTYLE LITE) KAREEM USE ONCE DAILY DIRECTED. DIAGNSOIS E11.9 NON INSULIN DEPENDENT 1 Device 0 12/26/2018 Active Glucose Blood (FREESTYLE LITE TEST) STRP USE ONCE DAILY DIRECTED. DIAGNSOIS E11.9 NON INSULIN DEPENDENT 300 Strip 2 12/26/2018 Active FREESTYLE LANCETS MISC USE ONCE DAILY DIRECTED. DIAGNSOIS E11.9 NON INSULIN DEPENDENT 3 Box Dosing Unit 2 12/26/2018 Active Tamsulosin HCl 0.4 MG Oral Capsule (Flomax) Take 0.4 mg by mouth daily. 0 Active Finasteride 5 MG Oral Tablet (Proscar) 0 09/30/2021 Active Atorvastatin Calcium 40 MG Oral Tablet (Lipitor)Indication s:Hyperlipidemia with target LDL less than 70 take 1 tablet by mouth daily 90 Tablet 2 04/05/2022 Active metFORMIN HCl 500 MG Oral Tablet (Glucophage)Indicat ions:Type 2 diabetes mellitus with hemoglobin A1c goal of less than 7.0% (HCC) take 2 tablets by mouth before breakfast and 2 tablets AT EVENING MEAL 360 Tablet 2 04/05/2022 Active Lisinopril 40 MG Oral TabletIndications:E ssential hypertension with goal blood pressure less than 140/90 Take by mouth 1 Tablet in the morning. 90 Tablet 3 07/08/2022 Active Pantoprazole Sodium 40 MG Oral Tablet Delayed Release (Protonix) Take by mouth 1 Tablet in the morning. 30 min before breakfast. 30 Tablet 5 07/08/2022 Active glipiZIDE ER 10 MG Oral Tablet Extended Release 24 Hour (Glucotrol XL)Indications:Type 2 diabetes mellitus with hemoglobin A1c goal of less than 7.0% (HCC) take 1 tablet by mouth every morning 30 MINUTES BEFORE A MEAL 90 Tablet 3 01/04/2023 Active documented as of this encounter (statuses as of 01/17/2023) Active Problems Problem Noted Date Prostate cancer 11/22/2021 Hyperlipidemia with target LDL less than 70 01/13/2020 Cerebrovascular disease, arterioscleroti c, post-stroke 12/12/2018 Essential hypertension with goal blood p ressure less than 140/90 01/18/2016 Type 2 diabetes mellitus with hemoglobin A1c goal of less than 7.0% 11/15/2011 Overview: ICD-10 update of inactive term History of colonic polyps 11/02/2011 Overview: 12/25/14: normal repeat in 5 years recommended. 11/02/11: 3 adenomas, repeat one year ICD-10 update of inactive term documented as of this encounter (statuses as of 01/17/2023) Resolved Problems Problem Noted Date Resolved Date Dyslipidemia, goal LDL below 100 07/31/2019 01/13/2020 HTN, goal below 140/90 10/16/2015 6 Lipoma of skin 10/27/2011 07/31/2019 FAM HX-DIABETES MELLITUS mother 12/10/2001 11/23/2018 FAM HX-Hypertension father 12/10/200111/23 documented as of this encounter (statuses as of 01/17/2023) Immunizations Name Administration Dates Next Due PPD 10/27/2011 Pneumococcal Conjugate Vacc, 13 Valent (Prevnar) 09/19/2016 Pneumococcal Polysaccharide PPV23 (Pneumovax) ,12/28/2011 TDAP (age 11 and older)(Adacel) 10/27/2011 documented as of this encounter Social History Tobacco Use Types Packs/Day Years Used Date Smoking Tobacco: Former Cigarettes 1 30 Q uit: 09/04/1991 Smokeless Tobacco: Current Chew Comments:1 can per week Alcohol Use Standard Drinks/Week Comments Yes 3 (1 standard drink = 0.6 oz pur e alcohol) rarely Sex Assigned at Date Recorded Not on file Job Start Date Occupation Industry Not on file Not on file Not on file documented as of this encounter Miscellaneous Notes * Telephone Encounter - Ursula Hill LPN - 01/17/2023 11:37 AM EDT Care Gaps Comprehensive Care Outreach Last Office/Telemedicine Visit: 07/08/2022 (in office), 01/13/2020 (telemedicine) Next Office Visit: Visit date not found Hemoglobin AIC Results: Lab Results Component Value Date/Time HEMOGLOBIN A1C - [facility] 8.8 (H) 05/23/2022 08:23 AM HEMOGLOBIN A1C - [facility] 7.6 (H) 11/19/2021 09:05 AM HEMOGLOBIN A1C - [facility] 7.9 (H) 02/19/2021 08:56 AM HEMOGLOBIN A1C - [facility] 7.2 (H) 01/23/2020 10:19 AM HEMOGLOBIN A1C - [facility] 7.1 (H) 07/29/2019 08:23 AM HEMOGLOBIN A1C - [facility] 7.6 (H) 09/21/2018 11:26 AM Reviewed Health Maintenance below: Health Maintenance Topic Date Due COVID-19 Vaccine (1) Never done Zoster Vaccines (1 of 2) Never done Depression Screening, Annual for Pts 12 and Over 01/17/2017 DTaP,Tdap,and Td Vaccines (2 - Td or Tdap) 10/27/2021 DIABETES-EYE EXAM 12/12/2021 DIABETES-FOOT EXAM 05/18/2022 Albumin/Creatinine Ratio 11/19/2022 HgA1C 11/20/2022 Colorectal Cancer Screening 12/25/2022 Influenza Vaccine (FLU shot) (Season Ended) 2023 Yearly B-12 05/23/2023 GFR - Renal Function 07/08/2023 Eye Foot Urine/labs already ordered Colon 10 year ov Care Gap Outreach Action Taken: Left message documented in this encounter Plan of Treatment Health Maintenance Due Date Last Done Comments COVID-19 Vaccine (#1) 03/27/1951 Cologuard 1994 Fecal Occult Blood Test 1994 Sigmoidoscopy 1994 Zoster Vaccines (1 of 2) 1999 Depression Screening, Annual for Pts 12 and Over 01/17/2017 01/18/2016 DTaP,Tdap,and Td Vaccines (2 - Td or Tdap) 10/27/2021 10/27/2011 DIABETES-EYE EXAM 12/12/2021 12/12/2020, , 10/25/2012 (Done elsewhere), Additional history exists DIABETES-FOOT EXAM 05/18/2022 05/18/2021, 0 09/28/2017, 01/18/2016, Additional history exists Albumin/Creatinine Ratio 11/19/2022 022, 09/28/2017, 09/19/2016, Additional history exists HgA1C 11/20/2022 05/23/2022, 11/02, 02/19/2021, Additional history exists Colonoscopy 12/25/2022 12/25/2012, 12/04, 11/02/2011 Colorectal Cancer Screening 12/25/2022 Influenza Vaccine (FLU shot) (Season Ended) 2023 07/24/2002 Yearly B-12 05/23/2023 05/23/2022, 02/02, 01/23/2020, Additional history exists GFR - Renal Function 07/08/2023 07/08/2022, 11/19/2021, 02/19/2021, Additional history exists Pneumococcal Vaccine: 65+ Years Completed 09/28/2017, 09/19/2016, 12/28/2011 ABDOMINAL AORTIC ANEURYSM (AAA) SCREENING Completed 09/09/2019 GARDASIL-HPV IMMUNIZATION SERIES Aged Out No longer eligible based on patient's age to complete this topic Hepatitis B Aged Out No longer eligi ble based on patient's age to complete this topic MENINGOCOCCAL (MENACTRA/MENVEO) Aged Out No longer eligible based on patient's age to complete this topic documented as of this encounter Medical Devices Not on filedocumented as of this encounter Care Teams Signal Fitter Relationship Specialty Start Date End Date Fabian Cox, DO [address] [place] [address] PCP - General Family Medicine 01/18/16 documented as of this encounter
--- OUTSIDE RECORDS SUMMARY | 2023-07-16 08:05 | External Medical Summary | Summary of Care ---
Author Name Unknown Organization [facility] [address] [facility] [address] Phone [phone] Care Team Providers Care Barrel Liner Name Role Phone Fabian Cox DO Primary Care Provider [phone] Encounter Details Date Type Department Care Team Description 06/19/2023 Orders Only Family Practice [facility] [place] [address] [place] [address] Fabian Cox DO [address] [place] [address] Allergies Active Allergy Reactions Severity Noted Date Comments Sitagliptin Cough Low 09/19/2016 documented as of this encounter (statuses as of 06/19/2023) Medications Medication Sig Dispensed Refills Start Date [...] MG Oral Tablet (Proscar) 0 09/30/2021 Active Lisinopril 40 MG Oral TabletIndications:E ssential [...] A MEAL 90 Tablet 3 01/04/2023 Active metFORMIN HCl 500 MG Oral Tablet (Glucophage)Indicat ions:Type 2 diabetes mellitus with hemoglobin A1c goal of less than 7.0% (HCC) take 2 tablets by mouth before breakfast and 2 tablets AT EVENING MEAL 360 Tablet 0 04/21/2023 Active Atorvastatin Calcium 40 MG Oral Tablet (Lipitor)Indication s:Hyperlipidemia with target LDL less than 70 take 1 tablet by mouth once daily 90 Tablet 0 04/21/2023 Active documented as of this encounter (statuses as of 06/19/2023) Active Problems Problem Noted Date Prostate cancer [...] as of this encounter (statuses as of 06/19/2023) Resolved Problems Problem Noted Date Resolved Date Dyslipidemia, goal LDL below 100 07/31/2019 01/13/2020 HTN, goal below 140/90 10/16/2015 05 6 Lipoma of skin 10/27/2011 07/31/2019 FAM HX-DIABETES MELLITUS mother 12/10/2001 11/23/2018 FAM HX-Hypertension father 12/10/200111/23 documented as of this encounter (statuses as of 06/19/2023) Immunizations Name Administration Dates Next Due PPD [...] on file documented as of this encounter Plan of Treatment Health Maintenance Due Date Last Done Comments COVID-19 Vaccine (#1) 03/27/1951 Cologuard 1994 Fecal Occult Blood Test 1994 Sigmoidoscopy 1994 Zoster Vaccines (1 of 2) 1999 Depression Screening 01/17/2017 01/18/2016 DTaP,Tdap,and Td Vaccines (2 - Td or Tdap) 10/27/2021 10/27/2011 Diabetic Foot Exam 05/18/2022 05/18/2021, 0 09/28/2017, 01/18/2016, Additional history exists Albumin/Creatinine Ratio 11/19/2022 022, 09/28/2017, 09/19/2016, Additional history exists HbA1c 11/20/2022 05/23/2022, 11/02, 02/19/2021, Additional history exists Colonoscopy 12/25/2022 12/25/2012, 12/04, 11/02/2011 Colorectal Cancer Screening 12/25/2022 Influenza Vaccine (FLU shot) (#1) 2023 07/24/2002 B-12 05/23/2023 05/23/2022, 02/02, 01/23/2020, Additional history exists GFR 07/08/2023 07/08/2022, 11/02, 02/19/2021, Additional history exists DIABETES-EYE EXAM 06/19/2024 06/16/2023, , 10/18/2019, Additional history exists Pneumococcal Vaccine: 65+ Years Completed 09/28/2017, 09/19/2016, 12/28/2011 AAA Screening Completed 09/09/2019 GARDASIL-HPV IMMUNIZATION SERIES Aged Out No longer eligible based on patient's age to complete this topic Hepatitis B Aged Out No longer eligi ble based on patient's age to complete this topic MENINGOCOCCAL (MENACTRA/MENVEO) Aged Out No longer eligible based on patient's age to complete this topic documented as of this encounter Medical Devices Not on filedocumented as of this encounter Procedures Procedure Name Priority Date/Time Associated Diagnosis Comments DIABETIC EYE EXAM Routine 06/16/2023 documented in this encounter Results * DIABETIC EYE EXAM (06/16/2023) 06/16/2023 History Per Patient OTHER OUTSIDE LAB (SEE SCANNED REPORT) documented in this encounter Care Teams Barrel Liner Relationship Specialty Start Date End Date Fabian Cox, DO [address] [place] [address] PCP - General Family Medicine 01/18/16 documented as of this encounter
--- OUTSIDE RECORDS SUMMARY | 2023-07-16 08:05 | External Medical Summary | Summary of Care ---
Author Name Unknown Organization [facility] Address [address] [place] [facility] [place] [address] Phone [phone] Care Team Providers Care Salesperson Furniture Name Role Phone Neil Friedman DO Primary Care Provider [phone] Reason for Visit * Reason Comments eRx-Medication Refill Encounter Details Date Type Department Care Team Description 01/24/2023 Refill Family Practice [facility] [place] [address] [place] [address] Neil Friedman DO [address] [facility] [place] [address] Hyperlipidemia with target LDL less than 70 Allergies Active Allergy Reactions Severity Noted Date Comments Sitagliptin Cough Low 09/19/2016 documented as of this encounter (statuses as of 01/25/2023) Medications Medication Sig Dispensed Refills Start Date [...] MG Oral Tablet (Proscar) 0 09/30/2021 Active metFORMIN HCl 500 MG Oral Tablet (Glucophage)Indic ations:Type 2 diabetes mellitus with hemoglobin A1c goal of less than 7.0% (HCC) take 2 tablets by mouth before breakfast and 2 tablets AT EVENING MEAL 360 Tablet 2 04/05/2022 Active Lisinopril 40 MG Oral TabletIndications :Essential hypertension with goal blood pressure less than 140/90 Take by mouth 1 Tablet in the morning. 90 Tablet 3 07/08/2022 Active Pantoprazole Sodium 40 MG Oral Tablet Delayed Release (Protonix) Take by mouth 1 Tablet in the morning. 30 min before breakfast. 30 Tablet 5 07/08/2022 Active glipiZIDE ER 10 MG Oral Tablet Extended Release 24 Hour (Glucotrol XL)Indications:Ty pe 2 diabetes mellitus with hemoglobin A1c goal of less than 7.0% (HCC) take 1 tablet by mouth every morning 30 MINUTES BEFORE A MEAL 90 Tablet 3 01/04/2023 Active Atorvastatin Calcium 40 MG Oral Tablet (Lipitor)Indicati ons:Hyperlipidemi a with target LDL less than 70 take 1 tablet by mouth daily 90 Tablet 0 01/25/2023 Active Atorvastatin Calcium 40 MG Oral Tablet (Lipitor)Indicati ons:Hyperlipidemi a with target LDL less than 70 take 1 tablet by mouth daily 90 Tablet 2 04/05/2022 3 Discontinued documented as of this encounter (statuses as of 01/25/2023) Active Problems Problem Noted Date Prostate cancer [...] as of this encounter (statuses as of 01/25/2023) Resolved Problems Problem Noted Date Resolved Date Dyslipidemia, goal LDL below 100 07/31/2019 01/13/2020 HTN, goal below 140/90 10/16/2015 6 Lipoma of skin 10/27/2011 07/31/2019 FAM HX-DIABETES MELLITUS mother 12/10/2001 11/23/2018 FAM HX-Hypertension father 12/10/200111/23 documented as of this encounter (statuses as of 01/25/2023) Immunizations Name Administration Dates Next Due PPD [...] encounter Miscellaneous Notes * Telephone Encounter - Renetta Chacon RPh - 01/25/2023 10:48 AM EDTSigned Prescriptions: Disp Refills Atorvastatin Calcium 40 MG Oral Tablet (Li*90 Tab*0 Sig: take 1 tablet by mouth dailyAuthorizing Provider: NEIL FRIEDMAN User: RENETTA CHACON------- * Telephone Encounter - Renetta Chcaon RPh - 01/25/2023 10:47 AM EDT Provided 90 day supply, patient due for lipid panel, ordered previously and patient contacted earlier this month regarding labs needed. Thanks, Renetta Chacon Rph, Pharm D. Clinical Pharmacist Telepharmacy/[facility] [phone] 01/25/2023,10:48 AM documented in this encounter Plan of Treatment [...] 07/08/2023 07/08/2022, 11/02, 02/19/2021, Additional history exists Pneumococcal Vaccine: 65+ [...] Not on filedocumented as of this encounter Visit Diagnoses Diagnosis Hyperlipidemia with target LDL less than 70 Other and unspecified hyperlipidemia documented in this encounter Care Teams Salesperson Furniture Relationship Specialty Start Date End Date Neil Friedman, DO [address] [place] [address] PCP - General Family Medicine 01/18/16 documented as of this encounter
--- OUTSIDE RECORDS SUMMARY | 2023-07-16 08:05 | External Medical Summary | Summary of Care ---
Author Name Unknown Organization [facility] Address [address] [place] [facility] [place] [place] [place] [address] Phone [phone] Care Team Providers Care Spot Welder Body Assembly Name Role Phone Fabian Cox DO Primary Care Provider [phone] Reason for Visit * Reason Comments eRx-Medication Refill Encounter Details Date Type Department Care Team Description 04/20/2023 Refill Family Practice [facility] [address] [facility] [place] [address] Fabian Cox DO [address] [facility] [place] [address] Essential hypertension with goal blood pressure less than 140/90*; Type 2 diabetes mellitus with hemoglobin A1c goal of less than 7.0% ([facility]); Hyperlipidemia with target LDL less than 70; Encounter for long-term (current) use of medications; Encounter for vitamin deficiency screening Allergies Active Allergy Reactions Severity Noted Date Comments Sitagliptin Cough Low 09/19/2016 documented as of this encounter (statuses as of 04/21/2023) Medications Medication Sig Dispensed Refills Start Date [...] 0 09/30/2021 Active Lisinopril 40 MG Oral TabletIndications :Essential [...] once daily 90 Tablet 0 04/21/2023 Active metFORMIN HCl 500 MG Oral Tablet (Glucophage)Indic ations:Type 2 diabetes mellitus with hemoglobin A1c goal of less than 7.0% (HCC) take 2 tablets by mouth before breakfast and 2 tablets AT EVENING MEAL 360 Tablet 2 04/05/2022 3 Discontinued Atorvastatin Calcium 40 MG Oral Tablet (Lipitor)Indicati ons:Hyperlipidemi a with target LDL less than 70 take 1 tablet by mouth daily 90 Tablet 0 01/25/2023 3 Discontinued documented as of this encounter (statuses as of 04/21/2023) Active Problems Problem Noted Date Prostate cancer [...] as of this encounter (statuses as of 04/21/2023) Resolved Problems Problem Noted Date Resolved Date Dyslipidemia, goal LDL below 100 07/31/2019 01/13/2020 HTN, goal below 140/90 10/16/2015 6 Lipoma of skin 10/27/2011 07/31/2019 FAM HX-DIABETES MELLITUS mother 12/10/2001 11/23/2018 FAM HX-Hypertension father 12/10/200111/23 documented as of this encounter (statuses as of 04/21/2023) Immunizations Name Administration Dates Next Due PPD [...] encounter Miscellaneous Notes * Telephone Encounter - Muna Dodson DO - 04/21/2023 11:53 AM EDT Signed Prescriptions: Disp Refills metFORMIN HCl 500 MG Oral Tablet (Glucopha*360 Ta*0 Sig: take 2 tablets by mouth before breakfast and 2 tablets AT EVENING MEAL Authorizing Provider: MUNA DODSON Atorvastatin Calcium 40 MG Oral Tablet (Li*90 Tab*0 Sig: take 1 tablet by mouth once daily Authorizing Provider: MUNA DODSON * Telephone Encounter - Liban Baldwin hotel registration clerk - 04/21/2023 11:20 AM EDTPending Prescriptions: Disp Refills metFORMIN HCl 500 MG Oral Tablet (Glucopha*360 Ta*0 Sig: take 2 tablets by mouth before breakfast and 2 tablets AT EVENING MEAL Atorvastatin Calcium 40 MG Oral Tablet (Li*90 Tab*0 Sig: take 1 tablet by mouth once daily * Telephone Encounter - Liban Baldwin hotel registration clerk - 04/21/2023 11:20 AM EDT Received message from [facility] regarding patient needing appointment and labs. Placed call to patient ayalavise. Left message on voicemail advising of required labs and to call back for an appointment. Thank you, Liban Baldwin Promotional Advertising Assistant Ranjith Sina [facility] 04/21/2023, 11:20 AM * Telephone Encounter - Wilfredo Conway [facility] - 04/20/2023 5:14 PM EDTPending Prescriptions: Disp Refills metFORMIN HCl 500 MG Oral Tablet (Glucopha*360 Ta*0 Sig: take 2 tablets by mouth before breakfast and 2 tablets AT EVENING MEAL Atorvastatin Calcium 40 MG Oral Tablet (Li*90 Tab*0 Sig: take 1 tablet by mouth once daily * Telephone Encounter - Wilfredo Conway RPh - 04/20/2023 5:08 PM EDT 2nd attempt Unable to authorize medication refills for pended medication(s) at this time. Part of the protocol criteria used for refill authorization was not satisfied. Lab orders placed 01-04-23, 04-20-23. Please contact patient to schedule office visit with his PRIMARY CARE and advise of labs ordered for blood draw AND URINE specimen (patient will have to be able to void to provide sample).. Recommendpatient to fast if able for labs. Patient may still have water and regular medications. Advise to obtain labs at earliest opportunity Last Visit: 07/08/2022 (in office), 01/13/2020 (telemedicine) Return in about 6 months (around 01/05/2023), Next Visit: Visit date not found After contacting patient, please forward request to Fabian Cox DO. Pending Prescriptions: Disp Refills metFORMIN HCl 500 MG Oral Tablet (Glucoph*360 Ta*0 Sig: take 2 tablets by mouth before breakfast and 2 tablets AT EVENING MEAL Atorvastatin Calcium 40 MG Oral Tablet (L*90 Tab*0 Sig: take 1 tablet by mouth once daily Last Visit: 07/08/2022 (in office), 01/13/2020 (telemedicine) Next Visit: Visit date not found If no future appointments scheduled, and last appointment is greater than a year ago, please schedule patient for a follow-up appointment Last date the medication was ordered: 04-05-22, 01-25-23 [facility]: [id number] Is this request for a controlled substance? No Urine Drug Screen:No results found for this or any previous visit. Patient Phone Numbers Labs: Lab Results Component Value Date/Time CREAT 1.0 07/08/2022 12:02 PM CREAT 1.2 02/25/2020 10:04 AM POTASSIUM 4.4 07/08/2022 12:02 PM POTASSIUM 4.2 01/23/2020 10:19 AM TSH 1.99 07/08/2022 12:02 PM LDLCALC 80 11/19/2021 09:05 AM LDLCALC 61 09/19/2016 10:27 AM LDLDIRECT 62 01/23/2020 10:19 AM ALT 13 07/08/2022 12:02 PM ALT 19 01/23/2020 10:19 AM HGBA1C 8.8 (H) 05/23/2022 08:23 AM HGBA1C 7.2 (H) 01/23/2020 10:19 AM Thanks, Abisai Dukes.Ph. Clinical Pharmacist [facility] [phone] ext [phone] 04/20/2023,5:08 PM documented in this encounter Plan of Treatment Scheduled Orders Name Type Priority Associated Diagnoses Orde r Schedule COMPREHENSIVE METABOLIC PANEL Lab Routine Type 2 diabetes mellitus with hemoglobin A1c goal of less than 7.0% (HCC) Essential hypertension with goal blood pressure less than 140/90 Encounter for long-term (current) use of medications Expected: 04/21/2023 (Approximate), Expires: 04/20/2024 VITAMIN B12 Lab Routine Encounter for long-term (current) use of medications Encounter for vitamin deficiency screening Expected: 04/21/2023 (Approximate), Expires: 04/20/2024 Health Maintenance Due Date Last Done Comments [...] as of this encounter Visit Diagnoses Diagnosis Essential hypertension with goal blood pressure less than 140/90- Primary Type 2 diabetes mellitus with hemoglobin A1c goal of less than 7.0% (HCC) Hyperlipidemia with target LDL less than 70 Other and unspecified hyperlipidemia Encounter for long-term (current) use of medications Encounter for long-term (current) use of other medications Encounter for vitamin deficiency screening Screening for other and unspecified endocrine, nutritional, metabolic, and immunity disorders documented in this encounter Care Teams Spot Welder Body Assembly Relationship Specialty Start Date End Date Fabian Cox, DO [address] [facility] [place] [address] PCP - General Family Medicine 01/18/16 documented as of this encounter
== END 2023-07-14 13:35 | disposition home or self-care (01) | DRG 64 ==
LOC: EDINP 20:19 → ED 20:19 → OBSVTOIN 07-12 00:56 → 2N 07-12 04:03